=== PATIENT | male | born 1935 | race Caucasian/White ===

== ENCOUNTER 2018-04-22 19:34 | Inpatient (IN) | payer MEDICARE ==
[~2018-04-22] VITALS: Ht 188 cm; Wt 98.5 kg
[2018-04-22] MEDS ORDERED: FINA5TAB4 PO (20:23)
[2018-04-22] MEDS ORDERED: FLUT9.9S NS (20:23)
[2018-04-22] MEDS ORDERED: DONE10TA7 PO (20:23)
[2018-04-22] MEDS ORDERED: QUET25TA5 PO (20:23)
[2018-04-22] MEDS ORDERED: ATOR10TA60 PO (20:23)
[2018-04-22] MEDS ORDERED: MEMA28CA PO (20:23)
[2018-04-22] MEDS ORDERED: PIMA17TA PO (20:23)
[2018-04-22] MEDS ORDERED: LISI-334 PO (20:23)
[2018-04-22] MEDS ORDERED: CALC-98 PO (20:23)
[2018-04-22] MEDS ORDERED: MIRT7.5T8 PO (20:23)
[2018-04-22] MEDS ORDERED: ROPI1TAB PO (20:23)
[2018-04-22] MEDS ORDERED: BUSP15TA PO (20:23)
[2018-04-22] MEDS ORDERED: TAMS0.4C2 PO (20:23)
[2018-04-22] MEDS ORDERED: MULT-671 PO ×2 (20:23)
[2018-04-22] MEDS ORDERED: ACET325T21 PO (20:23)
[2018-04-22] MEDS ORDERED: ASPI-612 PO (20:23)
[2018-04-22] MEDS ORDERED: TRAZ-85 PO (20:23)
[2018-04-22] MEDS ORDERED: MAGNESIUM HYDROXIDE 2,400 MG/30 ML ORAL.SUSP. PO PRN (21:00)
[2018-04-22] MEDS ORDERED: METHYL SALICYLATE/MENTHOL TOPICAL OINTMENT 29GM TUBE. TP PRN (21:00)
[2018-04-22] MEDS ORDERED: MAG HYDROX/AL HYDROX/SIMETH 30 ML ORAL.SUSP PO PRN (21:00)
[2018-04-22] MEDS ORDERED: ACETAMINOPHEN 325 MG TABLET PO PRN (21:15)
[2018-04-22 21:20] VITALS: BP 161/82
[2018-04-22] MEDS: MEMANTINE 10 MG TABLET. PO SCH (21:37)
[2018-04-22] MEDS: DONEPEZIL HCL 10 MG TABLET PO SCH (21:37)
[2018-04-22] MEDS: rOPINIRole 1 MG TABLET. PO SCH (21:37)
[2018-04-22] MEDS: traZODone 50 MG TABLET. PO PRN (21:37)
[2018-04-22] MEDS: MIRTAZAPINE 7.5 MG TABLET. PO SCH (21:37)
[2018-04-22] MEDS: ATORVASTATIN CALCIUM 10 MG TABLET. PO SCH (21:37)
[2018-04-23 05:52] VITALS: BP 149/84
[2018-04-23 07:50] LABS: BASO % 1 % (0-3); EOS # 0.4 x10^3/uL (0.0-0.7); EOS % 7 % (0-3); HEMATOCRIT 44.1 % (39.0-53.0); HEMOGLOBIN 14.7 g/dL (13.0-17.5); LYMPH % 20 % (24-48); MEAN CORPUSCULAR HEMOGLOBIN 30 pg (25-35); MEAN CORPUSCULAR HGB CONC 33 g/dL (31-37); MEAN CORPUSCULAR VOLUME 91 fL (79-100); MONO # 0.6 x10^3/uL (0.0-1.1); MONO % 12 % (0-9); NEUT # 2.9 x10^3uL (1.8-7.7); NEUT % 60 % (31-73); PLATELET COUNT 143 x10^3/uL (140-400); RED BLOOD COUNT 4.83 x10^6/uL (4.30-5.70); RED CELL DISTRIBUTION WIDTH 14.4 % (11.5-14.5)
[2018-04-23 07:58] LABS: ALBUMIN 3.9 g/dL (3.4-5.0); GFR 71.2; MAGNESIUM 2.3 mg/dL (1.8-2.4); POTASSIUM 4.5 mmol/L (3.5-5.1); TOTAL BILIRUBIN 0.4 mg/dL (0.2-1.0); TOTAL PROTEIN 7.7 g/dL (6.4-8.2)
[2018-04-23] MEDS ORDERED: PIMAVANSERIN TARTRATE 34 MG PO SCH (09:00)
[2018-04-23] MEDS: MULTIVITAMIN I-VITE TABLET. PO SCH ×3 (09:00→19:26)
[2018-04-23] MEDS: busPIRone 15 MG TABLET. PO SCH (09:08)
[2018-04-23] MEDS: LISINOPRIL 20 MG TABLET PO SCH (09:08)
[2018-04-23] MEDS: ASPIRIN ENTERIC COATED 81 MG TABLET.DR. PO SCH (09:08)
[2018-04-23] MEDS: FLUTICASONE 50MCG/NASAL SPRAY 16GM BOTTLE. NS SCH (09:08)
[2018-04-23] MEDS: FINASTERIDE 5 MG TABLET PO SCH (09:08)
[2018-04-23] MEDS: CALCIUM CARB/VIT D3 500/200 TABLET PO SCH (09:08)
[2018-04-23] MEDS: MEMANTINE 10 MG TABLET. PO SCH ×2 (09:08→19:26)
[2018-04-23] MEDS: TAMSULOSIN 0.4 MG CAP.ER.24H. PO SCH (09:08)
[2018-04-23 14:03] LABS: THYROID STIM HORMONE (TSH) 1.593 uIU/mL (0.358-3.740)
--- NOTE | 2018-04-23 14:13 | EKG ---
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
[2018-04-23] MEDS: CHOLECALCIFEROL (VITAMIN D3) 50,000 UNIT CAPSULE PO SCH (16:24)
[2018-04-23 16:34] VITALS: BP 112/75
[2018-04-23] MEDS: rOPINIRole 1 MG TABLET. PO SCH (19:26)
[2018-04-23] MEDS: DONEPEZIL HCL 10 MG TABLET PO SCH (19:26)
[2018-04-23] MEDS: ATORVASTATIN CALCIUM 10 MG TABLET. PO SCH (19:26)
[2018-04-23] MEDS: MIRTAZAPINE 7.5 MG TABLET. PO SCH (19:26)
[2018-04-23] MEDS: traZODone 50 MG TABLET. PO PRN ×2 (19:27→21:57)
[2018-04-23 22:16] LABS: THYROXINE 7.5 ug/dL (4.5-12.0)
[2018-04-24] VITALS (9 sets, daily range): BP systolic 68–134; BP diastolic 38–77
[2018-04-24 00:12] LABS: HEMOGLOBIN A1C 5.2 % (4.8-5.6)
--- NOTE | 2018-04-24 00:22 | CONS ---
DATE OF CONSULTATION: 04/23/2018 REASON FOR CONSULTATION: Medical management. HISTORY OF PRESENT ILLNESS: The patient is an 82-year-old male patient who lives at home with his and who was seen in the Emergency Room of [facility] with increased agitation after taking Seroquel for 5 days. He has increased agitation with delusional thoughts, visual hallucination. He told his is leaving him, but his also will kill him. He has not slept since last Thursday thinking they would be evicted due to not paying the rent. The patient was very confused, did not recognize his . 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 He knew that he was in the hospital, but does not know why he is there. He said that his and daughter are his friends. He was diagnosed with dementia about 4-5 years ago, but daughter thinks that his dementia symptoms were mild and his symptom has worsened. The patient repeats the same questions on and on, over and over and his continues to redirect him many times per day. Apparently he became more hostile and originally his family wanted to place the patient at [facility] in [place] where he stayed about 1-1/2 years ago; however, his daughter is a psychologist in a private practice, and she and her mom agreed to admit him to [facility] before going to [facility] and therefore, he was admitted to this facility for inpatient psychiatric stabilization. PAST MEDICAL HISTORY: Significant for anxiety, B12 deficiency, benign prostatic hypertrophy, CVA, hypertension, osteoporosis, and spinal stenosis of the cervical and lumbar spine. PAST SURGICAL HISTORY: Significant for inguinal hernia repair and appendectomy. ALLERGIES: He has no known drug allergies. FAMILY HISTORY: Unremarkable. SOCIAL HISTORY: He is , lives with his . He drinks 1-2 beers per week. He is a former smoker, quit in 1968. REVIEW OF SYSTEMS: Unobtainable. The patient is extremely confused and demented. PHYSICAL EXAMINATION: GENERAL: On examining him, he was sitting comfortably in his chair, in no apparent respiratory distress. There was definitely no pallor, jaundice or cyanosis. No lymphadenopathy, no thyromegaly. No jugular venous distension. No lower limb edema. VITAL SIGNS: His heart rate was 66, blood pressure 149/84, temperature was 96.8, respiratory rate was 18 and oxygen saturation was 97%. HEAD, EYES, EARS, NOSE AND THROAT: Showed normocephalic, atraumatic. NECK: Supple. HEART: Showed normal first and second heart sounds with no gallop, rub or murmur. CHEST: Clear to auscultation. No crepitation or rhonchi. ABDOMEN: Distended, soft, nontender. NEUROLOGIC: He is demented without any obvious lateralizing sign. All his cranial nerves are intact. He moves extremities without difficulty, ambulates with a walker. LABORATORY DATA: Showed a white cell count of 5000, hemoglobin 15, hematocrit 44, MCV 91, and platelet count of 143,000 with normal manual differential. His chemistry showed a serum sodium 142, potassium 4.5, chloride 106, bicarbonate 30, anion gap of 6, BUN 22, creatinine 1, estimated GFR was 71 mL per minute, his glucose was 88, calcium was 9, magnesium 2.3. Estimated serum iron was 42, TIBC was 283. Iron saturation was 15%. Total bilirubin, AST, ALT, alkaline phosphatase were normal. Total protein was 7.7, albumin 3.9. Serum triglycerides were 52, total cholesterol 113, LDL was 39, VLDL was 10, and HDL cholesterol was 64, and ratio 1. Vitamin B12 was 1089 picogram. 25-hydroxy vitamin D was 26 and TSH was 1.593. His treponema pallidum antibody was nonreactive. IMPRESSION: In summary, this is an 82-year-old male patient, who lives with his and was admitted. Because of that, did not sleep at all. . He also has delusional thoughts and visual hallucination. He thought that his is leaving him today and also is planning to kill him. He was started on Seroquel 5 days prior for diagnosis of dementia. The patient became very confused, did not recognize his family. He seems hallucinating, the ceiling is moving, suspicious, and paranoid. will leave him or kill him. He failed outpatient treatment and was [facility] for [facility] psychiatric stabilization. PAST MEDICAL HISTORY: Significant for benign prostatic hypertrophy, hyperlipidemia, hypertension, restless leg syndrome, vitamin B12 deficiency, CVA, and vitamin B12 deficiency. PAST SURGICAL HISTORY: Significant for inguinal hernia repair and appendectomy. His vital signs and lab works are within acceptable range. The only abnormality is vitamin D low and I will write an order for his vitamin D. All in all, the patient seems to be medically very stable. I will certainly continue with all his current medication for the time being. I will follow all his lab works that are still pending at the time of this dictation. Thank you, Dr. Brooks, for allowing me to participate in the care of this patient. SUZAN HERNANDEZ MD DR: ALVIN/simba JOB#: [id number] / [id number]
[2018-04-24] MEDS: ASPIRIN ENTERIC COATED 81 MG TABLET.DR. PO SCH (08:44)
[2018-04-24] MEDS: MULTIVITAMIN I-VITE TABLET. PO SCH ×2 (08:45→20:11)
[2018-04-24] MEDS: busPIRone 15 MG TABLET. PO SCH (08:45)
[2018-04-24] MEDS: FLUTICASONE 50MCG/NASAL SPRAY 16GM BOTTLE. NS SCH (08:45)
[2018-04-24] MEDS: TAMSULOSIN 0.4 MG CAP.ER.24H. PO SCH (08:45)
[2018-04-24] MEDS: FINASTERIDE 5 MG TABLET PO SCH (08:46)
[2018-04-24] MEDS: CALCIUM CARB/VIT D3 500/200 TABLET PO SCH (08:46)
[2018-04-24] MEDS: MEMANTINE 10 MG TABLET. PO SCH ×2 (08:46→20:12)
--- NOTE | 2018-04-24 08:53 | HP ---
ADMIT DATE: 04/23/2018 PSYCHIATRIC ADMISSION HISTORY/EVALUATION This is a late entry, 04/23/2018, covers elements not covered in my initial note 04/23/2018. I met with the patient in the evening of 04/23/2018 and previously discussed with nursing staff on 04/22/2018 and 04/23/2018 to gather information from [facility] where he presented on account of increased confusion, agitation, aggression, while living at home and reportedly, he was recently started on Seroquel about 5 days ago and has been increasingly delusional since then. He thinks he and his are going to be evicted from their apartment and believes his was trying to kill him or leave him. He has had visual hallucinations, seeing the ceiling moving, suspicious and paranoid. Behaviors have been dangerous, out of control, unmanageable, failed outpatient psychiatric interventions, and he presented to the Emergency Room. He has not been sleeping at all, believes he is quite poor. He has failed outpatient psychiatric interventions with his neurologist resulting in this referral. CHIEF COMPLAINT: "I came today." The patient in fact was admitted on 04/22/2018. He is being admitted by his who is his DPOA, Mikayla Alarcon, referred by his primary care physician, Dr. Richelle Waters. HISTORY OF PRESENT ILLNESS: The patient has a history of dementia, Alzheimer's, vascular, possibly Lewy body. He has been residing at home as noted and getting increasingly psychotic, paranoid, hallucinating, agitated, aggressive. He has had significant insomnia as noted, behaviors have been dangerous resulting in this referral. No clear history of bipolar disorder, suicidal or homicidal ideation. PAST PSYCHIATRIC HISTORY: As above. PAST MEDICAL HISTORY: B12 deficiency, BPH status post cerebrovascular accident, status post C. diff infection, hypertension, hyperlipidemia, osteoporosis, spinal stenosis. ALLERGIES: Negative. CODE STATUS: FULL CODE. DIET: Regular. Takes medications whole. Ambulates ad chanel with walker. UA at [facility] Emergency Room 823 was negative. CURRENT PSYCHOTROPICS: BuSpar 15 mg daily, Seroquel was discontinued, Namenda 10 b.i.d., Remeron 7.5 mg at bedtime, Aricept 10 mg at bedtime, trazodone 50 at bedtime p.r.n. FAMILY HISTORY: Noncontributory. SOCIAL HISTORY: No alcohol, drug abuse, physical, sexual or elder abuse history is noted. Not known to be a perpetrator. REACTION TO HOSPITALIZATION: The patient accepting, but not sure where he is. ASSETS: Supportive family. REVIEW OF SYSTEMS: Ambulation impaired with walker. No CV, , pulmonary, eye, ENT system symptoms on review. MENTAL STATUS EXAMINATION: Oriented to himself, unaware of the date, year or where he was. Otherwise, pleasant, hyperverbal, unable to tell me what city he lives in, pointing towards the panoramic doors of the unit stating that is where he came from. Insight, judgment, recent and remote memory, attention, concentration, fund of knowledge poor, consistent with his diagnosis. No active suicidal or homicidal ideation. LABORATORY DATA: Reviewed. IMPRESSION: Major neurocognitive disorder, possibly Lewy body, probably Alzheimer, vascular with delusion; depression; behavioral disturbance; anxiety disorder, unspecified; impulse control disorder, unspecified. Rest as above. PLAN: Admit to Geropsychiatry Unit at [facility]. I will see the patient daily individually from a psychiatric standpoint. Medical followup with Dr. Petersen/Dr. Damon. Continue current psychotropics, observe baseline; then make adjustments as clinically indicated. May start him on an Exelon patch as well given the fact that he may have Lewy body dementia. He has failed Seroquel and apparently has failed treatment on Nuplazid as well. We will have to consider other different options post baseline assessment. Estimated length of stay 10-12 days. DISPOSITION: Plans to memory care in [place]. MAN Beverly CONTI MD DR: ROSALEE/simba JOB#: [id number] / [id number]
[2018-04-24] MEDS: LISINOPRIL 20 MG TABLET PO SCH (09:00)
[2018-04-24] MEDS: ATORVASTATIN CALCIUM 10 MG TABLET. PO SCH (20:11)
[2018-04-24] MEDS: DONEPEZIL HCL 10 MG TABLET PO SCH (20:11)
[2018-04-24] MEDS: rOPINIRole 1 MG TABLET. PO SCH (20:12)
[2018-04-24] MEDS: MIRTAZAPINE 7.5 MG TABLET. PO SCH (20:12)
[2018-04-24] MEDS: traZODone 50 MG TABLET. PO PRN (20:13)
[2018-04-24 21:37] LABS: BASO # 0.1 x10^3/uL (0.0-0.2); BASO % 1 % (0-3); EOS # 0.2 x10^3/uL (0.0-0.7); EOS % 3 % (0-3); HEMATOCRIT 39.8 % (39.0-53.0); HEMOGLOBIN 13.4 g/dL (13.0-17.5); LYMPH # 1.4 x10^3/uL (1.0-4.8); LYMPH % 22 % (24-48); MEAN CORPUSCULAR HEMOGLOBIN 30 pg (25-35); MEAN CORPUSCULAR HGB CONC 34 g/dL (31-37); MEAN CORPUSCULAR VOLUME 90 fL (79-100); MONO # 0.8 x10^3/uL (0.0-1.1); MONO % 12 % (0-9); NEUT # 4.1 x10^3uL (1.8-7.7); NEUT % 62 % (31-73); PLATELET COUNT 141 x10^3/uL (140-400); RED BLOOD COUNT 4.43 x10^6/uL (4.30-5.70); RED CELL DISTRIBUTION WIDTH 14.5 % (11.5-14.5); WHITE BLOOD COUNT 6.6 x10^3/uL (4.0-11.0)
[2018-04-24 21:46] LABS: BGAS PH 7.37 (7.35-7.46)
[2018-04-24 22:13] LABS: ALBUMIN 3.5 g/dL (3.4-5.0); ALBUMIN/GLOBULIN RATIO 1.1 (1.0-1.7); CALCIUM 8.6 mg/dL (8.5-10.1); CREATININE 1.3 mg/dL (0.7-1.3); GFR 52.6; TOTAL BILIRUBIN 0.5 mg/dL (0.2-1.0); TOTAL PROTEIN 6.8 g/dL (6.4-8.2)
[2018-04-24 22:18] LABS: POTASSIUM 5.1 mmol/L (3.5-5.1)
--- NOTE | 2018-04-24 22:22 | PDOC ---
Exam Note: Fredi Note: Please also refer to the separate dictated note~for this date of service dictated separately.~Patient seen individually. Discussed the patient with Nursing staff reviewed the chart.~Reviewed interim history and current functioning. Reviewed vital signs,~Labs/ Radiology~and current medications noted below. Continue current treatment with the changes noted in the dictated addendum note Assessment: Vital Signs: Vital Signs Date Time Temp Pulse Resp B/P (MAP) Pulse Ox O2 Delivery O2 Flow Rate FiO2 04/24/18 21:52 97.6 63 18 104/59 (74) 96 Room Air 04/24/18 21:36 1.0 I&O Intake and Output 04/24/18 07:00 Intake Total 1080 ml Balance 1080 ml Intake Oral 1080 ml # Bowel Movements 1 Labs: Laboratory Tests Test 04/24/18 21:05 04/24/18 21:18 04/24/18 21:30 Glucose (Fingerstick) 165 mg/dL (70-99) H White Blood Count 6.6 x10^3/uL (4.0-11.0) Red Blood Count 4.43 x10^6/uL (4.30-5.70) Hemoglobin 13.4 g/dL (13.0-17.5) Hematocrit 39.8 % (39.0-53.0) Mean Corpuscular Volume 90 fL (79-100) Mean Corpuscular Hemoglobin 30 pg (25-35) Mean Corpuscular Hemoglobin Concent 34 g/dL (31-37) Red Cell Distribution Width 14.5 % (11.5-14.5) Platelet Count 141 x10^3/uL (140-400) Neutrophils (%) (Auto) 62 % (31-73) Lymphocytes (%) (Auto) 22 % (24-48) L Monocytes (%) (Auto) 12 % (0-9) H Eosinophils (%) (Auto) 3 % (0-3) Basophils (%) (Auto) 1 % (0-3) Neutrophils # (Auto) 4.1 x10^3uL (1.8-7.7) Lymphocytes # (Auto) 1.4 x10^3/uL (1.0-4.8) Monocytes # (Auto) 0.8 x10^3/uL (0.0-1.1) Eosinophils # (Auto) 0.2 x10^3/uL (0.0-0.7) Basophils # (Auto) 0.1 x10^3/uL (0.0-0.2) Sodium Level 140 mmol/L (136-145) Potassium Level 5.1 mmol/L (3.5-5.1) Chloride Level 105 mmol/L (98-107) Carbon Dioxide Level 25 mmol/L (21-32) Anion Gap 10 (6-14) Blood Urea Nitrogen 36 mg/dL (8-26) H Creatinine 1.3 mg/dL (0.7-1.3) Estimated GFR (Cockcroft-Gault) 52.6 BUN/Creatinine Ratio 28 (6-20) H Glucose Level 153 mg/dL (70-99) H Lactic Acid Level 1.2 mmol/L (0.4-2.0) Calcium Level 8.6 mg/dL (8.5-10.1) Total Bilirubin 0.5 mg/dL (0.2-1.0) Aspartate Amino Transferase (AST) 29 U/L (15-37) Alanine Aminotransferase (ALT) 24 U/L (16-63) Alkaline Phosphatase 111 U/L (46-116) Creatine Kinase 167 U/L (39-308) Creatine Kinase MB (Mass) 2.2 ng/mL (0.0-3.6) Creatine Kinase MB Relative Index 1.3 % (0-4) Troponin I Quantitative < 0.017 ng/mL (0-0.055) Total Protein 6.8 g/dL (6.4-8.2) Albumin 3.5 g/dL (3.4-5.0) Albumin/Globulin Ratio 1.1 (1.0-1.7) Blood pH 7.37 (7.35-7.46) Blood Gas PCO2 42 mmHg (35-46) Blood Gas PO2 98 mmHg (71-100) Blood Gas HCO3 24 mmol/L (21-28) Arterial Bld O2 Saturation (Calc) 98 % (92-99) FiO2 33 % Current Medications: Meds: Current Medications Multi-Ingredient Ointment (Analgesic [place]) 1 lulu PRN QID PRN TP MUSCLE PAIN; Start 04/22/18 at 21:00 Al Hydroxide/Mg Hydroxide (Mylanta Plus Xs) 15 ml PRN AFTMEALHC PRN PO DYSPEPSIA; Start 04/22/18 at 21:00 Magnesium Hydroxide (Milk Of Magnesia) 2,400 mg PRN QHS PRN PO CONSTIPATION; Start 04/22/18 at 21:00 Mirtazapine (Remeron) 7.5 mg HS PO Last administered on 04/24/18 20:12; Start 04/22/18 at 21:00 Buspirone HCl (Buspar) 15 mg DAILY PO Last administered on 04/24/18 08:45; Start 04/23/18 at 09:00 Donepezil HCl (Aricept) 10 mg QHS PO Last administered on 04/24/18 20:11; Start 04/22/18 at 21:00 Memantine (Namenda) 10 mg BID PO Last administered on 04/24/18 20:12; Start at 21:00 Trazodone HCl (Desyrel) 50 mg PRN QHS PRN PO INSOMNIA Last administered on 04/24 20:13; Start 04/22/18 at 21:15 Non-Formulary Medication (Pimavanserin Tartrate (Nuplazid)) 34 mg DAILY PO ; Start 04/23/18 at 09:00; Stop 04/23/18 at 09:00; Status DC Acetaminophen (Tylenol) 650 mg PRN Q4HRS PRN PO PAIN / TEMP; Start 04/22/18 at 21:15 Lisinopril (Prinivil) 20 mg DAILY PO Last administered on 04/23/18at 09:08; Start 04/23/18 at 09:00 Tamsulosin HCl (Flomax) 0.4 mg DAILY PO Last administered on 04/24/18 08:45; Start 04/23/18 at 09:00 Aspirin (Aspirin Enteric Coated) 81 mg DAILYWBKFT PO Last administered on 08:44; Start 04/23/18 at 08:00 Atorvastatin Calcium (Lipitor) 10 mg QHS PO Last administered on 04/24/18 20: 11; Start 04/22/18 at 21:00 Calcium/Vitamin D (Oscal D 500mg/ 200uts) 1 tab DAILY PO Last administered on 08:46; Start 04/23/18 at 09:00 Finasteride (Proscar) 5 mg DAILY PO Last administered on 04/24/18 08:46; Start 04/23/18 at 09:00 Fluticasone Propionate (Flonase) 1 spray DAILY NS Last administered on 08:45; Start 04/23/18 at 09:00 Multivitamins/ Minerals (I-Liya) 1 tab QHS PO Last administered on 04/24/18 20 :11; Start 04/23/18 at 09:00 Multivitamins/ Minerals (I-Liya) 2 tab DAILY PO Last administered on 04/24/18 08:45; Start 04/23/18 at 09:00 Ropinirole HCl (Requip) 1 mg HS PO Last administered on 04/24/18 20:12; Start 04/22/18 at 21:00 Vitamin D (Vitamin D3) 50,000 unit WEEKLY PO Last administered on 04/23/18 16: 24; Start 04/23/18 at 16:00 Olanzapine (ZyPREXA ZYDIS) 2.5 mg PRN Q2HR PRN PO PSYCHOSIS Last administered on 04/24/18at 20:13; Start 04/23/18 at 21:45 Fluvoxamine Maleate (Luvox) 25 mg HS PO Last administered on 04/24/18 20:12; Start 04/24/18 at 21:00 Sodium Chloride 500 ml @ 0 mls/hr 1X ONCE IV ; Start 04/24/18 at 22:15; Stop at 22:16; Status UNV Active Scripts Active Reported Acetaminophen 325 Mg Tablet 650 Mg PO PRN Q4HRS PRN Aspirin Ec (Aspirin) 81 Mg Tablet.dr 81 Mg PO DAILY Atorvastatin Calcium 10 Mg Tablet 10 Mg PO QHS Buspirone Hcl 15 Mg Tablet 15 Mg PO DAILY Calcium + Vitamin D Tablet (Calcium Carbonate/Vitamin D3) 1 Each Tablet 1 Tab PO DAILY Donepezil Hcl 10 Mg Tablet 10 Mg PO HS Finasteride 5 Mg Tablet 5 Mg PO DAILY Flonase Allergy Relief (Fluticasone Propionate) 9.9 Ml [place].susp 1 Sprays NS DAILY Lisinopril 20 Mg Tablet 20 Mg PO DAILY Namenda Xr (Memantine Hcl) 28 Mg Cap.spr.24 28 Mg PO DAILY Mirtazapine 7.5 Mg Tablet 7.5 Mg PO HS Lkkkv-Kabcrik-Lxyicypf Tablet (Multivit-Min/Iron Fum/Folic AC) 1 Each Tablet 1 Tab PO HS Stybe-Gotulhc-Hkahqnue Tablet (Multivit-Min/Iron Fum/Folic AC) 1 Each Tablet 2 Tab PO DAILY Seroquel (Quetiapine Fumarate) 25 Mg Tablet 12.5 Mg PO PRN PRN Requip (Ropinirole Hcl) 1 Mg Tablet 1 Mg PO HS Tamsulosin Hcl 0.4 Mg Cap.er.24h 0.4 Mg PO DAILY Trazodone Hcl 50 Mg Tablet 50 Mg PO PRN QHS PRN I have reviewed the current psychotropics carefully including drug interactions. Risk benefit ratio favors no change other than as noted in my dictated progress note. Diagnosis: Problems: (1) Anxiety disorder (2) Dementia in Alzheimer's disease with delusions (3) Dementia in Alzheimer's disease with depression (4) Dementia, vascular, with delusions (5) Dementia, vascular, with depression (6) Impulse control disorder ROSAILE CONTI MD Apr 24, 2018 22:22
--- NOTE | 2018-04-24 22:22 | EKG ---
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
[2018-04-24] MEDS ORDERED: IV NORMAL SALINE 500ML 500 ML IV ONE (22:30)
[2018-04-24] MEDS ORDERED: IV NORMAL SALINE 1,000ML 1,000 ML IV SCH (23:00)
[2018-04-25 02:04] VITALS: BP 114/66
[2018-04-25] MEDS ORDERED: IV NORMAL SALINE 1,000ML 1,000 ML IV ONE (03:00)
[2018-04-25 06:59] LABS: HEMATOCRIT 40.6 % (39.0-53.0); HEMOGLOBIN 13.6 g/dL (13.0-17.5); RED BLOOD COUNT 4.47 x10^6/uL (4.30-5.70); RED CELL DISTRIBUTION WIDTH 14.3 % (11.5-14.5); WHITE BLOOD COUNT 6.4 x10^3/uL (4.0-11.0)
[2018-04-25 07:13] LABS: ALBUMIN 3.3 g/dL (3.4-5.0); ALBUMIN/GLOBULIN RATIO 0.9 (1.0-1.7); CALCIUM 8.4 mg/dL (8.5-10.1); GFR 71.2; POTASSIUM 4.6 mmol/L (3.5-5.1); TOTAL BILIRUBIN 0.5 mg/dL (0.2-1.0); TOTAL PROTEIN 6.8 g/dL (6.4-8.2)
[2018-04-25] MEDS: FINASTERIDE 5 MG TABLET PO SCH (08:40)
[2018-04-25] MEDS: CALCIUM CARB/VIT D3 500/200 TABLET PO SCH (08:40)
[2018-04-25] MEDS: MULTIVITAMIN I-VITE TABLET. PO SCH ×2 (08:40→21:12)
[2018-04-25] MEDS: ASPIRIN ENTERIC COATED 81 MG TABLET.DR. PO SCH (08:40)
[2018-04-25] MEDS: FLUTICASONE 50MCG/NASAL SPRAY 16GM BOTTLE. NS SCH (08:41)
[2018-04-25] MEDS: busPIRone 15 MG TABLET. PO SCH (08:41)
[2018-04-25] MEDS: TAMSULOSIN 0.4 MG CAP.ER.24H. PO SCH (08:49)
[2018-04-25] MEDS: LISINOPRIL 20 MG TABLET PO SCH (08:49)
[2018-04-25] MEDS: MEMANTINE 10 MG TABLET. PO SCH ×2 (08:49→21:13)
[2018-04-25 12:15] VITALS: BP 125/81
[2018-04-25 16:30] VITALS: BP 134/62
--- NOTE | 2018-04-25 20:03 | PDOC ---
Exam Note: Fredi Note: Please also refer to the separate dictated note~for this date of service dictated separately.~Patient seen individually. Discussed the patient with Nursing staff reviewed the chart.~Reviewed interim history and current functioning. Reviewed vital signs,~Labs/ Radiology~and current medications noted below. Continue current treatment with the changes noted in the dictated addendum note Assessment: Vital Signs: Vital Signs Date Time Temp Pulse Resp B/P (MAP) Pulse Ox O2 Delivery O2 Flow Rate FiO2 04/25/18 16:30 98.1 83 18 134/62 (86) 96 04/25/18 12:15 Room Air 04/24/18 21:36 1.0 I&O Intake and Output 04/25/18 07:00 Intake Total 960 ml Balance 960 ml Intake Oral 960 ml # Bowel Movements 1 Labs: Laboratory Tests Test 04/24/18 21:05 04/24/18 21:18 04/24/18 21:30 04/25/18 06:43 Glucose (Fingerstick) 165 mg/dL (70-99) H White Blood Count 6.6 x10^3/uL (4.0-11.0) 6.4 x10^3/uL (4.0-11.0) Red Blood Count 4.43 x10^6/uL (4.30-5.70) 4.47 x10^6/uL (4.30-5.70) Hemoglobin 13.4 g/dL (13.0-17.5) 13.6 g/dL (13.0-17.5) Hematocrit 39.8 % (39.0-53.0) 40.6 % (39.0-53.0) Mean Corpuscular Volume 90 fL (79-100) 91 fL (79-100) Mean Corpuscular Hemoglobin 30 pg (25-35) 30 pg (25-35) Mean Corpuscular Hemoglobin Concent 34 g/dL (31-37) 33 g/dL (31-37) Red Cell Distribution Width 14.5 % (11.5-14.5) 14.3 % (11.5-14.5) Platelet Count 141 x10^3/uL (140-400) 132 x10^3/uL (140-400) L Neutrophils (%) (Auto) 62 % (31-73) Lymphocytes (%) (Auto) 22 % (24-48) L Monocytes (%) (Auto) 12 % (0-9) H Eosinophils (%) (Auto) 3 % (0-3) Basophils (%) (Auto) 1 % (0-3) Neutrophils # (Auto) 4.1 x10^3uL (1.8-7.7) Lymphocytes # (Auto) 1.4 x10^3/uL (1.0-4.8) Monocytes # (Auto) 0.8 x10^3/uL (0.0-1.1) Eosinophils # (Auto) 0.2 x10^3/uL (0.0-0.7) Basophils # (Auto) 0.1 x10^3/uL (0.0-0.2) Sodium Level 140 mmol/L (136-145) 143 mmol/L (136-145) Potassium Level 5.1 mmol/L (3.5-5.1) 4.6 mmol/L (3.5-5.1) Chloride Level 105 mmol/L (98-107) 108 mmol/L (98-107) H Carbon Dioxide Level 25 mmol/L (21-32) 28 mmol/L (21-32) Anion Gap 10 (6-14) 7 (6-14) Blood Urea Nitrogen 36 mg/dL (8-26) H 28 mg/dL (8-26) H Creatinine 1.3 mg/dL (0.7-1.3) 1.0 mg/dL (0.7-1.3) Estimated GFR (Cockcroft-Gault) 52.6 71.2 BUN/Creatinine Ratio 28 (6-20) H 28 (6-20) H Glucose Level 153 mg/dL (70-99) H 93 mg/dL (70-99) Lactic Acid Level 1.2 mmol/L (0.4-2.0) Calcium Level 8.6 mg/dL (8.5-10.1) 8.4 mg/dL (8.5-10.1) L Total Bilirubin 0.5 mg/dL (0.2-1.0) 0.5 mg/dL (0.2-1.0) Aspartate Amino Transferase (AST) 29 U/L (15-37) 23 U/L (15-37) Alanine Aminotransferase (ALT) 24 U/L (16-63) 22 U/L (16-63) Alkaline Phosphatase 111 U/L (46-116) 99 U/L (46-116) Creatine Kinase 167 U/L (39-308) Creatine Kinase MB (Mass) 2.2 ng/mL (0.0-3.6) Creatine Kinase MB Relative Index 1.3 % (0-4) Troponin I Quantitative < 0.017 ng/mL (0-0.055) Total Protein 6.8 g/dL (6.4-8.2) 6.8 g/dL (6.4-8.2) Albumin 3.5 g/dL (3.4-5.0) 3.3 g/dL (3.4-5.0) L Albumin/Globulin Ratio 1.1 (1.0-1.7) 0.9 (1.0-1.7) L Blood pH 7.37 (7.35-7.46) Blood Gas PCO2 42 mmHg (35-46) Blood Gas PO2 98 mmHg (71-100) Blood Gas HCO3 24 mmol/L (21-28) Arterial Bld O2 Saturation (Calc) 98 % (92-99) FiO2 33 % Current Medications: Meds: Current Medications Multi-Ingredient Ointment (Analgesic [place]) 1 lulu PRN QID PRN TP MUSCLE PAIN; Start 04/22/18 at 21:00 Al Hydroxide/Mg Hydroxide (Mylanta Plus Xs) 15 ml PRN AFTMEALHC PRN PO DYSPEPSIA; Start 04/22/18 at 21:00 Magnesium Hydroxide (Milk Of Magnesia) 2,400 mg PRN QHS PRN PO CONSTIPATION; Start 04/22/18 at 21:00 Mirtazapine (Remeron) 7.5 mg HS PO Last administered on 04/24/18at 20:12; Start 04/22/18 at 21:00 Buspirone HCl (Buspar) 15 mg DAILY PO Last administered on 04/25/18at 08:41; Start 04/23/18 at 09:00 Donepezil HCl (Aricept) 10 mg QHS PO Last administered on 04/24/18at 20:11; Start 04/22/18 at 21:00 Memantine (Namenda) 10 mg BID PO Last administered on 04/25/18at 08:49; Start at 21:00 Trazodone HCl (Desyrel) 50 mg PRN QHS PRN PO INSOMNIA Last administered on 04/24 20:13; Start 04/22/18 at 21:15 Non-Formulary Medication (Pimavanserin Tartrate (Nuplazid)) 34 mg DAILY PO ; Start 04/23/18 at 09:00; Stop 04/23/18 at 09:00; Status DC Acetaminophen (Tylenol) 650 mg PRN Q4HRS PRN PO PAIN / TEMP; Start 04/22/18 at 21:15 Lisinopril (Prinivil) 20 mg DAILY PO Last administered on 04/25/18 08:49; Start 04/23/18 at 09:00 Tamsulosin HCl (Flomax) 0.4 mg DAILY PO Last administered on 04/25/18 08:49; Start 04/23/18 at 09:00 Aspirin (Aspirin Enteric Coated) 81 mg DAILYWBKFT PO Last administered on 08:40; Start 04/23/18 at 08:00 Atorvastatin Calcium (Lipitor) 10 mg QHS PO Last administered on 04/24/18 20: 11; Start 04/22/18 at 21:00 Calcium/Vitamin D (Oscal D 500mg/ 200uts) 1 tab DAILY PO Last administered on 08:40; Start 04/23/18 at 09:00 Finasteride (Proscar) 5 mg DAILY PO Last administered on 04/25/18 08:40; Start 04/23/18 at 09:00 Fluticasone Propionate (Flonase) 1 spray DAILY NS Last administered on 08:41; Start 04/23/18 at 09:00 Multivitamins/ Minerals (I-Liya) 1 tab QHS PO Last administered on 04/24/18 20 :11; Start 04/23/18 at 09:00 Multivitamins/ Minerals (I-Liya) 2 tab DAILY PO Last administered on 04/25/18 08:40; Start 04/23/18 at 09:00 Ropinirole HCl (Requip) 1 mg HS PO Last administered on 04/24/18 20:12; Start 04/22/18 at 21:00 Vitamin D (Vitamin D3) 50,000 unit WEEKLY PO Last administered on 04/23/18at 16: 24; Start 04/23/18 at 16:00 Olanzapine (ZyPREXA ZYDIS) 2.5 mg PRN Q2HR PRN PO PSYCHOSIS Last administered on 04/24/18at 20:13; Start 04/23/18 at 21:45 Fluvoxamine Maleate (Luvox) 25 mg HS PO Last administered on 04/24/18at 20:12; Start 04/24/18 at 21:00 Sodium Chloride 500 ml @ 0 mls/hr 1X ONCE IV ; Start 04/24/18 at 22:30; Stop at 02:57; Status DC Sodium Chloride 1,000 ml @ 75 mls/hr [id number] IV Last administered on at 23:04; Start 04/24/18 at 23:00; Stop 04/25/18 at 12:31; Status DC Sodium Chloride 1,000 ml @ 1,000 mls/hr 1X ONCE IV Last administered on at 03:04; Start 04/25/18 at 03:00; Stop 04/25/18 at 03:59; Status DC Active Scripts Active Reported Acetaminophen 325 Mg Tablet 650 Mg PO PRN Q4HRS PRN Aspirin Ec (Aspirin) 81 Mg Tablet.dr 81 Mg PO DAILY Atorvastatin Calcium 10 Mg Tablet 10 Mg PO QHS Buspirone Hcl 15 Mg Tablet 15 Mg PO DAILY Calcium + Vitamin D Tablet (Calcium Carbonate/Vitamin D3) 1 Each Tablet 1 Tab PO DAILY Donepezil Hcl 10 Mg Tablet 10 Mg PO HS Finasteride 5 Mg Tablet 5 Mg PO DAILY Flonase Allergy Relief (Fluticasone Propionate) 9.9 Ml [place].susp 1 Sprays NS DAILY Lisinopril 20 Mg Tablet 20 Mg PO DAILY Namenda Xr (Memantine Hcl) 28 Mg Cap.spr.24 28 Mg PO DAILY Mirtazapine 7.5 Mg Tablet 7.5 Mg PO HS Pknpk-Zqtibcb-Xxanktib Tablet (Multivit-Min/Iron Fum/Folic AC) 1 Each Tablet 1 Tab PO HS Fxkbr-Yyrfgrk-Mhuojywz Tablet (Multivit-Min/Iron Fum/Folic AC) 1 Each Tablet 2 Tab PO DAILY Seroquel (Quetiapine Fumarate) 25 Mg Tablet 12.5 Mg PO PRN PRN Requip (Ropinirole Hcl) 1 Mg Tablet 1 Mg PO HS Tamsulosin Hcl 0.4 Mg Cap.er.24h 0.4 Mg PO DAILY Trazodone Hcl 50 Mg Tablet 50 Mg PO PRN QHS PRN I have reviewed the current psychotropics carefully including drug interactions. Risk benefit ratio favors no change other than as noted in my dictated progress note. 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
[2018-04-25] MEDS: DONEPEZIL HCL 10 MG TABLET PO SCH (21:12)
[2018-04-25] MEDS: rOPINIRole 1 MG TABLET. PO SCH (21:13)
[2018-04-25] MEDS: MIRTAZAPINE 7.5 MG TABLET. PO SCH (21:13)
[2018-04-25] MEDS: ATORVASTATIN CALCIUM 10 MG TABLET. PO SCH (21:13)
[2018-04-26 05:32] VITALS: BP 139/73
[2018-04-26 06:43] LABS: BILIRUBIN,URINE NEG (NEG); CLARITY,URINE CLOUDY; COLOR,URINE YELLOW; GLUCOSE,URINE NEG (NEG); NITRITE,URINE NEG (NEG); UROBILINOGEN,URINE 0.2 mg/dL (0.2 mg/dL); WBC,URINE >40 /HPF (0-4)
[2018-04-26 06:44] LABS: BACTERIA,URINE MANY /HPF (0-FEW); SQUAMOUS EPITHELIAL CELL,UR OCC /LPF
[2018-04-26] MEDS: CALCIUM CARB/VIT D3 500/200 TABLET PO SCH (08:34)
[2018-04-26] MEDS: LISINOPRIL 20 MG TABLET PO SCH (08:34)
[2018-04-26] MEDS: ASPIRIN ENTERIC COATED 81 MG TABLET.DR. PO SCH (08:34)
[2018-04-26] MEDS: TAMSULOSIN 0.4 MG CAP.ER.24H. PO SCH (08:34)
[2018-04-26] MEDS: FINASTERIDE 5 MG TABLET PO SCH (08:34)
[2018-04-26] MEDS: MULTIVITAMIN I-VITE TABLET. PO SCH ×2 (08:34→19:57)
[2018-04-26] MEDS: MEMANTINE 10 MG TABLET. PO SCH ×2 (08:34→19:57)
[2018-04-26] MEDS: FLUTICASONE 50MCG/NASAL SPRAY 16GM BOTTLE. NS SCH (08:35)
[2018-04-26] MEDS: busPIRone 15 MG TABLET. PO SCH (08:35)
[2018-04-26 15:39] VITALS: BP 143/78
[2018-04-26] MEDS: rOPINIRole 1 MG TABLET. PO SCH (19:57)
[2018-04-26] MEDS: DONEPEZIL HCL 10 MG TABLET PO SCH (19:57)
[2018-04-26] MEDS: MIRTAZAPINE 7.5 MG TABLET. PO SCH (19:57)
[2018-04-26] MEDS: ATORVASTATIN CALCIUM 10 MG TABLET. PO SCH (19:57)
--- NOTE | 2018-04-26 20:50 | PDOC ---
Exam Note: Fredi Note: Please also refer to the separate dictated note~for this date of service dictated separately.~Patient seen individually. Discussed the patient with Nursing staff reviewed the chart.~Reviewed interim history and current functioning. Reviewed vital signs,~Labs/ Radiology~and current medications noted below. Continue current treatment with the changes noted in the dictated addendum note Assessment: Vital Signs: Vital Signs Date Time Temp Pulse Resp B/P (MAP) Pulse Ox O2 Delivery O2 Flow Rate FiO2 04/26/18 15:39 97.6 76 20 143/78 (99) 97 Room Air 04/24/18 21:36 1.0 I&O Intake and Output 04/26/18 07:00 Intake Total 840 ml Balance 840 ml Intake Oral 840 ml # Bowel Movements 2 Labs: Laboratory Tests Test 04/26/18 06:00 Urine Collection Type Unknown Urine Color Yellow Urine Clarity Cloudy Urine pH 5.5 Urine Specific [place] >=1.030 Urine Protein 30 mg/dl (NEG-TRACE) Urine Glucose (UA) Neg mg/dL (NEG) Urine Ketones (Stick) Neg mg/dL (NEG) Urine Blood Mod (NEG) Urine Nitrite Neg (NEG) Urine Bilirubin Neg (NEG) Urine Urobilinogen Dipstick 0.2 mg/dL (0.2 mg/dL) Urine Leukocyte Esterase Large (NEG) Urine RBC 6-10 /HPF (0-2) Urine WBC >40 /HPF (0-4) Urine Squamous Epithelial Cells Occ /LPF Urine Transitional Epithelial Cells Occ /LPF Urine Bacteria Many /HPF (0-FEW) Urine Mucus Slight /LPF Current Medications: Meds: Current Medications Multi-Ingredient Ointment (Analgesic [place]) 1 lulu PRN QID PRN TP MUSCLE PAIN; Start 04/22/18 at 21:00 Al Hydroxide/Mg Hydroxide (Mylanta Plus Xs) 15 ml PRN AFTMEALHC PRN PO DYSPEPSIA; Start 04/22/18 at 21:00 Magnesium Hydroxide (Milk Of Magnesia) 2,400 mg PRN QHS PRN PO CONSTIPATION; Start 04/22/18 at 21:00 Mirtazapine (Remeron) 7.5 mg HS PO Last administered on 04/26/18at 19:57; Start 04/22/18 at 21:00 Buspirone HCl (Buspar) 15 mg DAILY PO Last administered on 04/26/18 08:35; Start 04/23/18 at 09:00 Donepezil HCl (Aricept) 10 mg QHS PO Last administered on 04/26/18 19:57; Start 04/22/18 at 21:00 Memantine (Namenda) 10 mg BID PO Last administered on 04/26/18 19:57; Start at 21:00 Trazodone HCl (Desyrel) 50 mg PRN QHS PRN PO INSOMNIA Last administered on 04/24 20:13; Start 04/22/18 at 21:15 Non-Formulary Medication (Pimavanserin Tartrate (Nuplazid)) 34 mg DAILY PO ; Start 04/23/18 at 09:00; Stop 04/23/18 at 09:00; Status DC Acetaminophen (Tylenol) 650 mg PRN Q4HRS PRN PO PAIN / TEMP; Start 04/22/18 at 21:15 Lisinopril (Prinivil) 20 mg DAILY PO Last administered on 04/26/18 08:34; Start 04/23/18 at 09:00 Tamsulosin HCl (Flomax) 0.4 mg DAILY PO Last administered on 04/26/18 08:34; Start 04/23/18 at 09:00 Aspirin (Aspirin Enteric Coated) 81 mg DAILYWBKFT PO Last administered on 08:34; Start 04/23/18 at 08:00 Atorvastatin Calcium (Lipitor) 10 mg QHS PO Last administered on 04/26/18 19: 57; Start 04/22/18 at 21:00 Calcium/Vitamin D (Oscal D 500mg/ 200uts) 1 tab DAILY PO Last administered on 08:34; Start 04/23/18 at 09:00 Finasteride (Proscar) 5 mg DAILY PO Last administered on 04/26/18 08:34; Start 04/23/18 at 09:00 Fluticasone Propionate (Flonase) 1 spray DAILY NS Last administered on 08:35; Start 04/23/18 at 09:00 Multivitamins/ Minerals (I-Liya) 1 tab QHS PO Last administered on 04/26/18 19 :57; Start 04/23/18 at 09:00 Multivitamins/ Minerals (I-Liya) 2 tab DAILY PO Last administered on 04/26/18at 08:34; Start 04/23/18 at 09:00 Ropinirole HCl (Requip) 1 mg HS PO Last administered on 04/26/18at 19:57; Start 04/22/18 at 21:00 Vitamin D (Vitamin D3) 50,000 unit WEEKLY PO Last administered on 04/23/18at 16: 24; Start 04/23/18 at 16:00 Olanzapine (ZyPREXA ZYDIS) 2.5 mg PRN Q2HR PRN PO PSYCHOSIS Last administered on 04/26/18at 15:47; Start 04/23/18 at 21:45 Fluvoxamine Maleate (Luvox) 25 mg HS PO Last administered on 04/26/18at 19:57; Start 04/24/18 at 21:00; Stop 04/26/18 at 22:00 Sodium Chloride 500 ml @ 0 mls/hr 1X ONCE IV ; Start 04/24/18 at 22:30; Stop at 02:57; Status DC Sodium Chloride 1,000 ml @ 75 mls/hr [id number] IV Last administered on at 23:04; Start 04/24/18 at 23:00; Stop 04/25/18 at 12:31; Status DC Sodium Chloride 1,000 ml @ 1,000 mls/hr 1X ONCE IV Last administered on at 03:04; Start 04/25/18 at 03:00; Stop 04/25/18 at 03:59; Status DC Fluvoxamine Maleate (Luvox) 50 mg QHS PO ; Start 04/27/18 at 21:00 Active Scripts Active Reported Acetaminophen 325 Mg Tablet 650 Mg PO PRN Q4HRS PRN Aspirin Ec (Aspirin) 81 Mg Tablet.dr 81 Mg PO DAILY Atorvastatin Calcium 10 Mg Tablet 10 Mg PO QHS Buspirone Hcl 15 Mg Tablet 15 Mg PO DAILY Calcium + Vitamin D Tablet (Calcium Carbonate/Vitamin D3) 1 Each Tablet 1 Tab PO DAILY Donepezil Hcl 10 Mg Tablet 10 Mg PO HS Finasteride 5 Mg Tablet 5 Mg PO DAILY Flonase Allergy Relief (Fluticasone Propionate) 9.9 Ml [place].susp 1 Sprays NS DAILY Lisinopril 20 Mg Tablet 20 Mg PO DAILY Namenda Xr (Memantine Hcl) 28 Mg Cap.spr.24 28 Mg PO DAILY Mirtazapine 7.5 Mg Tablet 7.5 Mg PO HS Qmzeb-Uifntxn-Qxzrjzqk Tablet (Multivit-Min/Iron Fum/Folic AC) 1 Each Tablet 1 Tab PO HS Izefa-Elnhlif-Iewyjywl Tablet (Multivit-Min/Iron Fum/Folic AC) 1 Each Tablet 2 Tab PO DAILY Seroquel (Quetiapine Fumarate) 25 Mg Tablet 12.5 Mg PO PRN PRN Requip (Ropinirole Hcl) 1 Mg Tablet 1 Mg PO HS Tamsulosin Hcl 0.4 Mg Cap.er.24h 0.4 Mg PO DAILY Trazodone Hcl 50 Mg Tablet 50 Mg PO PRN QHS PRN I have reviewed the current psychotropics carefully including drug interactions. Risk benefit ratio favors no change other than as noted in my dictated progress note. Diagnosis: Problems: (1) Anxiety disorder (2) Dementia in Alzheimer's disease with delusions (3) Dementia in Alzheimer's disease with depression (4) Dementia, vascular, with delusions (5) Dementia, vascular, with depression (6) Impulse control disorder ROSALIE CONTI MD Apr 26, 2018 20:50
--- NOTE | 2018-04-27 04:40 | PN ---
DATE: 04/24/2018 This is a late entry for 04/24/2018 covers elements not covered in my initial note. SUBJECTIVE: I met with the patient in the evening of 04/24/2018. The patient slept 6-1/2 hours. He remains confused, quite disorganized, forgetful, asking repetitive questions, anxious. REVIEW OF SYSTEMS: Ambulation impaired with walker. No CV, , pulmonary, eye, ENT system symptoms on review. Reliability poor. MENTAL STATUS EXAM: Oriented to himself. Insight, judgment, recent and remote memory, attention, concentration, fund of knowledge poor, consistent with his diagnosis mentioned in my initial note. PLAN: Start Luvox 25 mg p.o. at bedtime for some of his obsessiveness, maintain Namenda, Remeron, Aricept, BuSpar along with trazodone p.r.n. and Zyprexa p.r.n. MAN Beverly CONTI MD DR: ROSALEE/simba JOB#: [id number] / [id number]
--- NOTE | 2018-04-27 04:42 | PN ---
DATE: 04/25/2018 PSYCHIATRIC PROGRESS NOTE This is a late entry of 04/25/2018, covers elements not covered in my initial note. SUBJECTIVE: I met with the patient in the evening. The patient slept 7 hours previous evening, I met with him in his room. He remains confused, extremely disorganized, forgetful, still somewhat obsessively asking the same questions over and over. REVIEW OF SYSTEMS: Ambulation impaired with walker. No CV, , pulmonary, eye, ENT system symptoms on review. He is unaware of where he was, quite disorganized as I met with him extensively in his room. MENTAL STATUS EXAM: Oriented to himself. Insight, judgment, recent and remote memory, attention, concentration, fund of knowledge poor, consistent with his diagnosis mentioned in my initial note. PLAN: No change from initial note. UA is being checked for UTI, which could account for some of his agitation. MAN Beverly CONTI MD DR: ROSALEE/simba JOB#: [id number] / [id number]
[2018-04-27 05:34] VITALS: BP 137/79
[2018-04-27] MEDS: CALCIUM CARB/VIT D3 500/200 TABLET PO SCH (08:34)
[2018-04-27] MEDS: MEMANTINE 10 MG TABLET. PO SCH ×2 (08:34→19:56)
[2018-04-27] MEDS: LISINOPRIL 20 MG TABLET PO SCH (08:34)
[2018-04-27] MEDS: TAMSULOSIN 0.4 MG CAP.ER.24H. PO SCH (08:34)
[2018-04-27] MEDS: busPIRone 15 MG TABLET. PO SCH (08:34)
[2018-04-27] MEDS: ASPIRIN ENTERIC COATED 81 MG TABLET.DR. PO SCH (08:34)
[2018-04-27] MEDS: MULTIVITAMIN I-VITE TABLET. PO SCH ×2 (08:34→19:55)
[2018-04-27] MEDS: FINASTERIDE 5 MG TABLET PO SCH (08:34)
[2018-04-27] MEDS: FLUTICASONE 50MCG/NASAL SPRAY 16GM BOTTLE. NS SCH (08:35)
[2018-04-27 16:06] VITALS: BP 168/93
[2018-04-27] MEDS: ATORVASTATIN CALCIUM 10 MG TABLET. PO SCH (19:55)
[2018-04-27] MEDS: DONEPEZIL HCL 10 MG TABLET PO SCH (19:55)
[2018-04-27] MEDS: MIRTAZAPINE 7.5 MG TABLET. PO SCH (19:56)
[2018-04-27] MEDS: rOPINIRole 1 MG TABLET. PO SCH (19:56)
--- NOTE | 2018-04-27 21:00 | PDOC ---
Exam Note: Fredi Note: Please also refer to the separate dictated note~for this date of service dictated separately.~Patient seen individually. Discussed the patient with Nursing staff reviewed the chart.~Reviewed interim history and current functioning. Reviewed vital signs,~Labs/ Radiology~and current medications noted below. Continue current treatment with the changes noted in the dictated addendum note Assessment: Vital Signs: Vital Signs Date Time Temp Pulse Resp B/P (MAP) Pulse Ox O2 Delivery O2 Flow Rate FiO2 04/27/18 16:06 96.9 87 18 168/93 (118) 97 04/26/18 15:39 Room Air 04/24/18 21:36 1.0 I&O Intake and Output 04/27/18 07:00 Intake Total 720 ml Balance 720 ml Intake Oral 720 ml # Voids 3 # Bowel Movements 1 Current Medications: Meds: Current Medications Multi-Ingredient Ointment (Analgesic [place]) 1 lulu PRN QID PRN TP MUSCLE PAIN; Start 04/22/18 at 21:00 Al Hydroxide/Mg Hydroxide (Mylanta Plus Xs) 15 ml PRN AFTMEALHC PRN PO DYSPEPSIA; Start 04/22/18 at 21:00 Magnesium Hydroxide (Milk Of Magnesia) 2,400 mg PRN QHS PRN PO CONSTIPATION; Start 04/22/18 at 21:00 Mirtazapine (Remeron) 7.5 mg HS PO Last administered on 04/27/18at 19:56; Start 04/22/18 at 21:00 Buspirone HCl (Buspar) 15 mg DAILY PO Last administered on 04/27/18at 08:34; Start 04/23/18 at 09:00; Stop 04/27/18 at 18:13; Status DC Donepezil HCl (Aricept) 10 mg QHS PO Last administered on 04/27/18at 19:55; Start 04/22/18 at 21:00 Memantine (Namenda) 10 mg BID PO Last administered on 04/27/18at 19:56; Start at 21:00 Trazodone HCl (Desyrel) 50 mg PRN QHS PRN PO INSOMNIA Last administered on 04/24at 20:13; Start 04/22/18 at 21:15 Non-Formulary Medication (Pimavanserin Tartrate (Nuplazid)) 34 mg DAILY PO ; Start 04/23/18 at 09:00; Stop 04/23/18 at 09:00; Status DC Acetaminophen (Tylenol) 650 mg PRN Q4HRS PRN PO PAIN / TEMP; Start 04/22/18 at 21:15 Lisinopril (Prinivil) 20 mg DAILY PO Last administered on 04/27/18 08:34; Start 04/23/18 at 09:00 Tamsulosin HCl (Flomax) 0.4 mg DAILY PO Last administered on 04/27/18 08:34; Start 04/23/18 at 09:00 Aspirin (Aspirin Enteric Coated) 81 mg DAILYWBKFT PO Last administered on 08:34; Start 04/23/18 at 08:00 Atorvastatin Calcium (Lipitor) 10 mg QHS PO Last administered on 04/27/18 19: 55; Start 04/22/18 at 21:00 Calcium/Vitamin D (Oscal D 500mg/ 200uts) 1 tab DAILY PO Last administered on 08:34; Start 04/23/18 at 09:00 Finasteride (Proscar) 5 mg DAILY PO Last administered on 04/27/18 08:34; Start 04/23/18 at 09:00 Fluticasone Propionate (Flonase) 1 spray DAILY NS Last administered on 08:35; Start 04/23/18 at 09:00 Multivitamins/ Minerals (I-Liya) 1 tab QHS PO Last administered on 04/27/18 19 :55; Start 04/23/18 at 09:00 Multivitamins/ Minerals (I-Liya) 2 tab DAILY PO Last administered on 04/27/18 08:34; Start 04/23/18 at 09:00 Ropinirole HCl (Requip) 1 mg HS PO Last administered on 04/27/18 19:56; Start 04/22/18 at 21:00 Vitamin D (Vitamin D3) 50,000 unit WEEKLY PO Last administered on 04/23/18 16: 24; Start 04/23/18 at 16:00 Olanzapine (ZyPREXA ZYDIS) 2.5 mg PRN Q2HR PRN PO PSYCHOSIS Last administered on 04/26/18 15:47; Start 04/23/18 at 21:45 Fluvoxamine Maleate (Luvox) 25 mg HS PO Last administered on 04/26/18at 19:57; Start 04/24/18 at 21:00; Stop 04/26/18 at 23:58; Status DC Sodium Chloride 500 ml @ 0 mls/hr 1X ONCE IV ; Start 04/24/18 at 22:30; Stop at 02:57; Status DC Sodium Chloride 1,000 ml @ 75 mls/hr [id number] IV Last administered on at 23:04; Start 04/24/18 at 23:00; Stop 04/25/18 at 12:31; Status DC Sodium Chloride 1,000 ml @ 1,000 mls/hr 1X ONCE IV Last administered on at 03:04; Start 04/25/18 at 03:00; Stop 04/25/18 at 03:59; Status DC Fluvoxamine Maleate (Luvox) 50 mg QHS PO Last administered on 04/27/18at 20:02; Start 04/27/18 at 21:00 Buspirone HCl (Buspar) 10 mg DAILY@0900,1700 PO ; Start 04/28/18 at 09:00 Active Scripts Active Reported Acetaminophen 325 Mg Tablet 650 Mg PO PRN Q4HRS PRN Aspirin Ec (Aspirin) 81 Mg Tablet.dr 81 Mg PO DAILY Atorvastatin Calcium 10 Mg Tablet 10 Mg PO QHS Buspirone Hcl 15 Mg Tablet 15 Mg PO DAILY Calcium + Vitamin D Tablet (Calcium Carbonate/Vitamin D3) 1 Each Tablet 1 Tab PO DAILY Donepezil Hcl 10 Mg Tablet 10 Mg PO HS Finasteride 5 Mg Tablet 5 Mg PO DAILY Flonase Allergy Relief (Fluticasone Propionate) 9.9 Ml [place].susp 1 Sprays NS DAILY Lisinopril 20 Mg Tablet 20 Mg PO DAILY Namenda Xr (Memantine Hcl) 28 Mg Cap.spr.24 28 Mg PO DAILY Mirtazapine 7.5 Mg Tablet 7.5 Mg PO HS Tmhxb-Lrffhyw-Wcvajego Tablet (Multivit-Min/Iron Fum/Folic AC) 1 Each Tablet 1 Tab PO HS Svrni-Cwnqybi-Urbyixeu Tablet (Multivit-Min/Iron Fum/Folic AC) 1 Each Tablet 2 Tab PO DAILY Seroquel (Quetiapine Fumarate) 25 Mg Tablet 12.5 Mg PO PRN PRN Requip (Ropinirole Hcl) 1 Mg Tablet 1 Mg PO HS Tamsulosin Hcl 0.4 Mg Cap.er.24h 0.4 Mg PO DAILY Trazodone Hcl 50 Mg Tablet 50 Mg PO PRN QHS PRN I have reviewed the current psychotropics carefully including drug interactions. Risk benefit ratio favors no change other than as noted in my dictated progress note. Diagnosis: Problems: (1) Anxiety disorder (2) Dementia in Alzheimer's disease with delusions (3) Dementia in Alzheimer's disease with depression (4) Dementia, vascular, with delusions (5) Dementia, vascular, with depression (6) Impulse control disorder ROSALIE CONTI MD Apr 27, 2018 21:00
--- NOTE | 2018-04-27 23:22 | PN ---
DATE: 04/26/2018 This is a late entry for 04/26/2018 covers elements not covered in my initial note. SUBJECTIVE: I met with the patient in the evening. The patient's UA has reflex to culture, probably has a UTI. He has been intermittently agitated, slept 7-1/2 hours previous evening, received Zyprexa p.r.n. He has been paranoid, writing notes, is unaware of where he is. Fluids are being pushed. He is on a low-salt diet. REVIEW OF SYSTEMS: Ambulation impaired with walker. No CV, , pulmonary, eye, ENT system symptoms on review. MENTAL STATUS EXAM: I sat with the patient at some length to assess him. He is oriented to himself, anxious, restless, hyperverbal, unable to follow conversations, consistent with his diagnosis. Oriented to himself. Insight, judgment, recent and remote memory, attention, concentration, fund of knowledge poor, consistent with his diagnosis mentioned in my initial note. PLAN: The patient does have some OCD symptoms. After he has been on Luvox 25 mg for 3 days, we will increase to 50. Treat UTI. Rest unchanged. MAN Beverly CONTI MD DR: ROSALEE/simba JOB#: [id number] / [id number]
[2018-04-28 05:58] VITALS: BP 148/79
[2018-04-28] MEDS: TAMSULOSIN 0.4 MG CAP.ER.24H. PO SCH (08:05)
[2018-04-28] MEDS: MULTIVITAMIN I-VITE TABLET. PO SCH ×2 (08:05→20:25)
[2018-04-28] MEDS: ASPIRIN ENTERIC COATED 81 MG TABLET.DR. PO SCH (08:05)
[2018-04-28] MEDS: CALCIUM CARB/VIT D3 500/200 TABLET PO SCH (08:05)
[2018-04-28] MEDS: MEMANTINE 10 MG TABLET. PO SCH ×2 (08:05→20:25)
[2018-04-28] MEDS: LISINOPRIL 20 MG TABLET PO SCH (08:05)
[2018-04-28] MEDS: FINASTERIDE 5 MG TABLET PO SCH (08:05)
[2018-04-28] MEDS: FLUTICASONE 50MCG/NASAL SPRAY 16GM BOTTLE. NS SCH (08:06)
[2018-04-28] MEDS: busPIRone 10 MG TABLET. PO SCH ×2 (08:09→17:06)
[2018-04-28 16:20] VITALS: BP 136/75
[2018-04-28] MEDS: DONEPEZIL HCL 10 MG TABLET PO SCH (20:25)
[2018-04-28] MEDS: MIRTAZAPINE 7.5 MG TABLET. PO SCH (20:25)
[2018-04-28] MEDS: rOPINIRole 1 MG TABLET. PO SCH (20:25)
[2018-04-28] MEDS: ATORVASTATIN CALCIUM 10 MG TABLET. PO SCH (20:25)
--- NOTE | 2018-04-28 21:05 | PDOC ---
Exam Note: Fredi Note: Please also refer to the separate dictated note~for this date of service dictated separately.~Patient seen individually. Discussed the patient with Nursing staff reviewed the chart.~Reviewed interim history and current functioning. Reviewed vital signs,~Labs/ Radiology~and current medications noted below. Continue current treatment with the changes noted in the dictated addendum note Assessment: Vital Signs: Vital Signs Date Time Temp Pulse Resp B/P (MAP) Pulse Ox O2 Delivery O2 Flow Rate FiO2 04/28/18 16:20 98.0 73 20 136/75 (95) 95 04/26/18 15:39 Room Air 04/24/18 21:36 1.0 I&O Intake and Output 04/28/18 07:00 Intake Total 1200 ml Balance 1200 ml Intake Oral 1200 ml # Bowel Movements 1 Current Medications: Meds: Current Medications Multi-Ingredient Ointment (Analgesic [place]) 1 lulu PRN QID PRN TP MUSCLE PAIN; Start 04/22/18 at 21:00 Al Hydroxide/Mg Hydroxide (Mylanta Plus Xs) 15 ml PRN AFTMEALHC PRN PO DYSPEPSIA; Start 04/22/18 at 21:00 Magnesium Hydroxide (Milk Of Magnesia) 2,400 mg PRN QHS PRN PO CONSTIPATION; Start 04/22/18 at 21:00 Mirtazapine (Remeron) 7.5 mg HS PO Last administered on 04/28/18at 20:25; Start 04/22/18 at 21:00 Buspirone HCl (Buspar) 15 mg DAILY PO Last administered on 04/27/18at 08:34; Start 04/23/18 at 09:00; Stop 04/27/18 at 18:13; Status DC Donepezil HCl (Aricept) 10 mg QHS PO Last administered on 04/28/18at 20:25; Start 04/22/18 at 21:00 Memantine (Namenda) 10 mg BID PO Last administered on 04/28/18 20:25; Start at 21:00 Trazodone HCl (Desyrel) 50 mg PRN QHS PRN PO INSOMNIA Last administered on 04/24at 20:13; Start 04/22/18 at 21:15 Non-Formulary Medication (Pimavanserin Tartrate (Nuplazid)) 34 mg DAILY PO ; Start 04/23/18 at 09:00; Stop 04/23/18 at 09:00; Status DC Acetaminophen (Tylenol) 650 mg PRN Q4HRS PRN PO PAIN / TEMP; Start 04/22/18 at 21:15 Lisinopril (Prinivil) 20 mg DAILY PO Last administered on 04/28/18 08:05; Start 04/23/18 at 09:00 Tamsulosin HCl (Flomax) 0.4 mg DAILY PO Last administered on 04/28/18 08:05; Start 04/23/18 at 09:00 Aspirin (Aspirin Enteric Coated) 81 mg DAILYWBKFT PO Last administered on 08:05; Start 04/23/18 at 08:00 Atorvastatin Calcium (Lipitor) 10 mg QHS PO Last administered on 04/28/18 20: 25; Start 04/22/18 at 21:00 Calcium/Vitamin D (Oscal D 500mg/ 200uts) 1 tab DAILY PO Last administered on 08:05; Start 04/23/18 at 09:00 Finasteride (Proscar) 5 mg DAILY PO Last administered on 04/28/18 08:05; Start 04/23/18 at 09:00 Fluticasone Propionate (Flonase) 1 spray DAILY NS Last administered on 08:06; Start 04/23/18 at 09:00 Multivitamins/ Minerals (I-Liya) 1 tab QHS PO Last administered on 04/28/18 20 :25; Start 04/23/18 at 09:00 Multivitamins/ Minerals (I-Liya) 2 tab DAILY PO Last administered on 04/28/18 08:05; Start 04/23/18 at 09:00 Ropinirole HCl (Requip) 1 mg HS PO Last administered on 04/28/18 20:25; Start 04/22/18 at 21:00 Vitamin D (Vitamin D3) 50,000 unit WEEKLY PO Last administered on 04/23/18 16: 24; Start 04/23/18 at 16:00 Olanzapine (ZyPREXA ZYDIS) 2.5 mg PRN Q2HR PRN PO PSYCHOSIS Last administered on 04/26/18 15:47; Start 04/23/18 at 21:45 Fluvoxamine Maleate (Luvox) 25 mg HS PO Last administered on 04/26/18at 19:57; Start 04/24/18 at 21:00; Stop 04/26/18 at 23:58; Status DC Sodium Chloride 500 ml @ 0 mls/hr 1X ONCE IV ; Start 04/24/18 at 22:30; Stop at 02:57; Status DC Sodium Chloride 1,000 ml @ 75 mls/hr [id number] IV Last administered on at 23:04; Start 04/24/18 at 23:00; Stop 04/25/18 at 12:31; Status DC Sodium Chloride 1,000 ml @ 1,000 mls/hr 1X ONCE IV Last administered on at 03:04; Start 04/25/18 at 03:00; Stop 04/25/18 at 03:59; Status DC Fluvoxamine Maleate (Luvox) 50 mg QHS PO Last administered on 04/28/18at 20:24; Start 04/27/18 at 21:00 Buspirone HCl (Buspar) 10 mg DAILY@0900,1700 PO Last administered on 04/28/18at 17:06; Start 04/28/18 at 09:00 Active Scripts Active Reported Acetaminophen 325 Mg Tablet 650 Mg PO PRN Q4HRS PRN Aspirin Ec (Aspirin) 81 Mg Tablet.dr 81 Mg PO DAILY Atorvastatin Calcium 10 Mg Tablet 10 Mg PO QHS Buspirone Hcl 15 Mg Tablet 15 Mg PO DAILY Calcium + Vitamin D Tablet (Calcium Carbonate/Vitamin D3) 1 Each Tablet 1 Tab PO DAILY Donepezil Hcl 10 Mg Tablet 10 Mg PO HS Finasteride 5 Mg Tablet 5 Mg PO DAILY Flonase Allergy Relief (Fluticasone Propionate) 9.9 Ml [place].susp 1 Sprays NS DAILY Lisinopril 20 Mg Tablet 20 Mg PO DAILY Namenda Xr (Memantine Hcl) 28 Mg Cap.spr.24 28 Mg PO DAILY Mirtazapine 7.5 Mg Tablet 7.5 Mg PO HS Xozay-Uasegzs-Ehducpvn Tablet (Multivit-Min/Iron Fum/Folic AC) 1 Each Tablet 1 Tab PO HS Ugxgb-Qbrfmvs-Fsokjyhu Tablet (Multivit-Min/Iron Fum/Folic AC) 1 Each Tablet 2 Tab PO DAILY Seroquel (Quetiapine Fumarate) 25 Mg Tablet 12.5 Mg PO PRN PRN Requip (Ropinirole Hcl) 1 Mg Tablet 1 Mg PO HS Tamsulosin Hcl 0.4 Mg Cap.er.24h 0.4 Mg PO DAILY Trazodone Hcl 50 Mg Tablet 50 Mg PO PRN QHS PRN I have reviewed the current psychotropics carefully including drug interactions. Risk benefit ratio favors no change other than as noted in my dictated progress note. 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
--- NOTE | 2018-04-29 04:30 | PN ---
DATE: 04/27/2018 PSYCHIATRIC PROGRESS NOTE This is a late entry for 04/27/2018, covers elements not covered in my initial note. SUBJECTIVE: I met with the patient in the evening. The patient slept 6-3/4 hours previous evening, remains extremely confused, asking the same questions over and over. I met with him several times on rounds. He had forgotten that I had met with him earlier. He is on BuSpar 15 mg daily. We will change it to 10 mg at 9:00 a.m., 5:00 p.m. REVIEW OF SYSTEMS: Ambulation impaired with walker. No CV, , pulmonary, eye, ENT system symptoms on review. MENTAL STATUS EXAM: Oriented to himself. Insight, judgment, recent and remote memory, attention, concentration, fund of knowledge poor, consistent with his diagnosis mentioned in my initial note. PLAN: Change the BuSpar as above. Rest unchanged from initial note. ROSALIE CONTI MD DR: ROSALEE/simba JOB#: [id number] / [id number]
[2018-04-29 05:59] VITALS: BP 157/88
[2018-04-29] MEDS: FINASTERIDE 5 MG TABLET PO SCH (08:09)
[2018-04-29] MEDS: TAMSULOSIN 0.4 MG CAP.ER.24H. PO SCH (08:09)
[2018-04-29] MEDS: CALCIUM CARB/VIT D3 500/200 TABLET PO SCH (08:10)
[2018-04-29] MEDS: MULTIVITAMIN I-VITE TABLET. PO SCH ×2 (08:10→19:28)
[2018-04-29] MEDS: LISINOPRIL 20 MG TABLET PO SCH (08:10)
[2018-04-29] MEDS: MEMANTINE 10 MG TABLET. PO SCH ×2 (08:10→19:28)
[2018-04-29] MEDS: ASPIRIN ENTERIC COATED 81 MG TABLET.DR. PO SCH (08:10)
[2018-04-29] MEDS: busPIRone 10 MG TABLET. PO SCH ×2 (08:10→16:20)
[2018-04-29] MEDS: FLUTICASONE 50MCG/NASAL SPRAY 16GM BOTTLE. NS SCH (08:11)
[2018-04-29 16:17] VITALS: BP 164/71
[2018-04-29] MEDS: DONEPEZIL HCL 10 MG TABLET PO SCH (19:27)
[2018-04-29] MEDS: MIRTAZAPINE 7.5 MG TABLET. PO SCH (19:28)
[2018-04-29] MEDS: rOPINIRole 1 MG TABLET. PO SCH (19:28)
[2018-04-29] MEDS: ATORVASTATIN CALCIUM 10 MG TABLET. PO SCH (19:28)
--- NOTE | 2018-04-29 20:54 | PDOC ---
Exam Note: Fredi Note: Please also refer to the separate dictated note~for this date of service dictated separately.~Patient seen individually. Discussed the patient with Nursing staff reviewed the chart.~Reviewed interim history and current functioning. Reviewed vital signs,~Labs/ Radiology~and current medications noted below. Continue current treatment with the changes noted in the dictated addendum note Assessment: Vital Signs: Vital Signs Date Time Temp Pulse Resp B/P (MAP) Pulse Ox O2 Delivery O2 Flow Rate FiO2 04/29/18 16:17 97.4 68 18 164/71 (102) 96 04/26/18 15:39 Room Air 04/24/18 21:36 1.0 I&O Intake and Output 04/29/18 07:00 Intake Total 1080 ml Balance 1080 ml Intake Oral 1080 ml Current Medications: Meds: Current Medications Multi-Ingredient Ointment (Analgesic [place]) 1 lulu PRN QID PRN TP MUSCLE PAIN; Start 04/22/18 at 21:00 Al Hydroxide/Mg Hydroxide (Mylanta Plus Xs) 15 ml PRN AFTMEALHC PRN PO DYSPEPSIA; Start 04/22/18 at 21:00 Magnesium Hydroxide (Milk Of Magnesia) 2,400 mg PRN QHS PRN PO CONSTIPATION; Start 04/22/18 at 21:00 Mirtazapine (Remeron) 7.5 mg HS PO Last administered on 04/29/18at 19:28; Start 04/22/18 at 21:00 Buspirone HCl (Buspar) 15 mg DAILY PO Last administered on 04/27/18at 08:34; Start 04/23/18 at 09:00; Stop 04/27/18 at 18:13; Status DC Donepezil HCl (Aricept) 10 mg QHS PO Last administered on 04/29/18at 19:27; Start 04/22/18 at 21:00 Memantine (Namenda) 10 mg BID PO Last administered on 04/29/18at 19:28; Start at 21:00 Trazodone HCl (Desyrel) 50 mg PRN QHS PRN PO INSOMNIA Last administered on 04/24at 20:13; Start 04/22/18 at 21:15 Non-Formulary Medication (Pimavanserin Tartrate (Nuplazid)) 34 mg DAILY PO ; Start 04/23/18 at 09:00; Stop 04/23/18 at 09:00; Status DC Acetaminophen (Tylenol) 650 mg PRN Q4HRS PRN PO PAIN / TEMP; Start 04/22/18 at 21:15 Lisinopril (Prinivil) 20 mg DAILY PO Last administered on 04/29/18 08:10; Start 04/23/18 at 09:00 Tamsulosin HCl (Flomax) 0.4 mg DAILY PO Last administered on 04/29/18 08:09; Start 04/23/18 at 09:00 Aspirin (Aspirin Enteric Coated) 81 mg DAILYWBKFT PO Last administered on 08:10; Start 04/23/18 at 08:00 Atorvastatin Calcium (Lipitor) 10 mg QHS PO Last administered on 04/29/18 19: 28; Start 04/22/18 at 21:00 Calcium/Vitamin D (Oscal D 500mg/ 200uts) 1 tab DAILY PO Last administered on 08:10; Start 04/23/18 at 09:00 Finasteride (Proscar) 5 mg DAILY PO Last administered on 04/29/18 08:09; Start 04/23/18 at 09:00 Fluticasone Propionate (Flonase) 1 spray DAILY NS Last administered on 08:11; Start 04/23/18 at 09:00 Multivitamins/ Minerals (I-Liya) 1 tab QHS PO Last administered on 04/29/18 19 :28; Start 04/23/18 at 09:00 Multivitamins/ Minerals (I-Liya) 2 tab DAILY PO Last administered on 04/29/18 08:10; Start 04/23/18 at 09:00 Ropinirole HCl (Requip) 1 mg HS PO Last administered on 04/29/18 19:28; Start 04/22/18 at 21:00 Vitamin D (Vitamin D3) 50,000 unit WEEKLY PO Last administered on 04/23/18 16: 24; Start 04/23/18 at 16:00 Olanzapine (ZyPREXA ZYDIS) 2.5 mg PRN Q2HR PRN PO PSYCHOSIS Last administered on 04/29/18 16:20; Start 04/23/18 at 21:45 Fluvoxamine Maleate (Luvox) 25 mg HS PO Last administered on 04/26/18at 19:57; Start 04/24/18 at 21:00; Stop 04/26/18 at 23:58; Status DC Sodium Chloride 500 ml @ 0 mls/hr 1X ONCE IV ; Start 04/24/18 at 22:30; Stop at 02:57; Status DC Sodium Chloride 1,000 ml @ 75 mls/hr [id number] IV Last administered on at 23:04; Start 04/24/18 at 23:00; Stop 04/25/18 at 12:31; Status DC Sodium Chloride 1,000 ml @ 1,000 mls/hr 1X ONCE IV Last administered on at 03:04; Start 04/25/18 at 03:00; Stop 04/25/18 at 03:59; Status DC Fluvoxamine Maleate (Luvox) 50 mg QHS PO Last administered on 04/29/18at 19:28; Start 04/27/18 at 21:00 Buspirone HCl (Buspar) 10 mg DAILY@0900,1700 PO Last administered on 04/29/18at 16:20; Start 04/28/18 at 09:00 Active Scripts Active Reported Acetaminophen 325 Mg Tablet 650 Mg PO PRN Q4HRS PRN Aspirin Ec (Aspirin) 81 Mg Tablet.dr 81 Mg PO DAILY Atorvastatin Calcium 10 Mg Tablet 10 Mg PO QHS Buspirone Hcl 15 Mg Tablet 15 Mg PO DAILY Calcium + Vitamin D Tablet (Calcium Carbonate/Vitamin D3) 1 Each Tablet 1 Tab PO DAILY Donepezil Hcl 10 Mg Tablet 10 Mg PO HS Finasteride 5 Mg Tablet 5 Mg PO DAILY Flonase Allergy Relief (Fluticasone Propionate) 9.9 Ml [place].susp 1 Sprays NS DAILY Lisinopril 20 Mg Tablet 20 Mg PO DAILY Namenda Xr (Memantine Hcl) 28 Mg Cap.spr.24 28 Mg PO DAILY Mirtazapine 7.5 Mg Tablet 7.5 Mg PO HS Bxpuk-Jamvokw-Yfymomue Tablet (Multivit-Min/Iron Fum/Folic AC) 1 Each Tablet 1 Tab PO HS Yyaeu-Ixrmrll-Nnhxoevk Tablet (Multivit-Min/Iron Fum/Folic AC) 1 Each Tablet 2 Tab PO DAILY Seroquel (Quetiapine Fumarate) 25 Mg Tablet 12.5 Mg PO PRN PRN Requip (Ropinirole Hcl) 1 Mg Tablet 1 Mg PO HS Tamsulosin Hcl 0.4 Mg Cap.er.24h 0.4 Mg PO DAILY Trazodone Hcl 50 Mg Tablet 50 Mg PO PRN QHS PRN I have reviewed the current psychotropics carefully including drug interactions. Risk benefit ratio favors no change other than as noted in my dictated progress note. Diagnosis: Problems: (1) Anxiety disorder (2) Dementia in Alzheimer's disease with delusions (3) Dementia in Alzheimer's disease with depression (4) Dementia, vascular, with delusions (5) Dementia, vascular, with depression (6) Impulse control disorder ROSALIE CONTI MD Apr 29, 2018 20:54
--- NOTE | 2018-04-30 02:47 | PN ---
DATE: 04/28/2018 This is a late entry for 04/28/2018 covers elements not covered in my initial note. SUBJECTIVE: I met with the patient in the evening. The patient slept 5-3/4 hours previous night. He remains confused, extremely obsessive, repetitive with his questions, forgets that he ____ several times earlier. He believes his is picking him up later in the day. He has been better being around one of the other new patients on the unit. He believes he is in [place] and everyone is in his house. UA is greater than 100,000 staph and we will defer to Dr. Petersen. REVIEW OF SYSTEMS: Positive for impaired ambulation with walker. No CV, , pulmonary, eye, ENT system symptoms on review. Reliability poor. MENTAL STATUS EXAM: Oriented to himself. Insight, judgment, recent and remote memory, attention, concentration, fund of knowledge poor, consistent with his diagnosis mentioned in my initial note. PLAN: No change from initial note. Deferred for management of UTI to Dr. Petersen. MAN Beverly CONTI MD DR: ROSALEE/simba JOB#: [id number] / [id number]
[2018-04-30] MEDS: CALCIUM CARB/VIT D3 500/200 TABLET PO SCH (09:56)
[2018-04-30] MEDS: CHOLECALCIFEROL (VITAMIN D3) 50,000 UNIT CAPSULE PO SCH (09:56)
[2018-04-30] MEDS: ASPIRIN ENTERIC COATED 81 MG TABLET.DR. PO SCH (09:56)
[2018-04-30] MEDS: TAMSULOSIN 0.4 MG CAP.ER.24H. PO SCH (09:56)
[2018-04-30] MEDS: busPIRone 10 MG TABLET. PO SCH ×2 (09:56→17:34)
[2018-04-30] MEDS: MEMANTINE 10 MG TABLET. PO SCH ×2 (09:56→19:45)
[2018-04-30] MEDS: MULTIVITAMIN I-VITE TABLET. PO SCH ×2 (09:56→19:45)
[2018-04-30] MEDS: FINASTERIDE 5 MG TABLET PO SCH (09:57)
[2018-04-30] MEDS: LISINOPRIL 20 MG TABLET PO SCH (09:57)
[2018-04-30] MEDS: FLUTICASONE 50MCG/NASAL SPRAY 16GM BOTTLE. NS SCH (09:58)
[2018-04-30 12:27] LABS: BILIRUBIN,URINE NEG (NEG); CLARITY,URINE CLOUDY; COLOR,URINE YELLOW; GLUCOSE,URINE NEG (NEG); NITRITE,URINE NEG (NEG); UROBILINOGEN,URINE 0.2 mg/dL (0.2 mg/dL); WBC,URINE TNTC /HPF (0-4)
[2018-04-30 12:28] LABS: BACTERIA,URINE MOD /HPF (0-FEW)
[2018-04-30 15:46] VITALS: BP 136/73
[2018-04-30] MEDS: ATORVASTATIN CALCIUM 10 MG TABLET. PO SCH (19:45)
[2018-04-30] MEDS: MIRTAZAPINE 7.5 MG TABLET. PO SCH (19:45)
[2018-04-30] MEDS: rOPINIRole 1 MG TABLET. PO SCH (19:45)
[2018-04-30] MEDS: DONEPEZIL HCL 10 MG TABLET PO SCH (19:45)
[2018-04-30] MEDS: SMZ/TMP 800/160MG TABLET. PO SCH (19:47)
[2018-04-30] MEDS: LACTOBACILLUS RHAMNOSUS GG 1 CAPSULE. PO SCH (19:47)
--- NOTE | 2018-04-30 20:54 | PDOC ---
Exam Note: Fredi Note: Please also refer to the separate dictated note~for this date of service dictated separately.~Patient seen individually. Discussed the patient with Nursing staff reviewed the chart.~Reviewed interim history and current functioning. Reviewed vital signs,~Labs/ Radiology~and current medications noted below. Continue current treatment with the changes noted in the dictated addendum note Assessment: Vital Signs: Vital Signs Date Time Temp Pulse Resp B/P (MAP) Pulse Ox O2 Delivery O2 Flow Rate FiO2 04/30/18 15:46 97.6 72 18 136/73 (94) 97 04/26/18 15:39 Room Air 04/24/18 21:36 1.0 I&O Intake and Output 04/30/18 07:00 Intake Total 1120 ml Balance 1120 ml Intake Oral 1120 ml Labs: Laboratory Tests Test 04/30/18 12:05 Urine Collection Type U cath Urine Color Yellow Urine Clarity Cloudy Urine pH 7.0 Urine Specific [place] 1.020 Urine Protein 30 mg/dl (NEG-TRACE) Urine Glucose (UA) Neg mg/dL (NEG) Urine Ketones (Stick) Neg mg/dL (NEG) Urine Blood Small (NEG) Urine Nitrite Neg (NEG) Urine Bilirubin Neg (NEG) Urine Urobilinogen Dipstick 0.2 mg/dL (0.2 mg/dL) Urine Leukocyte Esterase Large (NEG) Urine RBC 1-2 /HPF (0-2) Urine WBC Tntc /HPF (0-4) Urine Squamous Epithelial Cells None /LPF Urine Bacteria Mod /HPF (0-FEW) Current Medications: Meds: Current Medications Multi-Ingredient Ointment (Analgesic [place]) 1 lulu PRN QID PRN TP MUSCLE PAIN; Start 04/22/18 at 21:00 Al Hydroxide/Mg Hydroxide (Mylanta Plus Xs) 15 ml PRN AFTMEALHC PRN PO DYSPEPSIA; Start 04/22/18 at 21:00 Magnesium Hydroxide (Milk Of Magnesia) 2,400 mg PRN QHS PRN PO CONSTIPATION; Start 04/22/18 at 21:00 Mirtazapine (Remeron) 7.5 mg HS PO Last administered on 04/30/18at 19:45; Start 04/22/18 at 21:00 Buspirone HCl (Buspar) 15 mg DAILY PO Last administered on 04/27/18at 08:34; Start 04/23/18 at 09:00; Stop 04/27/18 at 18:13; Status DC Donepezil HCl (Aricept) 10 mg QHS PO Last administered on 04/30/18 19:45; Start 04/22/18 at 21:00 Memantine (Namenda) 10 mg BID PO Last administered on 04/30/18 19:45; Start at 21:00 Trazodone HCl (Desyrel) 50 mg PRN QHS PRN PO INSOMNIA Last administered on 04/24 20:13; Start 04/22/18 at 21:15 Non-Formulary Medication (Pimavanserin Tartrate (Nuplazid)) 34 mg DAILY PO ; Start 04/23/18 at 09:00; Stop 04/23/18 at 09:00; Status DC Acetaminophen (Tylenol) 650 mg PRN Q4HRS PRN PO PAIN / TEMP; Start 04/22/18 at 21:15 Lisinopril (Prinivil) 20 mg DAILY PO Last administered on 04/30/18 09:57; Start 04/23/18 at 09:00 Tamsulosin HCl (Flomax) 0.4 mg DAILY PO Last administered on 04/30/18 09:56; Start 04/23/18 at 09:00 Aspirin (Aspirin Enteric Coated) 81 mg DAILYWBKFT PO Last administered on 09:56; Start 04/23/18 at 08:00 Atorvastatin Calcium (Lipitor) 10 mg QHS PO Last administered on 04/30/18 19: 45; Start 04/22/18 at 21:00 Calcium/Vitamin D (Oscal D 500mg/ 200uts) 1 tab DAILY PO Last administered on 09:56; Start 04/23/18 at 09:00 Finasteride (Proscar) 5 mg DAILY PO Last administered on 04/30/18 09:57; Start 04/23/18 at 09:00 Fluticasone Propionate (Flonase) 1 spray DAILY NS Last administered on 09:58; Start 04/23/18 at 09:00 Multivitamins/ Minerals (I-Liya) 1 tab QHS PO Last administered on 8/31/18at 19 :45; Start 04/23/18 at 09:00 Multivitamins/ Minerals (I-Liya) 2 tab DAILY PO Last administered on 04/30/18 09:56; Start 04/23/18 at 09:00 Ropinirole HCl (Requip) 1 mg HS PO Last administered on 04/30/18 19:45; Start 04/22/18 at 21:00 Vitamin D (Vitamin D3) 50,000 unit WEEKLY PO Last administered on 04/30/18at 09: 56; Start 04/23/18 at 16:00 Olanzapine (ZyPREXA ZYDIS) 2.5 mg PRN Q2HR PRN PO PSYCHOSIS Last administered on 04/29/18at 16:20; Start 04/23/18 at 21:45 Fluvoxamine Maleate (Luvox) 25 mg HS PO Last administered on 04/26/18at 19:57; Start 04/24/18 at 21:00; Stop 04/26/18 at 23:58; Status DC Sodium Chloride 500 ml @ 0 mls/hr 1X ONCE IV ; Start 04/24/18 at 22:30; Stop at 02:57; Status DC Sodium Chloride 1,000 ml @ 75 mls/hr [id number] IV Last administered on at 23:04; Start 04/24/18 at 23:00; Stop 04/25/18 at 12:31; Status DC Sodium Chloride 1,000 ml @ 1,000 mls/hr 1X ONCE IV Last administered on at 03:04; Start 04/25/18 at 03:00; Stop 04/25/18 at 03:59; Status DC Fluvoxamine Maleate (Luvox) 50 mg QHS PO Last administered on 04/30/18 19:45; Start 04/27/18 at 21:00 Buspirone HCl (Buspar) 10 mg DAILY@0900,1700 PO Last administered on 04/30/18at 17:34; Start 04/28/18 at 09:00 Trimethoprim/ Sulfamethoxazole (Bactrim Ds) 1 tab BID PO Last administered on at 19:47; Start 04/30/18 at 21:00; Stop 05/08/18 at 16:00 Lactobacillus Rhamnosus (Culturelle) 1 cap BID PO Last administered on at 19:47; Start 04/30/18 at 21:00 Active Scripts Active Reported Acetaminophen 325 Mg Tablet 650 Mg PO PRN Q4HRS PRN Aspirin Ec (Aspirin) 81 Mg Tablet.dr 81 Mg PO DAILY Atorvastatin Calcium 10 Mg Tablet 10 Mg PO QHS Buspirone Hcl 15 Mg Tablet 15 Mg PO DAILY Calcium + Vitamin D Tablet (Calcium Carbonate/Vitamin D3) 1 Each Tablet 1 Tab PO DAILY Donepezil Hcl 10 Mg Tablet 10 Mg PO HS Finasteride 5 Mg Tablet 5 Mg PO DAILY Flonase Allergy Relief (Fluticasone Propionate) 9.9 Ml [place].susp 1 Sprays NS DAILY Lisinopril 20 Mg Tablet 20 Mg PO DAILY Namenda Xr (Memantine Hcl) 28 Mg Cap.spr.24 28 Mg PO DAILY Mirtazapine 7.5 Mg Tablet 7.5 Mg PO HS Epfnu-Ukkcfot-Vtvuvlid Tablet (Multivit-Min/Iron Fum/Folic AC) 1 Each Tablet 1 Tab PO HS Tsinj-Fqlzenw-Nagfyvqz Tablet (Multivit-Min/Iron Fum/Folic AC) 1 Each Tablet 2 Tab PO DAILY Seroquel (Quetiapine Fumarate) 25 Mg Tablet 12.5 Mg PO PRN PRN Requip (Ropinirole Hcl) 1 Mg Tablet 1 Mg PO HS Tamsulosin Hcl 0.4 Mg Cap.er.24h 0.4 Mg PO DAILY Trazodone Hcl 50 Mg Tablet 50 Mg PO PRN QHS PRN I have reviewed the current psychotropics carefully including drug interactions. Risk benefit ratio favors no change other than as noted in my dictated progress note. Diagnosis: Problems: (1) Anxiety disorder (2) Dementia in Alzheimer's disease with delusions (3) Dementia in Alzheimer's disease with depression (4) Dementia, vascular, with delusions (5) Dementia, vascular, with depression (6) Impulse control disorder ROSALIE CONTI MD Apr 30, 2018 20:54
--- NOTE | 2018-05-01 03:27 | PN ---
DATE: 04/29/2018 This is a late entry 04/29/2018, covers elements not covered in my initial note. SUBJECTIVE: I met with the patient on evening of 04/29/2018 and staffed at a treatment team meeting with the entire team on morning of 04/29/2018 with Aracelis and Mikayla, the patient's and daughter attending. Overall, the patient remains confused, quite obsessive, ruminative, asking the same question repetitively all day and even during my rounds in the evening, unaware of where he is wanting to be back home, quite confused. Appetite is fair, slept 7 hours. Does have a UTI being treated. REVIEW OF SYSTEMS: Ambulation impaired with walker. No CV, , pulmonary, eye, ENT system symptoms on review. Reliability poor. MENTAL STATUS EXAM: Oriented to himself. Insight, judgment, recent and remote memory, attention, concentration, fund of knowledge poor, consistent with his diagnosis. IMPRESSION: Major neurocognitive disorder, Alzheimer, vascular with delusion, depression, behavioral disturbance; anxiety disorder, unspecified; impulse control disorder, unspecified. PLAN: Continue psychotropics mentioned in my initial note, may need to increase Luvox further gradually. ROSALIE CONTI MD DR: ROSALEE/simba JOB#: [id number] / [id number]
[2018-05-01 06:23] VITALS: BP 152/78
[2018-05-01 08:00] LABS: BASO % 1 % (0-3); EOS # 0.4 x10^3/uL (0.0-0.7); EOS % 6 % (0-3); HEMATOCRIT 40.4 % (39.0-53.0); HEMOGLOBIN 13.4 g/dL (13.0-17.5); LYMPH # 1.1 x10^3/uL (1.0-4.8); LYMPH % 20 % (24-48); MEAN CORPUSCULAR HEMOGLOBIN 30 pg (25-35); MEAN CORPUSCULAR HGB CONC 33 g/dL (31-37); MEAN CORPUSCULAR VOLUME 91 fL (79-100); MONO # 0.7 x10^3/uL (0.0-1.1); MONO % 13 % (0-9); NEUT # 3.4 x10^3uL (1.8-7.7); NEUT % 60 % (31-73); PLATELET COUNT 139 x10^3/uL (140-400); RED BLOOD COUNT 4.46 x10^6/uL (4.30-5.70); RED CELL DISTRIBUTION WIDTH 14.2 % (11.5-14.5); WHITE BLOOD COUNT 5.7 x10^3/uL (4.0-11.0)
[2018-05-01 08:13] LABS: ALBUMIN 3.4 g/dL (3.4-5.0); CALCIUM 8.7 mg/dL (8.5-10.1); GFR 71.2; POTASSIUM 4.2 mmol/L (3.5-5.1); TOTAL BILIRUBIN 0.4 mg/dL (0.2-1.0); TOTAL PROTEIN 6.9 g/dL (6.4-8.2)
[2018-05-01] MEDS: busPIRone 10 MG TABLET. PO SCH ×2 (09:45→17:06)
[2018-05-01] MEDS: ASPIRIN ENTERIC COATED 81 MG TABLET.DR. PO SCH (09:45)
[2018-05-01] MEDS: SMZ/TMP 800/160MG TABLET. PO SCH ×2 (09:45→19:53)
[2018-05-01] MEDS: LACTOBACILLUS RHAMNOSUS GG 1 CAPSULE. PO SCH ×2 (09:45→19:54)
[2018-05-01] MEDS: MEMANTINE 10 MG TABLET. PO SCH ×2 (09:46→19:54)
[2018-05-01] MEDS: CALCIUM CARB/VIT D3 500/200 TABLET PO SCH (09:46)
[2018-05-01] MEDS: MULTIVITAMIN I-VITE TABLET. PO SCH ×2 (09:46→19:54)
[2018-05-01] MEDS: FINASTERIDE 5 MG TABLET PO SCH (09:47)
[2018-05-01] MEDS: LISINOPRIL 20 MG TABLET PO SCH (09:47)
[2018-05-01] MEDS: TAMSULOSIN 0.4 MG CAP.ER.24H. PO SCH (09:47)
[2018-05-01] MEDS: FLUTICASONE 50MCG/NASAL SPRAY 16GM BOTTLE. NS SCH (09:48)
[2018-05-01 16:39] VITALS: BP 146/82
[2018-05-01] MEDS: rOPINIRole 1 MG TABLET. PO SCH (19:53)
[2018-05-01] MEDS: DONEPEZIL HCL 10 MG TABLET PO SCH (19:54)
[2018-05-01] MEDS: ATORVASTATIN CALCIUM 10 MG TABLET. PO SCH (19:54)
[2018-05-01] MEDS: MIRTAZAPINE 7.5 MG TABLET. PO SCH (19:54)
--- NOTE | 2018-05-01 23:08 | PDOC ---
Exam Note: Fredi Note: Please also refer to the separate dictated note~for this date of service dictated separately.~Patient seen individually. Discussed the patient with Nursing staff reviewed the chart.~Reviewed interim history and current functioning. Reviewed vital signs,~Labs/ Radiology~and current medications noted below. Continue current treatment with the changes noted in the dictated addendum note Assessment: Vital Signs: Vital Signs Date Time Temp Pulse Resp B/P (MAP) Pulse Ox O2 Delivery O2 Flow Rate FiO2 05/01/18 16:39 97.6 90 18 146/82 (103) 95 04/26/18 15:39 Room Air I&O Intake and Output 05/01/18 07:00 Intake Total 905 ml Balance 905 ml Intake Oral 905 ml # Bowel Movements 1 Labs: Laboratory Tests Test 05/01/18 07:24 White Blood Count 5.7 x10^3/uL (4.0-11.0) Red Blood Count 4.46 x10^6/uL (4.30-5.70) Hemoglobin 13.4 g/dL (13.0-17.5) Hematocrit 40.4 % (39.0-53.0) Mean Corpuscular Volume 91 fL (79-100) Mean Corpuscular Hemoglobin 30 pg (25-35) Mean Corpuscular Hemoglobin Concent 33 g/dL (31-37) Red Cell Distribution Width 14.2 % (11.5-14.5) Platelet Count 139 x10^3/uL (140-400) L Neutrophils (%) (Auto) 60 % (31-73) Lymphocytes (%) (Auto) 20 % (24-48) L Monocytes (%) (Auto) 13 % (0-9) H Eosinophils (%) (Auto) 6 % (0-3) H Basophils (%) (Auto) 1 % (0-3) Neutrophils # (Auto) 3.4 x10^3uL (1.8-7.7) Lymphocytes # (Auto) 1.1 x10^3/uL (1.0-4.8) Monocytes # (Auto) 0.7 x10^3/uL (0.0-1.1) Eosinophils # (Auto) 0.4 x10^3/uL (0.0-0.7) Basophils # (Auto) 0.0 x10^3/uL (0.0-0.2) Sodium Level 141 mmol/L (136-145) Potassium Level 4.2 mmol/L (3.5-5.1) Chloride Level 106 mmol/L (98-107) Carbon Dioxide Level 31 mmol/L (21-32) Anion Gap 4 (6-14) L Blood Urea Nitrogen 18 mg/dL (8-26) Creatinine 1.0 mg/dL (0.7-1.3) Estimated GFR (Cockcroft-Gault) 71.2 BUN/Creatinine Ratio 18 (6-20) Glucose Level 92 mg/dL (70-99) Calcium Level 8.7 mg/dL (8.5-10.1) Total Bilirubin 0.4 mg/dL (0.2-1.0) Aspartate Amino Transferase (AST) 22 U/L (15-37) Alanine Aminotransferase (ALT) 31 U/L (16-63) Alkaline Phosphatase 112 U/L (46-116) Total Protein 6.9 g/dL (6.4-8.2) Albumin 3.4 g/dL (3.4-5.0) Albumin/Globulin Ratio 1.0 (1.0-1.7) Current Medications: Meds: Current Medications Multi-Ingredient Ointment (Analgesic [place]) 1 lulu PRN QID PRN TP MUSCLE PAIN; Start 04/22/18 at 21:00 Al Hydroxide/Mg Hydroxide (Mylanta Plus Xs) 15 ml PRN AFTMEALHC PRN PO DYSPEPSIA; Start 04/22/18 at 21:00 Magnesium Hydroxide (Milk Of Magnesia) 2,400 mg PRN QHS PRN PO CONSTIPATION; Start 04/22/18 at 21:00 Mirtazapine (Remeron) 7.5 mg HS PO Last administered on 05/01/18at 19:54; Start 04/22/18 at 21:00 Buspirone HCl (Buspar) 15 mg DAILY PO Last administered on 04/27/18at 08:34; Start 04/23/18 at 09:00; Stop 04/27/18 at 18:13; Status DC Donepezil HCl (Aricept) 10 mg QHS PO Last administered on 05/01/18at 19:54; Start 04/22/18 at 21:00 Memantine (Namenda) 10 mg BID PO Last administered on 05/01/18 19:54; Start at 21:00 Trazodone HCl (Desyrel) 50 mg PRN QHS PRN PO INSOMNIA Last administered on 04/24 20:13; Start 04/22/18 at 21:15 Non-Formulary Medication (Pimavanserin Tartrate (Nuplazid)) 34 mg DAILY PO ; Start 04/23/18 at 09:00; Stop 04/23/18 at 09:00; Status DC Acetaminophen (Tylenol) 650 mg PRN Q4HRS PRN PO PAIN / TEMP; Start 04/22/18 at 21:15 Lisinopril (Prinivil) 20 mg DAILY PO Last administered on 05/01/18 09:47; Start 04/23/18 at 09:00 Tamsulosin HCl (Flomax) 0.4 mg DAILY PO Last administered on 05/01/18 09:47; Start 04/23/18 at 09:00 Aspirin (Aspirin Enteric Coated) 81 mg DAILYWBKFT PO Last administered on 09:45; Start 04/23/18 at 08:00 Atorvastatin Calcium (Lipitor) 10 mg QHS PO Last administered on 05/01/18 19:54 ; Start 04/22/18 at 21:00 Calcium/Vitamin D (Oscal D 500mg/ 200uts) 1 tab DAILY PO Last administered on 09:46; Start 04/23/18 at 09:00 Finasteride (Proscar) 5 mg DAILY PO Last administered on 05/01/18 09:47; Start 04/23/18 at 09:00 Fluticasone Propionate (Flonase) 1 spray DAILY NS Last administered on 09:48; Start 04/23/18 at 09:00 Multivitamins/ Minerals (I-Liya) 1 tab QHS PO Last administered on 05/01/18 19: 54; Start 04/23/18 at 09:00 Multivitamins/ Minerals (I-Liya) 2 tab DAILY PO Last administered on 05/01/18 09:46; Start 04/23/18 at 09:00 Ropinirole HCl (Requip) 1 mg HS PO Last administered on 9/1/18at 19:53; Start 04/22/18 at 21:00 Vitamin D (Vitamin D3) 50,000 unit WEEKLY PO Last administered on 04/30/18at 09: 56; Start 04/23/18 at 16:00 Olanzapine (ZyPREXA ZYDIS) 2.5 mg PRN Q2HR PRN PO PSYCHOSIS Last administered on 05/01/18at 17:06; Start 04/23/18 at 21:45 Fluvoxamine Maleate (Luvox) 25 mg HS PO Last administered on 04/26/18at 19:57; Start 04/24/18 at 21:00; Stop 04/26/18 at 23:58; Status DC Sodium Chloride 500 ml @ 0 mls/hr 1X ONCE IV ; Start 04/24/18 at 22:30; Stop at 02:57; Status DC Sodium Chloride 1,000 ml @ 75 mls/hr [id number] IV Last administered on at 23:04; Start 04/24/18 at 23:00; Stop 04/25/18 at 12:31; Status DC Sodium Chloride 1,000 ml @ 1,000 mls/hr 1X ONCE IV Last administered on at 03:04; Start 04/25/18 at 03:00; Stop 04/25/18 at 03:59; Status DC Fluvoxamine Maleate (Luvox) 50 mg QHS PO Last administered on 05/01/18at 19:54; Start 04/27/18 at 21:00 Buspirone HCl (Buspar) 10 mg DAILY@0900,1700 PO Last administered on 05/01/18at 17:06; Start 04/28/18 at 09:00 Trimethoprim/ Sulfamethoxazole (Bactrim Ds) 1 tab BID PO Last administered on 19:53; Start 04/30/18 at 21:00; Stop 05/08/18 at 16:00 Lactobacillus Rhamnosus (Culturelle) 1 cap BID PO Last administered on at 19:54; Start 04/30/18 at 21:00 Active Scripts Active Reported Acetaminophen 325 Mg Tablet 650 Mg PO PRN Q4HRS PRN Aspirin Ec (Aspirin) 81 Mg Tablet.dr 81 Mg PO DAILY Atorvastatin Calcium 10 Mg Tablet 10 Mg PO QHS Buspirone Hcl 15 Mg Tablet 15 Mg PO DAILY Calcium + Vitamin D Tablet (Calcium Carbonate/Vitamin D3) 1 Each Tablet 1 Tab PO DAILY Donepezil Hcl 10 Mg Tablet 10 Mg PO HS Finasteride 5 Mg Tablet 5 Mg PO DAILY Flonase Allergy Relief (Fluticasone Propionate) 9.9 Ml [place].susp 1 Sprays NS DAILY Lisinopril 20 Mg Tablet 20 Mg PO DAILY Namenda Xr (Memantine Hcl) 28 Mg Cap.spr.24 28 Mg PO DAILY Mirtazapine 7.5 Mg Tablet 7.5 Mg PO HS Oqtjv-Xncxwns-Mxqgcszi Tablet (Multivit-Min/Iron Fum/Folic AC) 1 Each Tablet 1 Tab PO HS Msubn-Xxrlvht-Qufayzpd Tablet (Multivit-Min/Iron Fum/Folic AC) 1 Each Tablet 2 Tab PO DAILY Seroquel (Quetiapine Fumarate) 25 Mg Tablet 12.5 Mg PO PRN PRN Requip (Ropinirole Hcl) 1 Mg Tablet 1 Mg PO HS Tamsulosin Hcl 0.4 Mg Cap.er.24h 0.4 Mg PO DAILY Trazodone Hcl 50 Mg Tablet 50 Mg PO PRN QHS PRN I have reviewed the current psychotropics carefully including drug interactions. Risk benefit ratio favors no change other than as noted in my dictated progress note. Diagnosis: Problems: (1) Anxiety disorder (2) Dementia in Alzheimer's disease with delusions (3) Dementia in Alzheimer's disease with depression (4) Dementia, vascular, with delusions (5) Dementia, vascular, with depression (6) Impulse control disorder ROSALIE CONTI MD May 01, 2018 23:08
[2018-05-02 06:28] VITALS: BP 148/81
[2018-05-02] MEDS: TAMSULOSIN 0.4 MG CAP.ER.24H. PO SCH (09:40)
[2018-05-02] MEDS: LACTOBACILLUS RHAMNOSUS GG 1 CAPSULE. PO SCH ×2 (09:40→20:20)
[2018-05-02] MEDS: SMZ/TMP 800/160MG TABLET. PO SCH ×2 (09:40→20:20)
[2018-05-02] MEDS: busPIRone 10 MG TABLET. PO SCH ×2 (09:40→17:01)
[2018-05-02] MEDS: ASPIRIN ENTERIC COATED 81 MG TABLET.DR. PO SCH (09:40)
[2018-05-02] MEDS: MEMANTINE 10 MG TABLET. PO SCH ×2 (09:40→20:20)
[2018-05-02] MEDS: MULTIVITAMIN I-VITE TABLET. PO SCH ×2 (09:40→20:20)
[2018-05-02] MEDS: CALCIUM CARB/VIT D3 500/200 TABLET PO SCH (09:41)
[2018-05-02] MEDS: FINASTERIDE 5 MG TABLET PO SCH (09:41)
[2018-05-02] MEDS: LISINOPRIL 20 MG TABLET PO SCH (09:41)
[2018-05-02] MEDS: FLUTICASONE 50MCG/NASAL SPRAY 16GM BOTTLE. NS SCH (10:10)
--- NOTE | 2018-05-02 11:26 | PN ---
DATE: 04/30/2018 PSYCHIATRIC PROGRESS NOTE This is a late entry 04/30/2018, covers elements not covered in my initial note. SUBJECTIVE: I met with the patient in the evening. The patient remains quite disorganized, repetitive asking the same questions over and over. Slept 5-1/2 hours previous night. He does have UTI, started on Bactrim. REVIEW OF SYSTEMS: Ambulation impaired with walker. No CV, , pulmonary, eye, ENT system symptoms on review. Reliability poor. MENTAL STATUS EXAM: Oriented to himself. Insight, judgment, recent and remote memory, attention, concentration, fund of knowledge poor, consistent with his diagnoses mentioned in my initial note. PLAN: No change from initial note. Treat the UTI. MAN Beverly CONTI MD DR: ROSALEE/simba JOB#: [id number] / [id number]
--- NOTE | 2018-05-02 11:29 | PN ---
DATE: 05/01/2018 This is a late entry, 05/01/2018, covers the elements not covered in my initial note. SUBJECTIVE: I met with the patient in the evening. The patient remains anxious, quite confused. Slept 7-3/4 hours. Family visited at 4 p.m. and after they left, he was more restless, anxious, received Zyprexa. REVIEW OF SYSTEMS: Ambulation impaired. No CV, , pulmonary, eye, ENT system symptoms on review. Reliability poor. MENTAL STATUS EXAM: Oriented to himself. Insight, judgment, recent and remote memory, attention, concentration, fund of knowledge poor, consistent with his diagnosis as mentioned in my initial note including urinary tract infection. PLAN: No change from initial note. MAN Beverly CONTI MD DR: ROSALEE/simba JOB#: [id number] / [id number]
[2018-05-02 16:09] VITALS: BP 107/62
[2018-05-02] MEDS: DONEPEZIL HCL 10 MG TABLET PO SCH (20:19)
[2018-05-02] MEDS: rOPINIRole 1 MG TABLET. PO SCH (20:19)
[2018-05-02] MEDS: ATORVASTATIN CALCIUM 10 MG TABLET. PO SCH (20:19)
[2018-05-02] MEDS: MIRTAZAPINE 7.5 MG TABLET. PO SCH (20:20)
--- NOTE | 2018-05-02 20:52 | PDOC ---
Exam Note: Fredi Note: Please also refer to the separate dictated note~for this date of service dictated separately.~Patient seen individually. Discussed the patient with Nursing staff reviewed the chart.~Reviewed interim history and current functioning. Reviewed vital signs,~Labs/ Radiology~and current medications noted below. Continue current treatment with the changes noted in the dictated addendum note Assessment: Vital Signs: Vital Signs Date Time Temp Pulse Resp B/P (MAP) Pulse Ox O2 Delivery O2 Flow Rate FiO2 05/02/18 16:09 98.0 76 18 107/62 (77) 94 04/26/18 15:39 Room Air I&O Intake and Output 05/02/18 07:00 Intake Total 1160 ml Balance 1160 ml Intake Oral 1160 ml # Voids 1 Current Medications: Meds: Current Medications Multi-Ingredient Ointment (Analgesic [place]) 1 lulu PRN QID PRN TP MUSCLE PAIN; Start 04/22/18 at 21:00 Al Hydroxide/Mg Hydroxide (Mylanta Plus Xs) 15 ml PRN AFTMEALHC PRN PO DYSPEPSIA; Start 04/22/18 at 21:00 Magnesium Hydroxide (Milk Of Magnesia) 2,400 mg PRN QHS PRN PO CONSTIPATION; Start 04/22/18 at 21:00 Mirtazapine (Remeron) 7.5 mg HS PO Last administered on 05/02/18at 20:20; Start 04/22/18 at 21:00 Buspirone HCl (Buspar) 15 mg DAILY PO Last administered on 04/27/18at 08:34; Start 04/23/18 at 09:00; Stop 04/27/18 at 18:13; Status DC Donepezil HCl (Aricept) 10 mg QHS PO Last administered on 05/02/18at 20:19; Start 04/22/18 at 21:00 Memantine (Namenda) 10 mg BID PO Last administered on 05/02/18at 20:20; Start at 21:00 Trazodone HCl (Desyrel) 50 mg PRN QHS PRN PO INSOMNIA Last administered on 04/24at 20:13; Start 04/22/18 at 21:15 Non-Formulary Medication (Pimavanserin Tartrate (Nuplazid)) 34 mg DAILY PO ; Start 04/23/18 at 09:00; Stop 04/23/18 at 09:00; Status DC Acetaminophen (Tylenol) 650 mg PRN Q4HRS PRN PO PAIN / TEMP; Start 04/22/18 at 21:15 Lisinopril (Prinivil) 20 mg DAILY PO Last administered on 05/02/18 09:41; Start 04/23/18 at 09:00 Tamsulosin HCl (Flomax) 0.4 mg DAILY PO Last administered on 05/02/18 09:40; Start 04/23/18 at 09:00 Aspirin (Aspirin Enteric Coated) 81 mg DAILYWBKFT PO Last administered on 09:40; Start 04/23/18 at 08:00 Atorvastatin Calcium (Lipitor) 10 mg QHS PO Last administered on 05/02/18 20:19 ; Start 04/22/18 at 21:00 Calcium/Vitamin D (Oscal D 500mg/ 200uts) 1 tab DAILY PO Last administered on 09:41; Start 04/23/18 at 09:00 Finasteride (Proscar) 5 mg DAILY PO Last administered on 05/02/18 09:41; Start 04/23/18 at 09:00 Fluticasone Propionate (Flonase) 1 spray DAILY NS Last administered on 09:48; Start 04/23/18 at 09:00 Multivitamins/ Minerals (I-Liya) 1 tab QHS PO Last administered on 05/02/18 20: 20; Start 04/23/18 at 09:00 Multivitamins/ Minerals (I-Liya) 2 tab DAILY PO Last administered on 05/02/18 09:40; Start 04/23/18 at 09:00 Ropinirole HCl (Requip) 1 mg HS PO Last administered on 05/02/18 20:19; Start 04/22/18 at 21:00 Vitamin D (Vitamin D3) 50,000 unit WEEKLY PO Last administered on 04/30/18 09: 56; Start 04/23/18 at 16:00 Olanzapine (ZyPREXA ZYDIS) 2.5 mg PRN Q2HR PRN PO PSYCHOSIS Last administered on 05/01/18 17:06; Start 04/23/18 at 21:45 Fluvoxamine Maleate (Luvox) 25 mg HS PO Last administered on 04/26/18at 19:57; Start 04/24/18 at 21:00; Stop 04/26/18 at 23:58; Status DC Sodium Chloride 500 ml @ 0 mls/hr 1X ONCE IV ; Start 04/24/18 at 22:30; Stop at 02:57; Status DC Sodium Chloride 1,000 ml @ 75 mls/hr [id number] IV Last administered on at 23:04; Start 04/24/18 at 23:00; Stop 04/25/18 at 12:31; Status DC Sodium Chloride 1,000 ml @ 1,000 mls/hr 1X ONCE IV Last administered on at 03:04; Start 04/25/18 at 03:00; Stop 04/25/18 at 03:59; Status DC Fluvoxamine Maleate (Luvox) 50 mg QHS PO Last administered on 05/01/18at 19:54; Start 04/27/18 at 21:00; Stop 05/02/18 at 18:10; Status DC Buspirone HCl (Buspar) 10 mg DAILY@0900,1700 PO Last administered on 05/02/18at 17:01; Start 04/28/18 at 09:00 Trimethoprim/ Sulfamethoxazole (Bactrim Ds) 1 tab BID PO Last administered on at 20:20; Start 04/30/18 at 21:00; Stop 05/08/18 at 16:00 Lactobacillus Rhamnosus (Culturelle) 1 cap BID PO Last administered on at 20:20; Start 04/30/18 at 21:00 Fluvoxamine Maleate (Luvox) 75 mg DAILY PO ; Start 05/03/18 at 09:00; Stop at 09:00; Status DC Fluvoxamine Maleate (Luvox) 75 mg DAILY PO ; Start 05/02/18 at 20:30; Stop at 20:30; Status DC Fluvoxamine Maleate (Luvox) 75 mg QHS PO Last administered on 05/02/18at 20:42; Start 05/02/18 at 21:00 Active Scripts Active Reported Acetaminophen 325 Mg Tablet 650 Mg PO PRN Q4HRS PRN Aspirin Ec (Aspirin) 81 Mg Tablet.dr 81 Mg PO DAILY Atorvastatin Calcium 10 Mg Tablet 10 Mg PO QHS Buspirone Hcl 15 Mg Tablet 15 Mg PO DAILY Calcium + Vitamin D Tablet (Calcium Carbonate/Vitamin D3) 1 Each Tablet 1 Tab PO DAILY Donepezil Hcl 10 Mg Tablet 10 Mg PO HS Finasteride 5 Mg Tablet 5 Mg PO DAILY Flonase Allergy Relief (Fluticasone Propionate) 9.9 Ml [place].susp 1 Sprays NS DAILY Lisinopril 20 Mg Tablet 20 Mg PO DAILY Namenda Xr (Memantine Hcl) 28 Mg Cap.spr.24 28 Mg PO DAILY Mirtazapine 7.5 Mg Tablet 7.5 Mg PO HS Wwdos-Vvlzvuk-Makmiyut Tablet (Multivit-Min/Iron Fum/Folic AC) 1 Each Tablet 1 Tab PO HS Uzqqk-Zaqnzjm-Qdyiaocq Tablet (Multivit-Min/Iron Fum/Folic AC) 1 Each Tablet 2 Tab PO DAILY Seroquel (Quetiapine Fumarate) 25 Mg Tablet 12.5 Mg PO PRN PRN Requip (Ropinirole Hcl) 1 Mg Tablet 1 Mg PO HS Tamsulosin Hcl 0.4 Mg Cap.er.24h 0.4 Mg PO DAILY Trazodone Hcl 50 Mg Tablet 50 Mg PO PRN QHS PRN I have reviewed the current psychotropics carefully including drug interactions. Risk benefit ratio favors no change other than as noted in my dictated progress note. Diagnosis: Problems: (1) Anxiety disorder (2) Dementia in Alzheimer's disease with delusions (3) Dementia in Alzheimer's disease with depression (4) Dementia, vascular, with delusions (5) Dementia, vascular, with depression (6) Impulse control disorder ROSALIE CONTI MD May 02, 2018 20:52
[2018-05-03 06:10] VITALS: BP 153/79
[2018-05-03] MEDS: busPIRone 10 MG TABLET. PO SCH ×2 (09:15→17:09)
[2018-05-03] MEDS: SMZ/TMP 800/160MG TABLET. PO SCH ×2 (09:15→20:29)
[2018-05-03] MEDS: FLUTICASONE 50MCG/NASAL SPRAY 16GM BOTTLE. NS SCH (09:15)
[2018-05-03] MEDS: ASPIRIN ENTERIC COATED 81 MG TABLET.DR. PO SCH (09:15)
[2018-05-03] MEDS: MULTIVITAMIN I-VITE TABLET. PO SCH ×2 (09:16→20:29)
[2018-05-03] MEDS: LACTOBACILLUS RHAMNOSUS GG 1 CAPSULE. PO SCH ×2 (09:16→20:29)
[2018-05-03] MEDS: CALCIUM CARB/VIT D3 500/200 TABLET PO SCH (09:16)
[2018-05-03] MEDS: MEMANTINE 10 MG TABLET. PO SCH ×2 (09:16→20:29)
[2018-05-03] MEDS: TAMSULOSIN 0.4 MG CAP.ER.24H. PO SCH (09:16)
[2018-05-03] MEDS: FINASTERIDE 5 MG TABLET PO SCH (09:17)
[2018-05-03] MEDS: LISINOPRIL 20 MG TABLET PO SCH (09:17)
[2018-05-03 16:31] VITALS: BP 181/88
[2018-05-03] MEDS: DONEPEZIL HCL 10 MG TABLET PO SCH (20:29)
[2018-05-03] MEDS: rOPINIRole 1 MG TABLET. PO SCH (20:29)
[2018-05-03] MEDS: ATORVASTATIN CALCIUM 10 MG TABLET. PO SCH (20:29)
[2018-05-03] MEDS: MIRTAZAPINE 7.5 MG TABLET. PO SCH (20:29)
--- NOTE | 2018-05-03 20:52 | PDOC ---
Exam Note: Fredi Note: Please also refer to the separate dictated note~for this date of service dictated separately.~Patient seen individually. Discussed the patient with Nursing staff reviewed the chart.~Reviewed interim history and current functioning. Reviewed vital signs,~Labs/ Radiology~and current medications noted below. Continue current treatment with the changes noted in the dictated addendum note Assessment: Vital Signs: Vital Signs Date Time Temp Pulse Resp B/P (MAP) Pulse Ox O2 Delivery O2 Flow Rate FiO2 05/03/18 16:31 97.4 68 22 181/88 (119) 96 I&O Intake and Output 05/03/18 07:00 Intake Total 1040 ml Balance 1040 ml Intake Oral 1040 ml # Voids 1 Current Medications: Meds: Current Medications Multi-Ingredient Ointment (Analgesic [place]) 1 lulu PRN QID PRN TP MUSCLE PAIN; Start 04/22/18 at 21:00 Al Hydroxide/Mg Hydroxide (Mylanta Plus Xs) 15 ml PRN AFTMEALHC PRN PO DYSPEPSIA; Start 04/22/18 at 21:00 Magnesium Hydroxide (Milk Of Magnesia) 2,400 mg PRN QHS PRN PO CONSTIPATION; Start 04/22/18 at 21:00 Mirtazapine (Remeron) 7.5 mg HS PO Last administered on 05/03/18at 20:29; Start 04/22/18 at 21:00 Buspirone HCl (Buspar) 15 mg DAILY PO Last administered on 04/27/18at 08:34; Start 04/23/18 at 09:00; Stop 04/27/18 at 18:13; Status DC Donepezil HCl (Aricept) 10 mg QHS PO Last administered on 05/03/18at 20:29; Start 04/22/18 at 21:00 Memantine (Namenda) 10 mg BID PO Last administered on 05/03/18 20:29; Start at 21:00 Trazodone HCl (Desyrel) 50 mg PRN QHS PRN PO INSOMNIA Last administered on 04/24at 20:13; Start 04/22/18 at 21:15 Non-Formulary Medication (Pimavanserin Tartrate (Nuplazid)) 34 mg DAILY PO ; Start 04/23/18 at 09:00; Stop 04/23/18 at 09:00; Status DC Acetaminophen (Tylenol) 650 mg PRN Q4HRS PRN PO PAIN / TEMP; Start 04/22/18 at 21:15 Lisinopril (Prinivil) 20 mg DAILY PO Last administered on 05/03/18 09:17; Start 04/23/18 at 09:00 Tamsulosin HCl (Flomax) 0.4 mg DAILY PO Last administered on 05/03/18 09:16; Start 04/23/18 at 09:00 Aspirin (Aspirin Enteric Coated) 81 mg DAILYWBKFT PO Last administered on 09:15; Start 04/23/18 at 08:00 Atorvastatin Calcium (Lipitor) 10 mg QHS PO Last administered on 05/03/18 20:29 ; Start 04/22/18 at 21:00 Calcium/Vitamin D (Oscal D 500mg/ 200uts) 1 tab DAILY PO Last administered on 09:16; Start 04/23/18 at 09:00 Finasteride (Proscar) 5 mg DAILY PO Last administered on 05/03/18 09:17; Start 04/23/18 at 09:00 Fluticasone Propionate (Flonase) 1 spray DAILY NS Last administered on 09:48; Start 04/23/18 at 09:00 Multivitamins/ Minerals (I-Liya) 1 tab QHS PO Last administered on 05/03/18 20: 29; Start 04/23/18 at 09:00 Multivitamins/ Minerals (I-Liya) 2 tab DAILY PO Last administered on 05/03/18 09:16; Start 04/23/18 at 09:00 Ropinirole HCl (Requip) 1 mg HS PO Last administered on 05/03/18 20:29; Start 04/22/18 at 21:00 Vitamin D (Vitamin D3) 50,000 unit WEEKLY PO Last administered on 04/30/18 09: 56; Start 04/23/18 at 16:00 Olanzapine (ZyPREXA ZYDIS) 2.5 mg PRN Q2HR PRN PO PSYCHOSIS Last administered on 05/03/18 15:38; Start 04/23/18 at 21:45 Fluvoxamine Maleate (Luvox) 25 mg HS PO Last administered on 04/26/18at 19:57; Start 04/24/18 at 21:00; Stop 04/26/18 at 23:58; Status DC Sodium Chloride 500 ml @ 0 mls/hr 1X ONCE IV ; Start 04/24/18 at 22:30; Stop at 02:57; Status DC Sodium Chloride 1,000 ml @ 75 mls/hr [id number] IV Last administered on at 23:04; Start 04/24/18 at 23:00; Stop 04/25/18 at 12:31; Status DC Sodium Chloride 1,000 ml @ 1,000 mls/hr 1X ONCE IV Last administered on at 03:04; Start 04/25/18 at 03:00; Stop 04/25/18 at 03:59; Status DC Fluvoxamine Maleate (Luvox) 50 mg QHS PO Last administered on 05/01/18at 19:54; Start 04/27/18 at 21:00; Stop 05/02/18 at 18:10; Status DC Buspirone HCl (Buspar) 10 mg DAILY@0900,1700 PO Last administered on 05/03/18at 17:09; Start 04/28/18 at 09:00 Trimethoprim/ Sulfamethoxazole (Bactrim Ds) 1 tab BID PO Last administered on at 20:29; Start 04/30/18 at 21:00; Stop 05/08/18 at 16:00 Lactobacillus Rhamnosus (Culturelle) 1 cap BID PO Last administered on at 20:29; Start 04/30/18 at 21:00 Fluvoxamine Maleate (Luvox) 75 mg DAILY PO ; Start 05/03/18 at 09:00; Stop at 09:00; Status DC Fluvoxamine Maleate (Luvox) 75 mg DAILY PO ; Start 05/02/18 at 20:30; Stop at 20:30; Status DC Fluvoxamine Maleate (Luvox) 75 mg QHS PO Last administered on 05/03/18at 20:29; Start 05/02/18 at 21:00 Active Scripts Active Reported Acetaminophen 325 Mg Tablet 650 Mg PO PRN Q4HRS PRN Aspirin Ec (Aspirin) 81 Mg Tablet.dr 81 Mg PO DAILY Atorvastatin Calcium 10 Mg Tablet 10 Mg PO QHS Buspirone Hcl 15 Mg Tablet 15 Mg PO DAILY Calcium + Vitamin D Tablet (Calcium Carbonate/Vitamin D3) 1 Each Tablet 1 Tab PO DAILY Donepezil Hcl 10 Mg Tablet 10 Mg PO HS Finasteride 5 Mg Tablet 5 Mg PO DAILY Flonase Allergy Relief (Fluticasone Propionate) 9.9 Ml [place].susp 1 Sprays NS DAILY Lisinopril 20 Mg Tablet 20 Mg PO DAILY Namenda Xr (Memantine Hcl) 28 Mg Cap.spr.24 28 Mg PO DAILY Mirtazapine 7.5 Mg Tablet 7.5 Mg PO HS Oscjz-Qcyfshe-Bzjfvwau Tablet (Multivit-Min/Iron Fum/Folic AC) 1 Each Tablet 1 Tab PO HS Yxzvn-Wcneglr-Myjpiryk Tablet (Multivit-Min/Iron Fum/Folic AC) 1 Each Tablet 2 Tab PO DAILY Seroquel (Quetiapine Fumarate) 25 Mg Tablet 12.5 Mg PO PRN PRN Requip (Ropinirole Hcl) 1 Mg Tablet 1 Mg PO HS Tamsulosin Hcl 0.4 Mg Cap.er.24h 0.4 Mg PO DAILY Trazodone Hcl 50 Mg Tablet 50 Mg PO PRN QHS PRN I have reviewed the current psychotropics carefully including drug interactions. Risk benefit ratio favors no change other than as noted in my dictated progress note. Diagnosis: Problems: (1) Anxiety disorder (2) Dementia in Alzheimer's disease with delusions (3) Dementia in Alzheimer's disease with depression (4) Dementia, vascular, with delusions (5) Dementia, vascular, with depression (6) Impulse control disorder ROSALIE CONTI MD May 03, 2018 20:52
[2018-05-04 05:48] VITALS: BP 143/75
[2018-05-04] MEDS: FLUTICASONE 50MCG/NASAL SPRAY 16GM BOTTLE. NS SCH (09:00)
[2018-05-04] MEDS: busPIRone 10 MG TABLET. PO SCH ×2 (09:15→17:05)
[2018-05-04] MEDS: SMZ/TMP 800/160MG TABLET. PO SCH ×2 (09:15→19:45)
[2018-05-04] MEDS: ASPIRIN ENTERIC COATED 81 MG TABLET.DR. PO SCH (09:15)
[2018-05-04] MEDS: TAMSULOSIN 0.4 MG CAP.ER.24H. PO SCH (09:16)
[2018-05-04] MEDS: LACTOBACILLUS RHAMNOSUS GG 1 CAPSULE. PO SCH ×2 (09:16→19:44)
[2018-05-04] MEDS: MULTIVITAMIN I-VITE TABLET. PO SCH ×2 (09:16→19:44)
[2018-05-04] MEDS: MEMANTINE 10 MG TABLET. PO SCH ×2 (09:17→19:44)
[2018-05-04] MEDS: CALCIUM CARB/VIT D3 500/200 TABLET PO SCH (09:17)
[2018-05-04] MEDS: FINASTERIDE 5 MG TABLET PO SCH (09:18)
[2018-05-04] MEDS: LISINOPRIL 20 MG TABLET PO SCH (09:18)
[2018-05-04 16:43] VITALS: BP 145/61
[2018-05-04] MEDS: DONEPEZIL HCL 10 MG TABLET PO SCH (19:44)
[2018-05-04] MEDS: MIRTAZAPINE 7.5 MG TABLET. PO SCH (19:44)
[2018-05-04] MEDS: rOPINIRole 1 MG TABLET. PO SCH (19:45)
[2018-05-04] MEDS: ATORVASTATIN CALCIUM 10 MG TABLET. PO SCH (19:45)
--- NOTE | 2018-05-04 20:55 | PDOC ---
Exam Note: Fredi Note: Please also refer to the separate dictated note~for this date of service dictated separately.~Patient seen individually. Discussed the patient with Nursing staff reviewed the chart.~Reviewed interim history and current functioning. Reviewed vital signs,~Labs/ Radiology~and current medications noted below. Continue current treatment with the changes noted in the dictated addendum note Assessment: Vital Signs: Vital Signs Date Time Temp Pulse Resp B/P (MAP) Pulse Ox O2 Delivery O2 Flow Rate FiO2 05/04/18 16:43 98.1 60 16 145/61 (89) 96 I&O Intake and Output 05/04/18 07:00 Intake Total 1320 ml Balance 1320 ml Intake Oral 1320 ml # Voids 1 Current Medications: Meds: Current Medications Multi-Ingredient Ointment (Analgesic [place]) 1 lulu PRN QID PRN TP MUSCLE PAIN; Start 04/22/18 at 21:00 Al Hydroxide/Mg Hydroxide (Mylanta Plus Xs) 15 ml PRN AFTMEALHC PRN PO DYSPEPSIA; Start 04/22/18 at 21:00 Magnesium Hydroxide (Milk Of Magnesia) 2,400 mg PRN QHS PRN PO CONSTIPATION; Start 04/22/18 at 21:00 Mirtazapine (Remeron) 7.5 mg HS PO Last administered on 05/04/18 19:44; Start 04/22/18 at 21:00 Buspirone HCl (Buspar) 15 mg DAILY PO Last administered on 04/27/18at 08:34; Start 04/23/18 at 09:00; Stop 04/27/18 at 18:13; Status DC Donepezil HCl (Aricept) 10 mg QHS PO Last administered on 05/04/18 19:44; Start 04/22/18 at 21:00 Memantine (Namenda) 10 mg BID PO Last administered on 05/04/18 19:44; Start at 21:00 Trazodone HCl (Desyrel) 50 mg PRN QHS PRN PO INSOMNIA Last administered on 04/24at 20:13; Start 04/22/18 at 21:15 Non-Formulary Medication (Pimavanserin Tartrate (Nuplazid)) 34 mg DAILY PO ; Start 04/23/18 at 09:00; Stop 04/23/18 at 09:00; Status DC Acetaminophen (Tylenol) 650 mg PRN Q4HRS PRN PO PAIN / TEMP; Start 04/22/18 at 21:15 Lisinopril (Prinivil) 20 mg DAILY PO Last administered on 05/04/18 09:18; Start 04/23/18 at 09:00 Tamsulosin HCl (Flomax) 0.4 mg DAILY PO Last administered on 05/04/18 09:16; Start 04/23/18 at 09:00 Aspirin (Aspirin Enteric Coated) 81 mg DAILYWBKFT PO Last administered on 09:15; Start 04/23/18 at 08:00 Atorvastatin Calcium (Lipitor) 10 mg QHS PO Last administered on 05/04/18 19:45 ; Start 04/22/18 at 21:00 Calcium/Vitamin D (Oscal D 500mg/ 200uts) 1 tab DAILY PO Last administered on 09:17; Start 04/23/18 at 09:00 Finasteride (Proscar) 5 mg DAILY PO Last administered on 05/04/18 09:18; Start 04/23/18 at 09:00 Fluticasone Propionate (Flonase) 1 spray DAILY NS Last administered on 09:00; Start 04/23/18 at 09:00 Multivitamins/ Minerals (I-Liya) 1 tab QHS PO Last administered on 05/04/18 19: 44; Start 04/23/18 at 09:00 Multivitamins/ Minerals (I-Liya) 2 tab DAILY PO Last administered on 05/04/18 09:16; Start 04/23/18 at 09:00 Ropinirole HCl (Requip) 1 mg HS PO Last administered on 05/04/18 19:45; Start 04/22/18 at 21:00 Vitamin D (Vitamin D3) 50,000 unit WEEKLY PO Last administered on 04/30/18 09: 56; Start 04/23/18 at 16:00 Olanzapine (ZyPREXA ZYDIS) 2.5 mg PRN Q2HR PRN PO PSYCHOSIS Last administered on 05/03/18 15:38; Start 04/23/18 at 21:45 Fluvoxamine Maleate (Luvox) 25 mg HS PO Last administered on 04/26/18at 19:57; Start 04/24/18 at 21:00; Stop 04/26/18 at 23:58; Status DC Sodium Chloride 500 ml @ 0 mls/hr 1X ONCE IV ; Start 04/24/18 at 22:30; Stop at 02:57; Status DC Sodium Chloride 1,000 ml @ 75 mls/hr [id number] IV Last administered on at 23:04; Start 04/24/18 at 23:00; Stop 04/25/18 at 12:31; Status DC Sodium Chloride 1,000 ml @ 1,000 mls/hr 1X ONCE IV Last administered on at 03:04; Start 04/25/18 at 03:00; Stop 04/25/18 at 03:59; Status DC Fluvoxamine Maleate (Luvox) 50 mg QHS PO Last administered on 05/01/18at 19:54; Start 04/27/18 at 21:00; Stop 05/02/18 at 18:10; Status DC Buspirone HCl (Buspar) 10 mg DAILY@0900,1700 PO Last administered on 05/04/18at 17:05; Start 04/28/18 at 09:00 Trimethoprim/ Sulfamethoxazole (Bactrim Ds) 1 tab BID PO Last administered on at 19:45; Start 04/30/18 at 21:00; Stop 05/08/18 at 16:00 Lactobacillus Rhamnosus (Culturelle) 1 cap BID PO Last administered on at 19:44; Start 04/30/18 at 21:00 Fluvoxamine Maleate (Luvox) 75 mg DAILY PO ; Start 05/03/18 at 09:00; Stop at 09:00; Status DC Fluvoxamine Maleate (Luvox) 75 mg DAILY PO ; Start 05/02/18 at 20:30; Stop at 20:30; Status DC Fluvoxamine Maleate (Luvox) 75 mg QHS PO Last administered on 05/04/18at 19:44; Start 05/02/18 at 21:00 Active Scripts Active Reported Acetaminophen 325 Mg Tablet 650 Mg PO PRN Q4HRS PRN Aspirin Ec (Aspirin) 81 Mg Tablet.dr 81 Mg PO DAILY Atorvastatin Calcium 10 Mg Tablet 10 Mg PO QHS Buspirone Hcl 15 Mg Tablet 15 Mg PO DAILY Calcium + Vitamin D Tablet (Calcium Carbonate/Vitamin D3) 1 Each Tablet 1 Tab PO DAILY Donepezil Hcl 10 Mg Tablet 10 Mg PO HS Finasteride 5 Mg Tablet 5 Mg PO DAILY Flonase Allergy Relief (Fluticasone Propionate) 9.9 Ml [place].susp 1 Sprays NS DAILY Lisinopril 20 Mg Tablet 20 Mg PO DAILY Namenda Xr (Memantine Hcl) 28 Mg Cap.spr.24 28 Mg PO DAILY Mirtazapine 7.5 Mg Tablet 7.5 Mg PO HS Cbycb-Zkvddqc-Qcevvkwy Tablet (Multivit-Min/Iron Fum/Folic AC) 1 Each Tablet 1 Tab PO HS Laght-Nmacyet-Ywbjfvjh Tablet (Multivit-Min/Iron Fum/Folic AC) 1 Each Tablet 2 Tab PO DAILY Seroquel (Quetiapine Fumarate) 25 Mg Tablet 12.5 Mg PO PRN PRN Requip (Ropinirole Hcl) 1 Mg Tablet 1 Mg PO HS Tamsulosin Hcl 0.4 Mg Cap.er.24h 0.4 Mg PO DAILY Trazodone Hcl 50 Mg Tablet 50 Mg PO PRN QHS PRN I have reviewed the current psychotropics carefully including drug interactions. Risk benefit ratio favors no change other than as noted in my dictated progress note. 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
--- NOTE | 2018-05-05 01:32 | PN ---
DATE: 05/02/2018 This is a late entry 05/02/2018, covers elements not covered in my initial note. SUBJECTIVE: I met with the patient in the evening. The patient slept 7-1/4 hours previous evening. Previous night he was quite anxious, repetitive, obsessive, very forgetful, asking the same question over and over. REVIEW OF SYSTEMS: Ambulation impaired with walker. No CV, , pulmonary, eye, ENT system symptoms on review. He has vague somatic symptoms. MENTAL STATUS EXAM: Oriented to himself. Insight, judgment, recent and remote memory, attention, concentration, fund of knowledge poor, consistent with his diagnosis mentioned in my initial note. LABORATORY DATA: UA greater than 100,000 Staph, defer to Dr. Petersen. IMPRESSION: Unchanged from initial note. PLAN: Increase Luvox to 75 mg at bedtime once he has been on 50 for 3 days. Rest unchanged from initial note. MAN Beverly CONTI MD DR: ROSALEE/simba JOB#: [id number] / [id number]
--- NOTE | 2018-05-05 01:38 | PN ---
DATE: 05/03/2018 PSYCHIATRIC PROGRESS NOTE This is a late entry for 05/03/2018, covers elements not covered in my initial note. SUBJECTIVE: I met with the patient in the evening. The patient slept 6-3/4 hours previous night. Remains quite obsessive, ruminative, repetitive again due to his memory deficits. REVIEW OF SYSTEMS: Ambulation impaired with walker. No CV, , pulmonary, eye system symptoms on review. He has received Zyprexa p.r.n. at 1540 due to anxiety and paranoia. MENTAL STATUS EXAM: Oriented to himself. Insight, judgment, recent and remote memory, attention, concentration, fund of knowledge poor, consistent with his diagnosis mentioned in my initial note including UTI. PLAN: No change from initial note. MAN Beverly CONTI MD DR: ROSALEE/simba JOB#: [id number] / [id number]
[2018-05-05 06:21] VITALS: BP 134/69
[2018-05-05] MEDS: MEMANTINE 10 MG TABLET. PO SCH ×2 (07:50→20:13)
[2018-05-05] MEDS: busPIRone 10 MG TABLET. PO SCH ×2 (07:50→16:41)
[2018-05-05] MEDS: ASPIRIN ENTERIC COATED 81 MG TABLET.DR. PO SCH (07:50)
[2018-05-05] MEDS: FINASTERIDE 5 MG TABLET PO SCH (07:50)
[2018-05-05] MEDS: LACTOBACILLUS RHAMNOSUS GG 1 CAPSULE. PO SCH ×2 (07:50→20:13)
[2018-05-05] MEDS: MULTIVITAMIN I-VITE TABLET. PO SCH ×2 (07:50→20:13)
[2018-05-05] MEDS: SMZ/TMP 800/160MG TABLET. PO SCH ×2 (07:51→20:13)
[2018-05-05] MEDS: FLUTICASONE 50MCG/NASAL SPRAY 16GM BOTTLE. NS SCH (07:51)
[2018-05-05] MEDS: TAMSULOSIN 0.4 MG CAP.ER.24H. PO SCH (07:51)
[2018-05-05] MEDS: CALCIUM CARB/VIT D3 500/200 TABLET PO SCH (07:51)
[2018-05-05] MEDS: LISINOPRIL 20 MG TABLET PO SCH (07:53)
[2018-05-05 16:48] VITALS: BP 131/61
[2018-05-05] MEDS: DONEPEZIL HCL 10 MG TABLET PO SCH (20:13)
[2018-05-05] MEDS: rOPINIRole 1 MG TABLET. PO SCH (20:13)
[2018-05-05] MEDS: MIRTAZAPINE 7.5 MG TABLET. PO SCH (20:13)
[2018-05-05] MEDS: ATORVASTATIN CALCIUM 10 MG TABLET. PO SCH (20:14)
--- NOTE | 2018-05-05 20:54 | PDOC ---
Exam Note: Fredi Note: Please also refer to the separate dictated note~for this date of service dictated separately.~Patient seen individually. Discussed the patient with Nursing staff reviewed the chart.~Reviewed interim history and current functioning. Reviewed vital signs,~Labs/ Radiology~and current medications noted below. Continue current treatment with the changes noted in the dictated addendum note Assessment: Vital Signs: Vital Signs Date Time Temp Pulse Resp B/P (MAP) Pulse Ox O2 Delivery O2 Flow Rate FiO2 05/05/18 16:48 98.2 89 20 131/61 (84) 92 I&O Intake and Output 05/05/18 07:00 Intake Total 960 ml Balance 960 ml Intake Oral 960 ml Current Medications: Meds: Current Medications Multi-Ingredient Ointment (Analgesic [place]) 1 lulu PRN QID PRN TP MUSCLE PAIN; Start 04/22/18 at 21:00 Al Hydroxide/Mg Hydroxide (Mylanta Plus Xs) 15 ml PRN AFTMEALHC PRN PO DYSPEPSIA; Start 04/22/18 at 21:00 Magnesium Hydroxide (Milk Of Magnesia) 2,400 mg PRN QHS PRN PO CONSTIPATION; Start 04/22/18 at 21:00 Mirtazapine (Remeron) 7.5 mg HS PO Last administered on 05/05/18at 20:13; Start 04/22/18 at 21:00 Buspirone HCl (Buspar) 15 mg DAILY PO Last administered on 04/27/18at 08:34; Start 04/23/18 at 09:00; Stop 04/27/18 at 18:13; Status DC Donepezil HCl (Aricept) 10 mg QHS PO Last administered on 05/05/18at 20:13; Start 04/22/18 at 21:00 Memantine (Namenda) 10 mg BID PO Last administered on 05/05/18at 20:13; Start at 21:00 Trazodone HCl (Desyrel) 50 mg PRN QHS PRN PO INSOMNIA Last administered on 04/24at 20:13; Start 04/22/18 at 21:15 Non-Formulary Medication (Pimavanserin Tartrate (Nuplazid)) 34 mg DAILY PO ; Start 04/23/18 at 09:00; Stop 04/23/18 at 09:00; Status DC Acetaminophen (Tylenol) 650 mg PRN Q4HRS PRN PO PAIN / TEMP; Start 04/22/18 at 21:15 Lisinopril (Prinivil) 20 mg DAILY PO Last administered on 05/05/18 07:53; Start 04/23/18 at 09:00 Tamsulosin HCl (Flomax) 0.4 mg DAILY PO Last administered on 05/05/18 07:51; Start 04/23/18 at 09:00 Aspirin (Aspirin Enteric Coated) 81 mg DAILYWBKFT PO Last administered on 07:50; Start 04/23/18 at 08:00 Atorvastatin Calcium (Lipitor) 10 mg QHS PO Last administered on 05/05/18 20:14 ; Start 04/22/18 at 21:00 Calcium/Vitamin D (Oscal D 500mg/ 200uts) 1 tab DAILY PO Last administered on 07:51; Start 04/23/18 at 09:00 Finasteride (Proscar) 5 mg DAILY PO Last administered on 05/05/18 07:50; Start 04/23/18 at 09:00 Fluticasone Propionate (Flonase) 1 spray DAILY NS Last administered on 07:51; Start 04/23/18 at 09:00 Multivitamins/ Minerals (I-Liya) 1 tab QHS PO Last administered on 05/05/18 20: 13; Start 04/23/18 at 09:00 Multivitamins/ Minerals (I-Liya) 2 tab DAILY PO Last administered on 05/05/18 07:50; Start 04/23/18 at 09:00 Ropinirole HCl (Requip) 1 mg HS PO Last administered on 05/05/18 20:13; Start 04/22/18 at 21:00 Vitamin D (Vitamin D3) 50,000 unit WEEKLY PO Last administered on 04/30/18 09: 56; Start 04/23/18 at 16:00 Olanzapine (ZyPREXA ZYDIS) 2.5 mg PRN Q2HR PRN PO PSYCHOSIS Last administered on 05/03/18 15:38; Start 04/23/18 at 21:45 Fluvoxamine Maleate (Luvox) 25 mg HS PO Last administered on 04/26/18at 19:57; Start 04/24/18 at 21:00; Stop 04/26/18 at 23:58; Status DC Sodium Chloride 500 ml @ 0 mls/hr 1X ONCE IV ; Start 04/24/18 at 22:30; Stop at 02:57; Status DC Sodium Chloride 1,000 ml @ 75 mls/hr [id number] IV Last administered on at 23:04; Start 04/24/18 at 23:00; Stop 04/25/18 at 12:31; Status DC Sodium Chloride 1,000 ml @ 1,000 mls/hr 1X ONCE IV Last administered on at 03:04; Start 04/25/18 at 03:00; Stop 04/25/18 at 03:59; Status DC Fluvoxamine Maleate (Luvox) 50 mg QHS PO Last administered on 05/01/18at 19:54; Start 04/27/18 at 21:00; Stop 05/02/18 at 18:10; Status DC Buspirone HCl (Buspar) 10 mg DAILY@0900,1700 PO Last administered on 05/05/18at 16:41; Start 04/28/18 at 09:00 Trimethoprim/ Sulfamethoxazole (Bactrim Ds) 1 tab BID PO Last administered on at 20:13; Start 04/30/18 at 21:00; Stop 05/08/18 at 16:00 Lactobacillus Rhamnosus (Culturelle) 1 cap BID PO Last administered on at 20:13; Start 04/30/18 at 21:00 Fluvoxamine Maleate (Luvox) 75 mg DAILY PO ; Start 05/03/18 at 09:00; Stop at 09:00; Status DC Fluvoxamine Maleate (Luvox) 75 mg DAILY PO ; Start 05/02/18 at 20:30; Stop at 20:30; Status DC Fluvoxamine Maleate (Luvox) 75 mg QHS PO Last administered on 05/05/18at 20:14; Start 05/02/18 at 21:00 Active Scripts Active Reported Acetaminophen 325 Mg Tablet 650 Mg PO PRN Q4HRS PRN Aspirin Ec (Aspirin) 81 Mg Tablet.dr 81 Mg PO DAILY Atorvastatin Calcium 10 Mg Tablet 10 Mg PO QHS Buspirone Hcl 15 Mg Tablet 15 Mg PO DAILY Calcium + Vitamin D Tablet (Calcium Carbonate/Vitamin D3) 1 Each Tablet 1 Tab PO DAILY Donepezil Hcl 10 Mg Tablet 10 Mg PO HS Finasteride 5 Mg Tablet 5 Mg PO DAILY Flonase Allergy Relief (Fluticasone Propionate) 9.9 Ml [place].susp 1 Sprays NS DAILY Lisinopril 20 Mg Tablet 20 Mg PO DAILY Namenda Xr (Memantine Hcl) 28 Mg Cap.spr.24 28 Mg PO DAILY Mirtazapine 7.5 Mg Tablet 7.5 Mg PO HS Owrqu-Iwvjlfy-Fuihdjjs Tablet (Multivit-Min/Iron Fum/Folic AC) 1 Each Tablet 1 Tab PO HS Pnonh-Pxonoxv-Qupxfgfd Tablet (Multivit-Min/Iron Fum/Folic AC) 1 Each Tablet 2 Tab PO DAILY Seroquel (Quetiapine Fumarate) 25 Mg Tablet 12.5 Mg PO PRN PRN Requip (Ropinirole Hcl) 1 Mg Tablet 1 Mg PO HS Tamsulosin Hcl 0.4 Mg Cap.er.24h 0.4 Mg PO DAILY Trazodone Hcl 50 Mg Tablet 50 Mg PO PRN QHS PRN I have reviewed the current psychotropics carefully including drug interactions. Risk benefit ratio favors no change other than as noted in my dictated progress note. Diagnosis: Problems: (1) Anxiety disorder (2) Dementia in Alzheimer's disease with delusions (3) Dementia in Alzheimer's disease with depression (4) Dementia, vascular, with delusions (5) Dementia, vascular, with depression (6) Impulse control disorder ROSALIE CONTI MD May 05, 2018 20:54
--- NOTE | 2018-05-05 23:09 | PN ---
DATE: 05/04/2018 This is a late entry, 05/04/2018, covers the elements not covered in my initial note, 05/04/2018. SUBJECTIVE: I met with the patient in the evening. The patient slept 7-3/4 hours the previous evening. He remains somewhat repetitive forgetful and was following me around the unit having forgotten that had met with him extensively and individually about 15 minutes earlier. REVIEW OF SYSTEMS: Ambulation impaired with a walker. No CV, , pulmonary, eye system symptoms on review. Reliability poor. MENTAL STATUS EXAM: Oriented to himself. Insight, judgment, recent and remote memory, attention, concentration, fund of knowledge poor, consistent with his diagnosis as mentioned in my initial note. PLAN: No change from initial note, may need to increase Luvox depending on how he does with his obsessive rumination within the context of his dementia. MAN Beverly CONTI MD DR: ROSALEE/simba JOB#: [id number] / [id number]
[2018-05-06 06:13] VITALS: BP 128/71
[2018-05-06] MEDS: ASPIRIN ENTERIC COATED 81 MG TABLET.DR. PO SCH (08:55)
[2018-05-06] MEDS: FLUTICASONE 50MCG/NASAL SPRAY 16GM BOTTLE. NS SCH (08:56)
[2018-05-06] MEDS: busPIRone 10 MG TABLET. PO SCH ×2 (08:56→17:22)
[2018-05-06] MEDS: SMZ/TMP 800/160MG TABLET. PO SCH ×2 (08:56→21:08)
[2018-05-06] MEDS: TAMSULOSIN 0.4 MG CAP.ER.24H. PO SCH (08:56)
[2018-05-06] MEDS: LACTOBACILLUS RHAMNOSUS GG 1 CAPSULE. PO SCH ×2 (08:56→21:08)
[2018-05-06] MEDS: CALCIUM CARB/VIT D3 500/200 TABLET PO SCH (08:58)
[2018-05-06] MEDS: MEMANTINE 10 MG TABLET. PO SCH ×2 (08:58→21:10)
[2018-05-06] MEDS: MULTIVITAMIN I-VITE TABLET. PO SCH ×2 (08:58→21:08)
[2018-05-06] MEDS: FINASTERIDE 5 MG TABLET PO SCH (08:59)
[2018-05-06] MEDS: LISINOPRIL 20 MG TABLET PO SCH (08:59)
[2018-05-06 16:29] VITALS: BP 158/77
--- NOTE | 2018-05-06 20:56 | PDOC ---
Exam Note: Fredi Note: Please also refer to the separate dictated note~for this date of service dictated separately.~Patient seen individually. Discussed the patient with Nursing staff reviewed the chart.~Reviewed interim history and current functioning. Reviewed vital signs,~Labs/ Radiology~and current medications noted below. Continue current treatment with the changes noted in the dictated addendum note Assessment: Vital Signs: Vital Signs Date Time Temp Pulse Resp B/P (MAP) Pulse Ox O2 Delivery O2 Flow Rate FiO2 05/06/18 16:29 97.6 66 17 158/77 (104) 97 Room Air I&O Intake and Output 05/06/18 07:00 Intake Total 1200 ml Balance 1200 ml Intake Oral 1200 ml # Bowel Movements 1 Current Medications: Meds: Current Medications Multi-Ingredient Ointment (Analgesic [place]) 1 lulu PRN QID PRN TP MUSCLE PAIN; Start 04/22/18 at 21:00 Al Hydroxide/Mg Hydroxide (Mylanta Plus Xs) 15 ml PRN AFTMEALHC PRN PO DYSPEPSIA; Start 04/22/18 at 21:00 Magnesium Hydroxide (Milk Of Magnesia) 2,400 mg PRN QHS PRN PO CONSTIPATION; Start 04/22/18 at 21:00 Mirtazapine (Remeron) 7.5 mg HS PO Last administered on 05/05/18at 20:13; Start 04/22/18 at 21:00 Buspirone HCl (Buspar) 15 mg DAILY PO Last administered on 04/27/18at 08:34; Start 04/23/18 at 09:00; Stop 04/27/18 at 18:13; Status DC Donepezil HCl (Aricept) 10 mg QHS PO Last administered on 05/05/18at 20:13; Start 04/22/18 at 21:00 Memantine (Namenda) 10 mg BID PO Last administered on 05/06/18at 08:58; Start at 21:00 Trazodone HCl (Desyrel) 50 mg PRN QHS PRN PO INSOMNIA Last administered on 04/24at 20:13; Start 04/22/18 at 21:15 Non-Formulary Medication (Pimavanserin Tartrate (Nuplazid)) 34 mg DAILY PO ; Start 04/23/18 at 09:00; Stop 04/23/18 at 09:00; Status DC Acetaminophen (Tylenol) 650 mg PRN Q4HRS PRN PO PAIN / TEMP; Start 04/22/18 at 21:15 Lisinopril (Prinivil) 20 mg DAILY PO Last administered on 05/06/18 08:59; Start 04/23/18 at 09:00 Tamsulosin HCl (Flomax) 0.4 mg DAILY PO Last administered on 05/06/18 08:56; Start 04/23/18 at 09:00 Aspirin (Aspirin Enteric Coated) 81 mg DAILYWBKFT PO Last administered on 08:55; Start 04/23/18 at 08:00 Atorvastatin Calcium (Lipitor) 10 mg QHS PO Last administered on 05/05/18 20:14 ; Start 04/22/18 at 21:00 Calcium/Vitamin D (Oscal D 500mg/ 200uts) 1 tab DAILY PO Last administered on 08:58; Start 04/23/18 at 09:00 Finasteride (Proscar) 5 mg DAILY PO Last administered on 05/06/18 08:59; Start 04/23/18 at 09:00 Fluticasone Propionate (Flonase) 1 spray DAILY NS Last administered on 08:56; Start 04/23/18 at 09:00 Multivitamins/ Minerals (I-Liya) 1 tab QHS PO Last administered on 05/05/18 20: 13; Start 04/23/18 at 09:00 Multivitamins/ Minerals (I-Liya) 2 tab DAILY PO Last administered on 05/06/18 08:58; Start 04/23/18 at 09:00 Ropinirole HCl (Requip) 1 mg HS PO Last administered on 05/05/18 20:13; Start 04/22/18 at 21:00 Vitamin D (Vitamin D3) 50,000 unit WEEKLY PO Last administered on 04/30/18 09: 56; Start 04/23/18 at 16:00 Olanzapine (ZyPREXA ZYDIS) 2.5 mg PRN Q2HR PRN PO PSYCHOSIS Last administered on 05/03/18 15:38; Start 04/23/18 at 21:45 Fluvoxamine Maleate (Luvox) 25 mg HS PO Last administered on 04/26/18at 19:57; Start 04/24/18 at 21:00; Stop 04/26/18 at 23:58; Status DC Sodium Chloride 500 ml @ 0 mls/hr 1X ONCE IV ; Start 04/24/18 at 22:30; Stop at 02:57; Status DC Sodium Chloride 1,000 ml @ 75 mls/hr [id number] IV Last administered on at 23:04; Start 04/24/18 at 23:00; Stop 04/25/18 at 12:31; Status DC Sodium Chloride 1,000 ml @ 1,000 mls/hr 1X ONCE IV Last administered on at 03:04; Start 04/25/18 at 03:00; Stop 04/25/18 at 03:59; Status DC Fluvoxamine Maleate (Luvox) 50 mg QHS PO Last administered on 05/01/18at 19:54; Start 04/27/18 at 21:00; Stop 05/02/18 at 18:10; Status DC Buspirone HCl (Buspar) 10 mg DAILY@0900,1700 PO Last administered on 05/06/18at 17:22; Start 04/28/18 at 09:00 Trimethoprim/ Sulfamethoxazole (Bactrim Ds) 1 tab BID PO Last administered on at 08:56; Start 04/30/18 at 21:00; Stop 05/08/18 at 16:00 Lactobacillus Rhamnosus (Culturelle) 1 cap BID PO Last administered on at 08:56; Start 04/30/18 at 21:00 Fluvoxamine Maleate (Luvox) 75 mg DAILY PO ; Start 05/03/18 at 09:00; Stop at 09:00; Status DC Fluvoxamine Maleate (Luvox) 75 mg DAILY PO ; Start 05/02/18 at 20:30; Stop at 20:30; Status DC Fluvoxamine Maleate (Luvox) 75 mg QHS PO Last administered on 05/05/18at 20:14; Start 05/02/18 at 21:00 Active Scripts Active Reported Acetaminophen 325 Mg Tablet 650 Mg PO PRN Q4HRS PRN Aspirin Ec (Aspirin) 81 Mg Tablet.dr 81 Mg PO DAILY Atorvastatin Calcium 10 Mg Tablet 10 Mg PO QHS Buspirone Hcl 15 Mg Tablet 15 Mg PO DAILY Calcium + Vitamin D Tablet (Calcium Carbonate/Vitamin D3) 1 Each Tablet 1 Tab PO DAILY Donepezil Hcl 10 Mg Tablet 10 Mg PO HS Finasteride 5 Mg Tablet 5 Mg PO DAILY Flonase Allergy Relief (Fluticasone Propionate) 9.9 Ml [place].susp 1 Sprays NS DAILY Lisinopril 20 Mg Tablet 20 Mg PO DAILY Namenda Xr (Memantine Hcl) 28 Mg Cap.spr.24 28 Mg PO DAILY Mirtazapine 7.5 Mg Tablet 7.5 Mg PO HS Txysn-Gjjqzcu-Gwyecdmp Tablet (Multivit-Min/Iron Fum/Folic AC) 1 Each Tablet 1 Tab PO HS Xodef-Nnojwte-Jflqkasl Tablet (Multivit-Min/Iron Fum/Folic AC) 1 Each Tablet 2 Tab PO DAILY Seroquel (Quetiapine Fumarate) 25 Mg Tablet 12.5 Mg PO PRN PRN Requip (Ropinirole Hcl) 1 Mg Tablet 1 Mg PO HS Tamsulosin Hcl 0.4 Mg Cap.er.24h 0.4 Mg PO DAILY Trazodone Hcl 50 Mg Tablet 50 Mg PO PRN QHS PRN I have reviewed the current psychotropics carefully including drug interactions. Risk benefit ratio favors no change other than as noted in my dictated progress note. Diagnosis: Problems: (1) Anxiety disorder (2) Dementia in Alzheimer's disease with delusions (3) Dementia in Alzheimer's disease with depression (4) Dementia, vascular, with delusions (5) Dementia, vascular, with depression (6) Impulse control disorder ROSALIE CONTI MD May 06, 2018 20:56
[2018-05-06] MEDS: DONEPEZIL HCL 10 MG TABLET PO SCH (21:08)
[2018-05-06] MEDS: ATORVASTATIN CALCIUM 10 MG TABLET. PO SCH (21:08)
[2018-05-06] MEDS: MIRTAZAPINE 7.5 MG TABLET. PO SCH (21:10)
[2018-05-06] MEDS: rOPINIRole 1 MG TABLET. PO SCH (21:10)
[2018-05-07 06:53] VITALS: BP 138/71
[2018-05-07] MEDS: FLUTICASONE 50MCG/NASAL SPRAY 16GM BOTTLE. NS SCH (08:09)
[2018-05-07] MEDS: MULTIVITAMIN I-VITE TABLET. PO SCH ×2 (08:09→20:34)
[2018-05-07] MEDS: CALCIUM CARB/VIT D3 500/200 TABLET PO SCH (08:10)
[2018-05-07] MEDS: LACTOBACILLUS RHAMNOSUS GG 1 CAPSULE. PO SCH ×2 (08:10→20:34)
[2018-05-07] MEDS: LISINOPRIL 20 MG TABLET PO SCH (08:10)
[2018-05-07] MEDS: TAMSULOSIN 0.4 MG CAP.ER.24H. PO SCH (08:10)
[2018-05-07] MEDS: FINASTERIDE 5 MG TABLET PO SCH (08:10)
[2018-05-07] MEDS: busPIRone 10 MG TABLET. PO SCH ×2 (08:10→17:53)
[2018-05-07] MEDS: CHOLECALCIFEROL (VITAMIN D3) 50,000 UNIT CAPSULE PO SCH (08:10)
[2018-05-07] MEDS: SMZ/TMP 800/160MG TABLET. PO SCH ×2 (08:11→20:34)
[2018-05-07] MEDS: MEMANTINE 10 MG TABLET. PO SCH ×2 (08:11→20:35)
[2018-05-07] MEDS: ASPIRIN ENTERIC COATED 81 MG TABLET.DR. PO SCH (08:11)
[2018-05-07 16:00] VITALS: BP 178/88
[2018-05-07] MEDS: DONEPEZIL HCL 10 MG TABLET PO SCH (20:33)
[2018-05-07] MEDS: ATORVASTATIN CALCIUM 10 MG TABLET. PO SCH (20:34)
[2018-05-07] MEDS: MIRTAZAPINE 7.5 MG TABLET. PO SCH (20:35)
[2018-05-07] MEDS: rOPINIRole 1 MG TABLET. PO SCH (20:35)
--- NOTE | 2018-05-07 20:46 | PDOC ---
Exam Note: Fredi Note: Please also refer to the separate dictated note~for this date of service dictated separately.~Patient seen individually. Discussed the patient with Nursing staff reviewed the chart.~Reviewed interim history and current functioning. Reviewed vital signs,~Labs/ Radiology~and current medications noted below. Continue current treatment with the changes noted in the dictated addendum note Assessment: Vital Signs: Vital Signs Date Time Temp Pulse Resp B/P (MAP) Pulse Ox O2 Delivery O2 Flow Rate FiO2 05/07/18 16:00 97.5 60 20 178/88 (118) 95 05/06/18 16:29 Room Air I&O Intake and Output 05/07/18 07:00 Intake Total 1200 ml Balance 1200 ml Intake Oral 1200 ml # Voids 1 Current Medications: Meds: Current Medications Multi-Ingredient Ointment (Analgesic [place]) 1 lulu PRN QID PRN TP MUSCLE PAIN; Start 04/22/18 at 21:00 Al Hydroxide/Mg Hydroxide (Mylanta Plus Xs) 15 ml PRN AFTMEALHC PRN PO DYSPEPSIA; Start 04/22/18 at 21:00 Magnesium Hydroxide (Milk Of Magnesia) 2,400 mg PRN QHS PRN PO CONSTIPATION; Start 04/22/18 at 21:00 Mirtazapine (Remeron) 7.5 mg HS PO Last administered on 05/07/18at 20:35; Start 04/22/18 at 21:00 Buspirone HCl (Buspar) 15 mg DAILY PO Last administered on 04/27/18at 08:34; Start 04/23/18 at 09:00; Stop 04/27/18 at 18:13; Status DC Donepezil HCl (Aricept) 10 mg QHS PO Last administered on 05/07/18at 20:33; Start 04/22/18 at 21:00 Memantine (Namenda) 10 mg BID PO Last administered on 05/07/18at 20:35; Start at 21:00 Trazodone HCl (Desyrel) 50 mg PRN QHS PRN PO INSOMNIA Last administered on 04/24at 20:13; Start 04/22/18 at 21:15 Non-Formulary Medication (Pimavanserin Tartrate (Nuplazid)) 34 mg DAILY PO ; Start 04/23/18 at 09:00; Stop 04/23/18 at 09:00; Status DC Acetaminophen (Tylenol) 650 mg PRN Q4HRS PRN PO PAIN / TEMP; Start 04/22/18 at 21:15 Lisinopril (Prinivil) 20 mg DAILY PO Last administered on 05/07/18 08:10; Start 04/23/18 at 09:00 Tamsulosin HCl (Flomax) 0.4 mg DAILY PO Last administered on 05/07/18 08:10; Start 04/23/18 at 09:00 Aspirin (Aspirin Enteric Coated) 81 mg DAILYWBKFT PO Last administered on 08:11; Start 04/23/18 at 08:00 Atorvastatin Calcium (Lipitor) 10 mg QHS PO Last administered on 05/07/18 20:34 ; Start 04/22/18 at 21:00 Calcium/Vitamin D (Oscal D 500mg/ 200uts) 1 tab DAILY PO Last administered on 08:10; Start 04/23/18 at 09:00 Finasteride (Proscar) 5 mg DAILY PO Last administered on 05/07/18 08:10; Start 04/23/18 at 09:00 Fluticasone Propionate (Flonase) 1 spray DAILY NS Last administered on 08:09; Start 04/23/18 at 09:00 Multivitamins/ Minerals (I-Liya) 1 tab QHS PO Last administered on 05/07/18 20: 34; Start 04/23/18 at 09:00 Multivitamins/ Minerals (I-Liya) 2 tab DAILY PO Last administered on 05/07/18 08:09; Start 04/23/18 at 09:00 Ropinirole HCl (Requip) 1 mg HS PO Last administered on 05/07/18 20:35; Start 04/22/18 at 21:00 Vitamin D (Vitamin D3) 50,000 unit WEEKLY PO Last administered on 05/07/18 08: 10; Start 04/23/18 at 16:00 Olanzapine (ZyPREXA ZYDIS) 2.5 mg PRN Q2HR PRN PO PSYCHOSIS Last administered on 05/03/18 15:38; Start 04/23/18 at 21:45 Fluvoxamine Maleate (Luvox) 25 mg HS PO Last administered on 04/26/18at 19:57; Start 04/24/18 at 21:00; Stop 04/26/18 at 23:58; Status DC Sodium Chloride 500 ml @ 0 mls/hr 1X ONCE IV ; Start 04/24/18 at 22:30; Stop at 02:57; Status DC Sodium Chloride 1,000 ml @ 75 mls/hr [id number] IV Last administered on at 23:04; Start 04/24/18 at 23:00; Stop 04/25/18 at 12:31; Status DC Sodium Chloride 1,000 ml @ 1,000 mls/hr 1X ONCE IV Last administered on at 03:04; Start 04/25/18 at 03:00; Stop 04/25/18 at 03:59; Status DC Fluvoxamine Maleate (Luvox) 50 mg QHS PO Last administered on 05/01/18at 19:54; Start 04/27/18 at 21:00; Stop 05/02/18 at 18:10; Status DC Buspirone HCl (Buspar) 10 mg DAILY@0900,1700 PO Last administered on 05/07/18at 17:53; Start 04/28/18 at 09:00 Trimethoprim/ Sulfamethoxazole (Bactrim Ds) 1 tab BID PO Last administered on at 20:34; Start 04/30/18 at 21:00; Stop 05/08/18 at 16:00 Lactobacillus Rhamnosus (Culturelle) 1 cap BID PO Last administered on at 20:34; Start 04/30/18 at 21:00 Fluvoxamine Maleate (Luvox) 75 mg DAILY PO ; Start 05/03/18 at 09:00; Stop at 09:00; Status DC Fluvoxamine Maleate (Luvox) 75 mg DAILY PO ; Start 05/02/18 at 20:30; Stop at 20:30; Status DC Fluvoxamine Maleate (Luvox) 75 mg QHS PO Last administered on 05/06/18at 21:10; Start 05/02/18 at 21:00; Stop 05/07/18 at 16:38; Status DC Fluvoxamine Maleate (Luvox) 100 mg QHS PO Last administered on 05/07/18at 20:36; Start 05/07/18 at 21:00 Active Scripts Active Reported Acetaminophen 325 Mg Tablet 650 Mg PO PRN Q4HRS PRN Aspirin Ec (Aspirin) 81 Mg Tablet.dr 81 Mg PO DAILY Atorvastatin Calcium 10 Mg Tablet 10 Mg PO QHS Buspirone Hcl 15 Mg Tablet 15 Mg PO DAILY Calcium + Vitamin D Tablet (Calcium Carbonate/Vitamin D3) 1 Each Tablet 1 Tab PO DAILY Donepezil Hcl 10 Mg Tablet 10 Mg PO HS Finasteride 5 Mg Tablet 5 Mg PO DAILY Flonase Allergy Relief (Fluticasone Propionate) 9.9 Ml [place].susp 1 Sprays NS DAILY Lisinopril 20 Mg Tablet 20 Mg PO DAILY Namenda Xr (Memantine Hcl) 28 Mg Cap.spr.24 28 Mg PO DAILY Mirtazapine 7.5 Mg Tablet 7.5 Mg PO HS Igkes-Jcmysne-Ikbjeawh Tablet (Multivit-Min/Iron Fum/Folic AC) 1 Each Tablet 1 Tab PO HS Lqpin-Gbgsxyi-Urhhfirg Tablet (Multivit-Min/Iron Fum/Folic AC) 1 Each Tablet 2 Tab PO DAILY Seroquel (Quetiapine Fumarate) 25 Mg Tablet 12.5 Mg PO PRN PRN Requip (Ropinirole Hcl) 1 Mg Tablet 1 Mg PO HS Tamsulosin Hcl 0.4 Mg Cap.er.24h 0.4 Mg PO DAILY Trazodone Hcl 50 Mg Tablet 50 Mg PO PRN QHS PRN I have reviewed the current psychotropics carefully including drug interactions. Risk benefit ratio favors no change other than as noted in my dictated progress note. Diagnosis: Problems: (1) Anxiety disorder (2) Dementia in Alzheimer's disease with delusions (3) Dementia in Alzheimer's disease with depression (4) Dementia, vascular, with delusions (5) Dementia, vascular, with depression (6) Impulse control disorder ROSALIE CONTI MD May 07, 2018 20:46
--- NOTE | 2018-05-07 22:46 | PN ---
DATE: 05/05/2018 This is a late entry for 05/05/2018 covers elements not covered in my initial note. SUBJECTIVE: I met with the patient in the evening. The patient slept 8 hours previous evening, has been doing a little better, less anxious, obsessive, though the family believes he is not very different from admission. He was talking about wanting to go home, oblivious of his surroundings, does attend groups. REVIEW OF SYSTEMS: Ambulation impaired with walker. No CV, , pulmonary, eye system symptoms on review. MENTAL STATUS EXAM: Oriented to himself. Insight, judgment, recent and remote memory, attention, concentration, fund of knowledge poor, consistent with his diagnosis mentioned in my initial note. The patient followed me around the unit, extremely forgetful that he met with me several times, asking the same questions about discharge plans and about his memory problems. LABORATORY DATA: Reviewed. IMPRESSION: Unchanged from initial note. PLAN: No change from initial note. ROSALIE CONTI MD DR: ROSALEE/simba JOB#: [id number] / [id number]
--- NOTE | 2018-05-07 22:47 | PN ---
DATE: 05/06/2018 This late entry 05/06/2018 covers elements not covered in my initial note. SUBJECTIVE: I met with the patient in the evening. The patient was also staffed at a treatment team meeting with the entire team morning of 05/06/2018. Reviewed his progress at length, diagnosis, discharge, aftercare plans, current medications. The patient slept 6 hours previous evening. REVIEW OF SYSTEMS: Ambulation impaired with walker. No CV, , pulmonary, eye, ENT system symptoms on review. Reliability poor. MENTAL STATUS EXAM: Oriented to himself. Insight, judgment, recent and remote memory, attention, concentration, fund of knowledge poor, consistent with his diagnosis mentioned in my initial note. PLAN: No change from initial note. MAN Beverly CONTI MD DR: ROSALEE/simba JOB#: [id number] / [id number]
[2018-05-08 06:03] VITALS: BP 154/73
[2018-05-08] MEDS: ASPIRIN ENTERIC COATED 81 MG TABLET.DR. PO SCH (08:27)
[2018-05-08] MEDS: SMZ/TMP 800/160MG TABLET. PO SCH (08:28)
[2018-05-08] MEDS: FLUTICASONE 50MCG/NASAL SPRAY 16GM BOTTLE. NS SCH (08:28)
[2018-05-08] MEDS: TAMSULOSIN 0.4 MG CAP.ER.24H. PO SCH (08:28)
[2018-05-08] MEDS: LACTOBACILLUS RHAMNOSUS GG 1 CAPSULE. PO SCH ×2 (08:28→20:34)
[2018-05-08] MEDS: busPIRone 10 MG TABLET. PO SCH ×2 (08:28→17:03)
[2018-05-08] MEDS: MEMANTINE 10 MG TABLET. PO SCH ×2 (08:29→20:34)
[2018-05-08] MEDS: CALCIUM CARB/VIT D3 500/200 TABLET PO SCH (08:29)
[2018-05-08] MEDS: MULTIVITAMIN I-VITE TABLET. PO SCH ×2 (08:29→20:33)
[2018-05-08] MEDS: LISINOPRIL 20 MG TABLET PO SCH (08:37)
[2018-05-08] MEDS: FINASTERIDE 5 MG TABLET PO SCH (08:37)
[2018-05-08 09:00] LABS: BASO % 1 % (0-3); EOS # 0.3 x10^3/uL (0.0-0.7); EOS % 5 % (0-3); HEMATOCRIT 40.1 % (39.0-53.0); HEMOGLOBIN 13.4 g/dL (13.0-17.5); LYMPH # 1.2 x10^3/uL (1.0-4.8); LYMPH % 23 % (24-48); MEAN CORPUSCULAR HEMOGLOBIN 31 pg (25-35); MEAN CORPUSCULAR HGB CONC 33 g/dL (31-37); MEAN CORPUSCULAR VOLUME 91 fL (79-100); MONO # 0.5 x10^3/uL (0.0-1.1); MONO % 10 % (0-9); NEUT # 3.2 x10^3uL (1.8-7.7); NEUT % 62 % (31-73); PLATELET COUNT 149 x10^3/uL (140-400); RED BLOOD COUNT 4.39 x10^6/uL (4.30-5.70); RED CELL DISTRIBUTION WIDTH 14.5 % (11.5-14.5); WHITE BLOOD COUNT 5.3 x10^3/uL (4.0-11.0)
[2018-05-08 09:13] LABS: ALBUMIN 3.4 g/dL (3.4-5.0); CALCIUM 8.3 mg/dL (8.5-10.1); CREATININE 1.2 mg/dL (0.7-1.3); GFR 57.7; POTASSIUM 4.7 mmol/L (3.5-5.1); TOTAL BILIRUBIN 0.4 mg/dL (0.2-1.0); TOTAL PROTEIN 6.9 g/dL (6.4-8.2)
[2018-05-08 16:17] VITALS: BP 153/61
[2018-05-08] MEDS: DONEPEZIL HCL 10 MG TABLET PO SCH (20:34)
[2018-05-08] MEDS: MIRTAZAPINE 7.5 MG TABLET. PO SCH (20:34)
[2018-05-08] MEDS: ATORVASTATIN CALCIUM 10 MG TABLET. PO SCH (20:34)
[2018-05-08] MEDS: rOPINIRole 1 MG TABLET. PO SCH (20:34)
--- NOTE | 2018-05-08 23:21 | PDOC ---
Exam Note: Fredi Note: Please also refer to the separate dictated note~for this date of service dictated separately.~Patient seen individually. Discussed the patient with Nursing staff reviewed the chart.~Reviewed interim history and current functioning. Reviewed vital signs,~Labs/ Radiology~and current medications noted below. Continue current treatment with the changes noted in the dictated addendum note Assessment: Vital Signs: Vital Signs Date Time Temp Pulse Resp B/P (MAP) Pulse Ox O2 Delivery O2 Flow Rate FiO2 05/08/18 16:17 97.2 74 20 153/61 (91) 97 05/08/18 06:03 Room Air I&O Intake and Output 05/08/18 07:00 Intake Total 1200 ml Balance 1200 ml Intake Oral 1200 ml Labs: Laboratory Tests Test 05/08/18 08:45 White Blood Count 5.3 x10^3/uL (4.0-11.0) Red Blood Count 4.39 x10^6/uL (4.30-5.70) Hemoglobin 13.4 g/dL (13.0-17.5) Hematocrit 40.1 % (39.0-53.0) Mean Corpuscular Volume 91 fL (79-100) Mean Corpuscular Hemoglobin 31 pg (25-35) Mean Corpuscular Hemoglobin Concent 33 g/dL (31-37) Red Cell Distribution Width 14.5 % (11.5-14.5) Platelet Count 149 x10^3/uL (140-400) Neutrophils (%) (Auto) 62 % (31-73) Lymphocytes (%) (Auto) 23 % (24-48) L Monocytes (%) (Auto) 10 % (0-9) H Eosinophils (%) (Auto) 5 % (0-3) H Basophils (%) (Auto) 1 % (0-3) Neutrophils # (Auto) 3.2 x10^3uL (1.8-7.7) Lymphocytes # (Auto) 1.2 x10^3/uL (1.0-4.8) Monocytes # (Auto) 0.5 x10^3/uL (0.0-1.1) Eosinophils # (Auto) 0.3 x10^3/uL (0.0-0.7) Basophils # (Auto) 0.0 x10^3/uL (0.0-0.2) Sodium Level 136 mmol/L (136-145) Potassium Level 4.7 mmol/L (3.5-5.1) Chloride Level 102 mmol/L (98-107) Carbon Dioxide Level 30 mmol/L (21-32) Anion Gap 4 (6-14) L Blood Urea Nitrogen 17 mg/dL (8-26) Creatinine 1.2 mg/dL (0.7-1.3) Estimated GFR (Cockcroft-Gault) 57.7 BUN/Creatinine Ratio 14 (6-20) Glucose Level 119 mg/dL (70-99) H Calcium Level 8.3 mg/dL (8.5-10.1) L Total Bilirubin 0.4 mg/dL (0.2-1.0) Aspartate Amino Transferase (AST) 34 U/L (15-37) Alanine Aminotransferase (ALT) 61 U/L (16-63) Alkaline Phosphatase 128 U/L (46-116) H Total Protein 6.9 g/dL (6.4-8.2) Albumin 3.4 g/dL (3.4-5.0) Albumin/Globulin Ratio 1.0 (1.0-1.7) Current Medications: Meds: Current Medications Multi-Ingredient Ointment (Analgesic [place]) 1 lulu PRN QID PRN TP MUSCLE PAIN; Start 04/22/18 at 21:00 Al Hydroxide/Mg Hydroxide (Mylanta Plus Xs) 15 ml PRN AFTMEALHC PRN PO DYSPEPSIA; Start 04/22/18 at 21:00 Magnesium Hydroxide (Milk Of Magnesia) 2,400 mg PRN QHS PRN PO CONSTIPATION; Start 04/22/18 at 21:00 Mirtazapine (Remeron) 7.5 mg HS PO Last administered on 05/08/18at 20:34; Start 04/22/18 at 21:00 Buspirone HCl (Buspar) 15 mg DAILY PO Last administered on 04/27/18at 08:34; Start 04/23/18 at 09:00; Stop 04/27/18 at 18:13; Status DC Donepezil HCl (Aricept) 10 mg QHS PO Last administered on 05/08/18 20:34; Start 04/22/18 at 21:00 Memantine (Namenda) 10 mg BID PO Last administered on 05/08/18 20:34; Start at 21:00 Trazodone HCl (Desyrel) 50 mg PRN QHS PRN PO INSOMNIA Last administered on 04/24 20:13; Start 04/22/18 at 21:15 Non-Formulary Medication (Pimavanserin Tartrate (Nuplazid)) 34 mg DAILY PO ; Start 04/23/18 at 09:00; Stop 04/23/18 at 09:00; Status DC Acetaminophen (Tylenol) 650 mg PRN Q4HRS PRN PO PAIN / TEMP; Start 04/22/18 at 21:15 Lisinopril (Prinivil) 20 mg DAILY PO Last administered on 05/08/18 08:37; Start 04/23/18 at 09:00 Tamsulosin HCl (Flomax) 0.4 mg DAILY PO Last administered on 05/08/18 08:28; Start 04/23/18 at 09:00 Aspirin (Aspirin Enteric Coated) 81 mg DAILYWBKFT PO Last administered on 08:27; Start 04/23/18 at 08:00 Atorvastatin Calcium (Lipitor) 10 mg QHS PO Last administered on 05/08/18 20:34 ; Start 04/22/18 at 21:00 Calcium/Vitamin D (Oscal D 500mg/ 200uts) 1 tab DAILY PO Last administered on 08:29; Start 04/23/18 at 09:00 Finasteride (Proscar) 5 mg DAILY PO Last administered on 05/08/18 08:37; Start 04/23/18 at 09:00 Fluticasone Propionate (Flonase) 1 spray DAILY NS Last administered on 08:09; Start 04/23/18 at 09:00 Multivitamins/ Minerals (I-Liya) 1 tab QHS PO Last administered on 05/08/18 20: 33; Start 04/23/18 at 09:00 Multivitamins/ Minerals (I-Liya) 2 tab DAILY PO Last administered on 05/08/18 08:29; Start 04/23/18 at 09:00 Ropinirole HCl (Requip) 1 mg HS PO Last administered on 05/08/18 20:34; Start 04/22/18 at 21:00 Vitamin D (Vitamin D3) 50,000 unit WEEKLY PO Last administered on 05/07/18at 08: 10; Start 04/23/18 at 16:00 Olanzapine (ZyPREXA ZYDIS) 2.5 mg PRN Q2HR PRN PO PSYCHOSIS Last administered on 05/03/18at 15:38; Start 04/23/18 at 21:45 Fluvoxamine Maleate (Luvox) 25 mg HS PO Last administered on 04/26/18at 19:57; Start 04/24/18 at 21:00; Stop 04/26/18 at 23:58; Status DC Sodium Chloride 500 ml @ 0 mls/hr 1X ONCE IV ; Start 04/24/18 at 22:30; Stop at 02:57; Status DC Sodium Chloride 1,000 ml @ 75 mls/hr [id number] IV Last administered on at 23:04; Start 04/24/18 at 23:00; Stop 04/25/18 at 12:31; Status DC Sodium Chloride 1,000 ml @ 1,000 mls/hr 1X ONCE IV Last administered on at 03:04; Start 04/25/18 at 03:00; Stop 04/25/18 at 03:59; Status DC Fluvoxamine Maleate (Luvox) 50 mg QHS PO Last administered on 05/01/18at 19:54; Start 04/27/18 at 21:00; Stop 05/02/18 at 18:10; Status DC Buspirone HCl (Buspar) 10 mg DAILY@0900,1700 PO Last administered on 05/08/18at 17:03; Start 04/28/18 at 09:00 Trimethoprim/ Sulfamethoxazole (Bactrim Ds) 1 tab BID PO Last administered on at 08:28; Start 04/30/18 at 21:00; Stop 05/08/18 at 16:00; Status DC Lactobacillus Rhamnosus (Culturelle) 1 cap BID PO Last administered on at 20:34; Start 04/30/18 at 21:00 Fluvoxamine Maleate (Luvox) 75 mg DAILY PO ; Start 05/03/18 at 09:00; Stop at 09:00; Status DC Fluvoxamine Maleate (Luvox) 75 mg DAILY PO ; Start 05/02/18 at 20:30; Stop at 20:30; Status DC Fluvoxamine Maleate (Luvox) 75 mg QHS PO Last administered on 05/06/18at 21:10; Start 05/02/18 at 21:00; Stop 05/07/18 at 16:38; Status DC Fluvoxamine Maleate (Luvox) 100 mg QHS PO Last administered on 05/08/18at 20:34; Start 05/07/18 at 21:00 Active Scripts Active Reported Acetaminophen 325 Mg Tablet 650 Mg PO PRN Q4HRS PRN Aspirin Ec (Aspirin) 81 Mg Tablet.dr 81 Mg PO DAILY Atorvastatin Calcium 10 Mg Tablet 10 Mg PO QHS Buspirone Hcl 15 Mg Tablet 15 Mg PO DAILY Calcium + Vitamin D Tablet (Calcium Carbonate/Vitamin D3) 1 Each Tablet 1 Tab PO DAILY Donepezil Hcl 10 Mg Tablet 10 Mg PO HS Finasteride 5 Mg Tablet 5 Mg PO DAILY Flonase Allergy Relief (Fluticasone Propionate) 9.9 Ml [place].susp 1 Sprays NS DAILY Lisinopril 20 Mg Tablet 20 Mg PO DAILY Namenda Xr (Memantine Hcl) 28 Mg Cap.spr.24 28 Mg PO DAILY Mirtazapine 7.5 Mg Tablet 7.5 Mg PO HS Tgonw-Kkmmufn-Nqnclhax Tablet (Multivit-Min/Iron Fum/Folic AC) 1 Each Tablet 1 Tab PO HS Dghxv-Bdjzpjp-Quemyszh Tablet (Multivit-Min/Iron Fum/Folic AC) 1 Each Tablet 2 Tab PO DAILY Seroquel (Quetiapine Fumarate) 25 Mg Tablet 12.5 Mg PO PRN PRN Requip (Ropinirole Hcl) 1 Mg Tablet 1 Mg PO HS Tamsulosin Hcl 0.4 Mg Cap.er.24h 0.4 Mg PO DAILY Trazodone Hcl 50 Mg Tablet 50 Mg PO PRN QHS PRN I have reviewed the current psychotropics carefully including drug interactions. Risk benefit ratio favors no change other than as noted in my dictated progress note. Diagnosis: Problems: (1) Anxiety disorder (2) Dementia in Alzheimer's disease with delusions (3) Dementia in Alzheimer's disease with depression (4) Dementia, vascular, with delusions (5) Dementia, vascular, with depression (6) Impulse control disorder ROSALIE CONTI MD May 08, 2018 23:21
[2018-05-09 06:10] VITALS: BP 147/75
[2018-05-09] MEDS: TAMSULOSIN 0.4 MG CAP.ER.24H. PO SCH (08:09)
[2018-05-09] MEDS: FINASTERIDE 5 MG TABLET PO SCH (08:10)
[2018-05-09] MEDS: MEMANTINE 10 MG TABLET. PO SCH ×2 (08:10→20:21)
[2018-05-09] MEDS: ASPIRIN ENTERIC COATED 81 MG TABLET.DR. PO SCH (08:10)
[2018-05-09] MEDS: LACTOBACILLUS RHAMNOSUS GG 1 CAPSULE. PO SCH ×2 (08:10→20:21)
[2018-05-09] MEDS: LISINOPRIL 20 MG TABLET PO SCH (08:10)
[2018-05-09] MEDS: busPIRone 10 MG TABLET. PO SCH ×2 (08:11→17:15)
[2018-05-09] MEDS: CALCIUM CARB/VIT D3 500/200 TABLET PO SCH (08:11)
[2018-05-09] MEDS: MULTIVITAMIN I-VITE TABLET. PO SCH ×2 (08:11→20:20)
[2018-05-09] MEDS: FLUTICASONE 50MCG/NASAL SPRAY 16GM BOTTLE. NS SCH (08:13)
[2018-05-09 16:00] VITALS: BP 116/55
--- NOTE | 2018-05-09 18:04 | PN ---
DATE: 05/07/2018 PSYCHIATRIC PROGRESS NOTE This is a late entry 05/07/2018, covers elements not covered in my initial note. SUBJECTIVE: I met with the patient in the evening. The patient slept 7 hours previous night. He remains confused, forgetful, short-term memory is very poor and he keeps coming back and asking the same questions, following me around the unit as I went on rounds. Remains somewhat obsessed in this respect. REVIEW OF SYSTEMS: Ambulation impaired with walker. No CV, , pulmonary, eye system symptoms on review. MENTAL STATUS EXAM: Oriented to himself. Insight, judgment, recent and remote memory, attention, concentration, fund of knowledge poor, consistent with his diagnoses mentioned in my initial note. PLAN: Increase Luvox from 75 mg a day to 100 mg a day. Continue rest unchanged per initial note. MAN Beverly CONTI MD DR: ROSALEE/simba JOB#: [id number] / [id number]
[2018-05-09] MEDS: MIRTAZAPINE 7.5 MG TABLET. PO SCH (20:20)
[2018-05-09] MEDS: ATORVASTATIN CALCIUM 10 MG TABLET. PO SCH (20:21)
[2018-05-09] MEDS: DONEPEZIL HCL 10 MG TABLET PO SCH (20:21)
[2018-05-09] MEDS: rOPINIRole 1 MG TABLET. PO SCH (20:21)
--- NOTE | 2018-05-09 20:56 | PDOC ---
Exam Note: Fredi Note: Please also refer to the separate dictated note~for this date of service dictated separately.~Patient seen individually. Discussed the patient with Nursing staff reviewed the chart.~Reviewed interim history and current functioning. Reviewed vital signs,~Labs/ Radiology~and current medications noted below. Continue current treatment with the changes noted in the dictated addendum note Assessment: Vital Signs: Vital Signs Date Time Temp Pulse Resp B/P (MAP) Pulse Ox O2 Delivery O2 Flow Rate FiO2 05/09/18 16:00 98.1 63 20 116/55 (75) 94 05/09/18 06:10 Room Air I&O Intake and Output 05/09/18 07:00 Intake Total 960 ml Balance 960 ml Intake Oral 960 ml # Bowel Movements 1 Current Medications: Meds: Current Medications Multi-Ingredient Ointment (Analgesic [place]) 1 lulu PRN QID PRN TP MUSCLE PAIN; Start 04/22/18 at 21:00 Al Hydroxide/Mg Hydroxide (Mylanta Plus Xs) 15 ml PRN AFTMEALHC PRN PO DYSPEPSIA; Start 04/22/18 at 21:00 Magnesium Hydroxide (Milk Of Magnesia) 2,400 mg PRN QHS PRN PO CONSTIPATION; Start 04/22/18 at 21:00 Mirtazapine (Remeron) 7.5 mg HS PO Last administered on 05/09/18at 20:20; Start 04/22/18 at 21:00 Buspirone HCl (Buspar) 15 mg DAILY PO Last administered on 04/27/18at 08:34; Start 04/23/18 at 09:00; Stop 04/27/18 at 18:13; Status DC Donepezil HCl (Aricept) 10 mg QHS PO Last administered on 05/09/18at 20:21; Start 04/22/18 at 21:00 Memantine (Namenda) 10 mg BID PO Last administered on 05/09/18 20:21; Start at 21:00 Trazodone HCl (Desyrel) 50 mg PRN QHS PRN PO INSOMNIA Last administered on 04/24at 20:13; Start 04/22/18 at 21:15 Non-Formulary Medication (Pimavanserin Tartrate (Nuplazid)) 34 mg DAILY PO ; Start 04/23/18 at 09:00; Stop 04/23/18 at 09:00; Status DC Acetaminophen (Tylenol) 650 mg PRN Q4HRS PRN PO PAIN / TEMP; Start 04/22/18 at 21:15 Lisinopril (Prinivil) 20 mg DAILY PO Last administered on 05/09/18 08:10; Start 04/23/18 at 09:00 Tamsulosin HCl (Flomax) 0.4 mg DAILY PO Last administered on 05/09/18 08:09; Start 04/23/18 at 09:00 Aspirin (Aspirin Enteric Coated) 81 mg DAILYWBKFT PO Last administered on 08:10; Start 04/23/18 at 08:00 Atorvastatin Calcium (Lipitor) 10 mg QHS PO Last administered on 05/09/18 20:21 ; Start 04/22/18 at 21:00 Calcium/Vitamin D (Oscal D 500mg/ 200uts) 1 tab DAILY PO Last administered on 08:11; Start 04/23/18 at 09:00 Finasteride (Proscar) 5 mg DAILY PO Last administered on 05/09/18 08:10; Start 04/23/18 at 09:00 Fluticasone Propionate (Flonase) 1 spray DAILY NS Last administered on 08:13; Start 04/23/18 at 09:00 Multivitamins/ Minerals (I-Liya) 1 tab QHS PO Last administered on 05/09/18 20: 20; Start 04/23/18 at 09:00 Multivitamins/ Minerals (I-Liya) 2 tab DAILY PO Last administered on 05/09/18 08:11; Start 04/23/18 at 09:00 Ropinirole HCl (Requip) 1 mg HS PO Last administered on 05/09/18 20:21; Start 04/22/18 at 21:00 Vitamin D (Vitamin D3) 50,000 unit WEEKLY PO Last administered on 05/07/18 08: 10; Start 04/23/18 at 16:00 Olanzapine (ZyPREXA ZYDIS) 2.5 mg PRN Q2HR PRN PO PSYCHOSIS Last administered on 05/03/18at 15:38; Start 04/23/18 at 21:45 Fluvoxamine Maleate (Luvox) 25 mg HS PO Last administered on 04/26/18at 19:57; Start 04/24/18 at 21:00; Stop 04/26/18 at 23:58; Status DC Sodium Chloride 500 ml @ 0 mls/hr 1X ONCE IV ; Start 04/24/18 at 22:30; Stop at 02:57; Status DC Sodium Chloride 1,000 ml @ 75 mls/hr [id number] Last administered on at 23:04; Start 04/24/18 at 23:00; Stop 04/25/18 at 12:31; Status DC Sodium Chloride 1,000 ml @ 1,000 mls/hr 1X ONCE IV Last administered on at 03:04; Start 04/25/18 at 03:00; Stop 04/25/18 at 03:59; Status DC Fluvoxamine Maleate (Luvox) 50 mg QHS PO Last administered on 05/01/18at 19:54; Start 04/27/18 at 21:00; Stop 05/02/18 at 18:10; Status DC Buspirone HCl (Buspar) 10 mg DAILY@0900,1700 PO Last administered on 05/09/18at 17:15; Start 04/28/18 at 09:00 Trimethoprim/ Sulfamethoxazole (Bactrim Ds) 1 tab BID PO Last administered on at 08:28; Start 04/30/18 at 21:00; Stop 05/08/18 at 16:00; Status DC Lactobacillus Rhamnosus (Culturelle) 1 cap BID PO Last administered on at 20:21; Start 04/30/18 at 21:00 Fluvoxamine Maleate (Luvox) 75 mg DAILY PO ; Start 05/03/18 at 09:00; Stop at 09:00; Status DC Fluvoxamine Maleate (Luvox) 75 mg DAILY PO ; Start 05/02/18 at 20:30; Stop at 20:30; Status DC Fluvoxamine Maleate (Luvox) 75 mg QHS PO Last administered on 05/06/18at 21:10; Start 05/02/18 at 21:00; Stop 05/07/18 at 16:38; Status DC Fluvoxamine Maleate (Luvox) 100 mg QHS PO Last administered on 05/09/18at 20:21; Start 05/07/18 at 21:00 Active Scripts Active Reported Acetaminophen 325 Mg Tablet 650 Mg PO PRN Q4HRS PRN Aspirin Ec (Aspirin) 81 Mg Tablet.dr 81 Mg PO DAILY Atorvastatin Calcium 10 Mg Tablet 10 Mg PO QHS Buspirone Hcl 15 Mg Tablet 15 Mg PO DAILY Calcium + Vitamin D Tablet (Calcium Carbonate/Vitamin D3) 1 Each Tablet 1 Tab PO DAILY Donepezil Hcl 10 Mg Tablet 10 Mg PO HS Finasteride 5 Mg Tablet 5 Mg PO DAILY Flonase Allergy Relief (Fluticasone Propionate) 9.9 Ml [place].susp 1 Sprays NS DAILY Lisinopril 20 Mg Tablet 20 Mg PO DAILY Namenda Xr (Memantine Hcl) 28 Mg Cap.spr.24 28 Mg PO DAILY Mirtazapine 7.5 Mg Tablet 7.5 Mg PO HS Cntqi-Jdioaqi-Cxbfbxeu Tablet (Multivit-Min/Iron Fum/Folic AC) 1 Each Tablet 1 Tab PO HS Afwzj-Ummqqsx-Jnfdtasf Tablet (Multivit-Min/Iron Fum/Folic AC) 1 Each Tablet 2 Tab PO DAILY Seroquel (Quetiapine Fumarate) 25 Mg Tablet 12.5 Mg PO PRN PRN Requip (Ropinirole Hcl) 1 Mg Tablet 1 Mg PO HS Tamsulosin Hcl 0.4 Mg Cap.er.24h 0.4 Mg PO DAILY Trazodone Hcl 50 Mg Tablet 50 Mg PO PRN QHS PRN I have reviewed the current psychotropics carefully including drug interactions. Risk benefit ratio favors no change other than as noted in my dictated progress note. Diagnosis: Problems: (1) Anxiety disorder (2) Dementia in Alzheimer's disease with delusions (3) Dementia in Alzheimer's disease with depression (4) Dementia, vascular, with delusions (5) Dementia, vascular, with depression (6) Impulse control disorder ROSALIE CONTI MD May 09, 2018 20:56
[2018-05-10 06:28] VITALS: BP 171/90
[2018-05-10] MEDS: FLUTICASONE 50MCG/NASAL SPRAY 16GM BOTTLE. NS SCH (07:45)
[2018-05-10] MEDS: LACTOBACILLUS RHAMNOSUS GG 1 CAPSULE. PO SCH ×2 (07:46→19:44)
[2018-05-10] MEDS: CALCIUM CARB/VIT D3 500/200 TABLET PO SCH (07:46)
[2018-05-10] MEDS: TAMSULOSIN 0.4 MG CAP.ER.24H. PO SCH (07:46)
[2018-05-10] MEDS: MULTIVITAMIN I-VITE TABLET. PO SCH ×2 (07:46→19:44)
[2018-05-10] MEDS: LISINOPRIL 20 MG TABLET PO SCH (07:46)
[2018-05-10] MEDS: FINASTERIDE 5 MG TABLET PO SCH (07:46)
[2018-05-10] MEDS: ASPIRIN ENTERIC COATED 81 MG TABLET.DR. PO SCH (07:46)
[2018-05-10] MEDS: busPIRone 10 MG TABLET. PO SCH ×2 (07:46→16:21)
[2018-05-10] MEDS: MEMANTINE 10 MG TABLET. PO SCH ×2 (07:46→19:45)
[2018-05-10 15:54] VITALS: BP 166/68
[2018-05-10] MEDS: DONEPEZIL HCL 10 MG TABLET PO SCH (19:44)
[2018-05-10] MEDS: ATORVASTATIN CALCIUM 10 MG TABLET. PO SCH (19:44)
[2018-05-10] MEDS: MIRTAZAPINE 7.5 MG TABLET. PO SCH (19:45)
[2018-05-10] MEDS: rOPINIRole 1 MG TABLET. PO SCH (19:45)
--- NOTE | 2018-05-10 20:54 | PDOC ---
Exam Note: Fredi Note: Please also refer to the separate dictated note~for this date of service dictated separately.~Patient seen individually. Discussed the patient with Nursing staff reviewed the chart.~Reviewed interim history and current functioning. Reviewed vital signs,~Labs/ Radiology~and current medications noted below. Continue current treatment with the changes noted in the dictated addendum note Assessment: Vital Signs: Vital Signs Date Time Temp Pulse Resp B/P (MAP) Pulse Ox O2 Delivery O2 Flow Rate FiO2 05/10/18 15:54 97.7 63 18 166/68 (100) 97 Room Air I&O Intake and Output 05/10/18 07:00 Intake Total 960 ml Balance 960 ml Intake Oral 960 ml Current Medications: Meds: Current Medications Multi-Ingredient Ointment (Analgesic [place]) 1 lulu PRN QID PRN TP MUSCLE PAIN; Start 04/22/18 at 21:00 Al Hydroxide/Mg Hydroxide (Mylanta Plus Xs) 15 ml PRN AFTMEALHC PRN PO DYSPEPSIA; Start 04/22/18 at 21:00 Magnesium Hydroxide (Milk Of Magnesia) 2,400 mg PRN QHS PRN PO CONSTIPATION; Start 04/22/18 at 21:00 Mirtazapine (Remeron) 7.5 mg HS PO Last administered on 05/10/18at 19:45; Start 04/22/18 at 21:00 Buspirone HCl (Buspar) 15 mg DAILY PO Last administered on 04/27/18at 08:34; Start 04/23/18 at 09:00; Stop 04/27/18 at 18:13; Status DC Donepezil HCl (Aricept) 10 mg QHS PO Last administered on 05/10/18at 19:44; Start 04/22/18 at 21:00 Memantine (Namenda) 10 mg BID PO Last administered on 05/10/18at 19:45; Start at 21:00 Trazodone HCl (Desyrel) 50 mg PRN QHS PRN PO INSOMNIA Last administered on 04/24at 20:13; Start 04/22/18 at 21:15 Non-Formulary Medication (Pimavanserin Tartrate (Nuplazid)) 34 mg DAILY PO ; Start 04/23/18 at 09:00; Stop 04/23/18 at 09:00; Status DC Acetaminophen (Tylenol) 650 mg PRN Q4HRS PRN PO PAIN / TEMP; Start 04/22/18 at 21:15 Lisinopril (Prinivil) 20 mg DAILY PO Last administered on 05/10/18 07:46; Start 04/23/18 at 09:00 Tamsulosin HCl (Flomax) 0.4 mg DAILY PO Last administered on 05/10/18 07:46; Start 04/23/18 at 09:00 Aspirin (Aspirin Enteric Coated) 81 mg DAILYWBKFT PO Last administered on 07:46; Start 04/23/18 at 08:00 Atorvastatin Calcium (Lipitor) 10 mg QHS PO Last administered on 05/10/18 19: 44; Start 04/22/18 at 21:00 Calcium/Vitamin D (Oscal D 500mg/ 200uts) 1 tab DAILY PO Last administered on 07:46; Start 04/23/18 at 09:00 Finasteride (Proscar) 5 mg DAILY PO Last administered on 05/10/18 07:46; Start 04/23/18 at 09:00 Fluticasone Propionate (Flonase) 1 spray DAILY NS Last administered on 07:45; Start 04/23/18 at 09:00 Multivitamins/ Minerals (I-Liya) 1 tab QHS PO Last administered on 05/10/18 19 :44; Start 04/23/18 at 09:00 Multivitamins/ Minerals (I-Liya) 2 tab DAILY PO Last administered on 05/10/18 07:46; Start 04/23/18 at 09:00 Ropinirole HCl (Requip) 1 mg HS PO Last administered on 05/10/18 19:45; Start 04/22/18 at 21:00 Vitamin D (Vitamin D3) 50,000 unit WEEKLY PO Last administered on 05/07/18 08: 10; Start 04/23/18 at 16:00 Olanzapine (ZyPREXA ZYDIS) 2.5 mg PRN Q2HR PRN PO PSYCHOSIS Last administered on 05/03/18at 15:38; Start 04/23/18 at 21:45 Fluvoxamine Maleate (Luvox) 25 mg HS PO Last administered on 04/26/18at 19:57; Start 04/24/18 at 21:00; Stop 04/26/18 at 23:58; Status DC Sodium Chloride 500 ml @ 0 mls/hr 1X ONCE IV ; Start 04/24/18 at 22:30; Stop at 02:57; Status DC Sodium Chloride 1,000 ml @ 75 mls/hr [id number] IV Last administered on at 23:04; Start 04/24/18 at 23:00; Stop 04/25/18 at 12:31; Status DC Sodium Chloride 1,000 ml @ 1,000 mls/hr 1X ONCE IV Last administered on at 03:04; Start 04/25/18 at 03:00; Stop 04/25/18 at 03:59; Status DC Fluvoxamine Maleate (Luvox) 50 mg QHS PO Last administered on 05/01/18at 19:54; Start 04/27/18 at 21:00; Stop 05/02/18 at 18:10; Status DC Buspirone HCl (Buspar) 10 mg DAILY@0900,1700 PO Last administered on 05/10/18at 16:21; Start 04/28/18 at 09:00 Trimethoprim/ Sulfamethoxazole (Bactrim Ds) 1 tab BID PO Last administered on at 08:28; Start 04/30/18 at 21:00; Stop 05/08/18 at 16:00; Status DC Lactobacillus Rhamnosus (Culturelle) 1 cap BID PO Last administered on at 19:44; Start 04/30/18 at 21:00 Fluvoxamine Maleate (Luvox) 75 mg DAILY PO ; Start 05/03/18 at 09:00; Stop at 09:00; Status DC Fluvoxamine Maleate (Luvox) 75 mg DAILY PO ; Start 05/02/18 at 20:30; Stop at 20:30; Status DC Fluvoxamine Maleate (Luvox) 75 mg QHS PO Last administered on 05/06/18at 21:10; Start 05/02/18 at 21:00; Stop 05/07/18 at 16:38; Status DC Fluvoxamine Maleate (Luvox) 100 mg QHS PO Last administered on 05/10/18at 19:44 ; Start 05/07/18 at 21:00 Active Scripts Active Reported Acetaminophen 325 Mg Tablet 650 Mg PO PRN Q4HRS PRN Aspirin Ec (Aspirin) 81 Mg Tablet.dr 81 Mg PO DAILY Atorvastatin Calcium 10 Mg Tablet 10 Mg PO QHS Buspirone Hcl 15 Mg Tablet 15 Mg PO DAILY Calcium + Vitamin D Tablet (Calcium Carbonate/Vitamin D3) 1 Each Tablet 1 Tab PO DAILY Donepezil Hcl 10 Mg Tablet 10 Mg PO HS Finasteride 5 Mg Tablet 5 Mg PO DAILY Flonase Allergy Relief (Fluticasone Propionate) 9.9 Ml [place].susp 1 Sprays NS DAILY Lisinopril 20 Mg Tablet 20 Mg PO DAILY Namenda Xr (Memantine Hcl) 28 Mg Cap.spr.24 28 Mg PO DAILY Mirtazapine 7.5 Mg Tablet 7.5 Mg PO HS Cbgzo-Hwuscca-Uxbpvrkl Tablet (Multivit-Min/Iron Fum/Folic AC) 1 Each Tablet 1 Tab PO HS Ogrpr-Qnwzsta-Oztnpmvq Tablet (Multivit-Min/Iron Fum/Folic AC) 1 Each Tablet 2 Tab PO DAILY Seroquel (Quetiapine Fumarate) 25 Mg Tablet 12.5 Mg PO PRN PRN Requip (Ropinirole Hcl) 1 Mg Tablet 1 Mg PO HS Tamsulosin Hcl 0.4 Mg Cap.er.24h 0.4 Mg PO DAILY Trazodone Hcl 50 Mg Tablet 50 Mg PO PRN QHS PRN I have reviewed the current psychotropics carefully including drug interactions. Risk benefit ratio favors no change other than as noted in my dictated progress note. 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
--- NOTE | 2018-05-10 21:45 | PN ---
DATE: 05/08/2018 PSYCHIATRIC PROGRESS NOTE This is a late entry for 05/08/2018, covers elements not covered in my initial note. SUBJECTIVE: I met with the patient evening of 05/08/2018. Overall, the patient remains forgetful, confused, anxious, repetitive and asking about the same thing over and over because he forgets what has been discussed with him. He met with me several times on rounds as he followed me around the unit after I had spent some time with him. Otherwise, he has been calm, compliant with medications. REVIEW OF SYSTEMS: Ambulation impaired with walker. No CV, , pulmonary, eye system symptoms on review. MENTAL STATUS EXAM: Oriented to himself. Insight, judgment, recent and remote memory, attention, concentration, fund of knowledge poor, consistent with his diagnosis mentioned in my initial note. PLAN: No change from initial note. Luvox is being increased to 100 mg a day for his obsessive ruminations. ROSALIE CONTI MD DR: ROSALEE/simba JOB#: [id number] / [id number]
--- NOTE | 2018-05-10 22:43 | PN ---
DATE: 05/09/2018 This is a late entry for 05/09/2018 covers elements not covered in my initial note. SUBJECTIVE: I met with the patient in the evening. The patient slept 6-3/4 hours previous evening. Remains forgetful, repetitive in his thinking. REVIEW OF SYSTEMS: No CV, , pulmonary, eye, ENT system symptoms on review. Gait unsteady with walker. MENTAL STATUS EXAM: Oriented to himself. Insight, judgment, recent and remote memory, attention, concentration, fund of knowledge poor, consistent with his diagnosis mentioned in my initial note. PLAN: No change from initial note. MAN Beverly CONTI MD DR: ROSALEE/simba JOB#: [id number] / [id number]
[2018-05-11 06:38] VITALS: BP 105/51
[2018-05-11] MEDS: ASPIRIN ENTERIC COATED 81 MG TABLET.DR. PO SCH (08:22)
[2018-05-11] MEDS: MULTIVITAMIN I-VITE TABLET. PO SCH ×2 (08:22→19:34)
[2018-05-11] MEDS: LACTOBACILLUS RHAMNOSUS GG 1 CAPSULE. PO SCH ×2 (08:23→19:34)
[2018-05-11] MEDS: busPIRone 10 MG TABLET. PO SCH ×2 (08:23→17:04)
[2018-05-11] MEDS: CALCIUM CARB/VIT D3 500/200 TABLET PO SCH (08:23)
[2018-05-11] MEDS: TAMSULOSIN 0.4 MG CAP.ER.24H. PO SCH (08:23)
[2018-05-11] MEDS: MEMANTINE 10 MG TABLET. PO SCH ×2 (08:24→19:35)
[2018-05-11] MEDS: FLUTICASONE 50MCG/NASAL SPRAY 16GM BOTTLE. NS SCH (08:24)
[2018-05-11] MEDS: FINASTERIDE 5 MG TABLET PO SCH (08:24)
[2018-05-11 08:26] VITALS: BP 106/53
[2018-05-11] MEDS: LISINOPRIL 20 MG TABLET PO SCH (09:00)
[2018-05-11 16:19] VITALS: BP 104/57
[2018-05-11] MEDS: DONEPEZIL HCL 10 MG TABLET PO SCH (19:34)
[2018-05-11] MEDS: ATORVASTATIN CALCIUM 10 MG TABLET. PO SCH (19:34)
[2018-05-11] MEDS: MIRTAZAPINE 7.5 MG TABLET. PO SCH (19:35)
[2018-05-11] MEDS: rOPINIRole 1 MG TABLET. PO SCH (19:35)
--- NOTE | 2018-05-11 20:53 | PDOC ---
Exam Note: Fredi Note: Please also refer to the separate dictated note~for this date of service dictated separately.~Patient seen individually. Discussed the patient with Nursing staff reviewed the chart.~Reviewed interim history and current functioning. Reviewed vital signs,~Labs/ Radiology~and current medications noted below. Continue current treatment with the changes noted in the dictated addendum note Assessment: Vital Signs: Vital Signs Date Time Temp Pulse Resp B/P (MAP) Pulse Ox O2 Delivery O2 Flow Rate FiO2 05/11/18 16:19 98.3 75 19 104/57 (73) 95 05/10/18 15:54 Room Air I&O Intake and Output 05/11/18 07:00 Intake Total 960 ml Balance 960 ml Intake Oral 960 ml # Voids 2 Current Medications: Meds: Current Medications Multi-Ingredient Ointment (Analgesic [place]) 1 lulu PRN QID PRN TP MUSCLE PAIN; Start 04/22/18 at 21:00 Al Hydroxide/Mg Hydroxide (Mylanta Plus Xs) 15 ml PRN AFTMEALHC PRN PO DYSPEPSIA; Start 04/22/18 at 21:00 Magnesium Hydroxide (Milk Of Magnesia) 2,400 mg PRN QHS PRN PO CONSTIPATION; Start 04/22/18 at 21:00 Mirtazapine (Remeron) 7.5 mg HS PO Last administered on 05/11/18at 19:35; Start 04/22/18 at 21:00 Buspirone HCl (Buspar) 15 mg DAILY PO Last administered on 04/27/18at 08:34; Start 04/23/18 at 09:00; Stop 04/27/18 at 18:13; Status DC Donepezil HCl (Aricept) 10 mg QHS PO Last administered on 05/11/18at 19:34; Start 04/22/18 at 21:00 Memantine (Namenda) 10 mg BID PO Last administered on 05/11/18at 19:35; Start at 21:00 Trazodone HCl (Desyrel) 50 mg PRN QHS PRN PO INSOMNIA Last administered on 04/24at 20:13; Start 04/22/18 at 21:15 Non-Formulary Medication (Pimavanserin Tartrate (Nuplazid)) 34 mg DAILY PO ; Start 04/23/18 at 09:00; Stop 04/23/18 at 09:00; Status DC Acetaminophen (Tylenol) 650 mg PRN Q4HRS PRN PO PAIN / TEMP; Start 04/22/18 at 21:15 Lisinopril (Prinivil) 20 mg DAILY PO Last administered on 05/10/18 07:46; Start 04/23/18 at 09:00 Tamsulosin HCl (Flomax) 0.4 mg DAILY PO Last administered on 05/11/18 08:23; Start 04/23/18 at 09:00 Aspirin (Aspirin Enteric Coated) 81 mg DAILYWBKFT PO Last administered on 08:22; Start 04/23/18 at 08:00 Atorvastatin Calcium (Lipitor) 10 mg QHS PO Last administered on 05/11/18 19: 34; Start 04/22/18 at 21:00 Calcium/Vitamin D (Oscal D 500mg/ 200uts) 1 tab DAILY PO Last administered on 08:23; Start 04/23/18 at 09:00 Finasteride (Proscar) 5 mg DAILY PO Last administered on 05/11/18 08:24; Start 04/23/18 at 09:00 Fluticasone Propionate (Flonase) 1 spray DAILY NS Last administered on 08:24; Start 04/23/18 at 09:00 Multivitamins/ Minerals (I-Liya) 1 tab QHS PO Last administered on 05/11/18 19 :34; Start 04/23/18 at 09:00 Multivitamins/ Minerals (I-Liya) 2 tab DAILY PO Last administered on 05/11/18 08:22; Start 04/23/18 at 09:00 Ropinirole HCl (Requip) 1 mg HS PO Last administered on 05/11/18 19:35; Start 04/22/18 at 21:00 Vitamin D (Vitamin D3) 50,000 unit WEEKLY PO Last administered on 05/07/18 08: 10; Start 04/23/18 at 16:00 Olanzapine (ZyPREXA ZYDIS) 2.5 mg PRN Q2HR PRN PO PSYCHOSIS Last administered on 05/11/18 14:41; Start 04/23/18 at 21:45 Fluvoxamine Maleate (Luvox) 25 mg HS PO Last administered on 04/26/18at 19:57; Start 04/24/18 at 21:00; Stop 04/26/18 at 23:58; Status DC Sodium Chloride 500 ml @ 0 mls/hr 1X ONCE IV ; Start 04/24/18 at 22:30; Stop at 02:57; Status DC Sodium Chloride 1,000 ml @ 75 mls/hr [id number] IV Last administered on at 23:04; Start 04/24/18 at 23:00; Stop 04/25/18 at 12:31; Status DC Sodium Chloride 1,000 ml @ 1,000 mls/hr 1X ONCE IV Last administered on at 03:04; Start 04/25/18 at 03:00; Stop 04/25/18 at 03:59; Status DC Fluvoxamine Maleate (Luvox) 50 mg QHS PO Last administered on 05/01/18at 19:54; Start 04/27/18 at 21:00; Stop 05/02/18 at 18:10; Status DC Buspirone HCl (Buspar) 10 mg DAILY@0900,1700 PO Last administered on 05/11/18at 17:04; Start 04/28/18 at 09:00 Trimethoprim/ Sulfamethoxazole (Bactrim Ds) 1 tab BID PO Last administered on at 08:28; Start 04/30/18 at 21:00; Stop 05/08/18 at 16:00; Status DC Lactobacillus Rhamnosus (Culturelle) 1 cap BID PO Last administered on at 19:34; Start 04/30/18 at 21:00 Fluvoxamine Maleate (Luvox) 75 mg DAILY PO ; Start 05/03/18 at 09:00; Stop at 09:00; Status DC Fluvoxamine Maleate (Luvox) 75 mg DAILY PO ; Start 05/02/18 at 20:30; Stop at 20:30; Status DC Fluvoxamine Maleate (Luvox) 75 mg QHS PO Last administered on 05/06/18at 21:10; Start 05/02/18 at 21:00; Stop 05/07/18 at 16:38; Status DC Fluvoxamine Maleate (Luvox) 100 mg QHS PO Last administered on 05/11/18at 19:34 ; Start 05/07/18 at 21:00 Active Scripts Active Reported Acetaminophen 325 Mg Tablet 650 Mg PO PRN Q4HRS PRN Aspirin Ec (Aspirin) 81 Mg Tablet.dr 81 Mg PO DAILY Atorvastatin Calcium 10 Mg Tablet 10 Mg PO QHS Buspirone Hcl 15 Mg Tablet 15 Mg PO DAILY Calcium + Vitamin D Tablet (Calcium Carbonate/Vitamin D3) 1 Each Tablet 1 Tab PO DAILY Donepezil Hcl 10 Mg Tablet 10 Mg PO HS Finasteride 5 Mg Tablet 5 Mg PO DAILY Flonase Allergy Relief (Fluticasone Propionate) 9.9 Ml [place].susp 1 Sprays NS DAILY Lisinopril 20 Mg Tablet 20 Mg PO DAILY Namenda Xr (Memantine Hcl) 28 Mg Cap.spr.24 28 Mg PO DAILY Mirtazapine 7.5 Mg Tablet 7.5 Mg PO HS Poivq-Smouiou-Fppdzphe Tablet (Multivit-Min/Iron Fum/Folic AC) 1 Each Tablet 1 Tab PO HS Nwkjs-Xzaxkix-Qkmreedk Tablet (Multivit-Min/Iron Fum/Folic AC) 1 Each Tablet 2 Tab PO DAILY Seroquel (Quetiapine Fumarate) 25 Mg Tablet 12.5 Mg PO PRN PRN Requip (Ropinirole Hcl) 1 Mg Tablet 1 Mg PO HS Tamsulosin Hcl 0.4 Mg Cap.er.24h 0.4 Mg PO DAILY Trazodone Hcl 50 Mg Tablet 50 Mg PO PRN QHS PRN I have reviewed the current psychotropics carefully including drug interactions. Risk benefit ratio favors no change other than as noted in my dictated progress note. Diagnosis: Problems: (1) Anxiety disorder (2) Dementia in Alzheimer's disease with delusions (3) Dementia in Alzheimer's disease with depression (4) Dementia, vascular, with delusions (5) Dementia, vascular, with depression (6) Impulse control disorder ROSALIE CONTI MD May 11, 2018 20:53
--- NOTE | 2018-05-11 21:18 | PN ---
DATE: 05/10/2018 This is a late entry, 05/10/2018, covers the elements not covered in my initial note. SUBJECTIVE: I met with the patient in the evening. The patient slept 7 hours previous night. He remains somewhat obsessive, repetitive about discharge plans, consequent to a short-term memory deficits and confusion. REVIEW OF SYSTEMS: Ambulation impaired, with walker. No CV, , pulmonary, eye, ENT system symptoms on review. MENTAL STATUS EXAM: Oriented to himself and situation. Speech coherent, abstraction fair, computation impaired, language function intact. Short term memory is impaired. No active psychotic symptoms, suicidal or homicidal ideation. LABORATORY DATA: Reviewed. IMPRESSION: Unchanged from initial note. He is overall less agitated, repetitive, and less anxious. PLAN: No change from initial note. MAN Beverly CONTI MD DR: ROSALEE/simba JOB#: [id number] / [id number]
[2018-05-11] MEDS ORDERED: BUSP10TA PO (22:41)
[2018-05-11] MEDS ORDERED: MEMA10TA PO (22:42)
[2018-05-11] MEDS ORDERED: CHOL500021 PO (22:44)
[2018-05-11] MEDS ORDERED: LACT1CAP21 PO (22:45)
[2018-05-11] MEDS ORDERED: MAG30ORA2 PO (22:46)
[2018-05-11] MEDS ORDERED: MAGN2400 PO (22:47)
[2018-05-11] MEDS ORDERED: METH29OI TP (22:47)
[2018-05-11] MEDS ORDERED: OLAN5TAB5 PO (22:48)
[2018-05-11] MEDS ORDERED: FLUV100T2 PO (22:50)
[2018-05-12 05:45] VITALS: BP 146/86
[2018-05-12] MEDS: MULTIVITAMIN I-VITE TABLET. PO SCH (09:25)
[2018-05-12] MEDS: CALCIUM CARB/VIT D3 500/200 TABLET PO SCH (09:25)
[2018-05-12 09:26] VITALS: BP 146/86
[2018-05-12] MEDS: LACTOBACILLUS RHAMNOSUS GG 1 CAPSULE. PO SCH (09:26)
[2018-05-12] MEDS: LISINOPRIL 20 MG TABLET PO SCH (09:26)
[2018-05-12] MEDS: busPIRone 10 MG TABLET. PO SCH (09:26)
[2018-05-12] MEDS: MEMANTINE 10 MG TABLET. PO SCH (09:26)
[2018-05-12] MEDS: TAMSULOSIN 0.4 MG CAP.ER.24H. PO SCH (09:26)
[2018-05-12] MEDS: FINASTERIDE 5 MG TABLET PO SCH (09:26)
[2018-05-12] MEDS: ASPIRIN ENTERIC COATED 81 MG TABLET.DR. PO SCH (09:26)
[2018-05-12] MEDS: FLUTICASONE 50MCG/NASAL SPRAY 16GM BOTTLE. NS SCH (09:27)
--- NOTE | 2018-05-12 20:54 | PDOC ---
Exam Note: Fredi Note: Please also refer to the separate dictated note~for this date of service dictated separately.~Patient seen individually. Discussed the patient with Nursing staff reviewed the chart.~Reviewed interim history and current functioning. Reviewed vital signs,~Labs/ Radiology~and current medications noted below. Continue current treatment with the changes noted in the dictated addendum note Assessment: Vital Signs: Vital Signs Date Time Temp Pulse Resp B/P (MAP) Pulse Ox O2 Delivery O2 Flow Rate FiO2 05/12/18 09:26 97 146/86 05/12/18 05:45 97.8 18 96 05/10/18 15:54 Room Air I&O Intake and Output 05/12/18 07:00 Intake Total 1620 ml Balance 1620 ml Intake Oral 1620 ml # Voids 1 Current Medications: Meds: Current Medications Multi-Ingredient Ointment (Analgesic [place]) 1 latrice PRN QID PRN TP MUSCLE PAIN; Start 04/22/18 at 21:00; Stop 05/12/18 at 12:06; Status DC Al Hydroxide/Mg Hydroxide (Mylanta Plus Xs) 15 ml PRN AFTMEALHC PRN PO DYSPEPSIA; Start 04/22/18 at 21:00; Stop 05/12/18 at 12:06; Status DC Magnesium Hydroxide (Milk Of Magnesia) 2,400 mg PRN QHS PRN PO CONSTIPATION; Start 04/22/18 at 21:00; Stop 05/12/18 at 12:06; Status DC Mirtazapine (Remeron) 7.5 mg HS PO Last administered on 05/11/18at 19:35; Start 04/22/18 at 21:00; Stop 05/12/18 at 12:06; Status DC Buspirone HCl (Buspar) 15 mg DAILY PO Last administered on 04/27/18at 08:34; Start 04/23/18 at 09:00; Stop 04/27/18 at 18:13; Status DC Donepezil HCl (Aricept) 10 mg QHS PO Last administered on 05/11/18at 19:34; Start 04/22/18 at 21:00; Stop 05/12/18 at 12:06; Status DC Memantine (Namenda) 10 mg BID PO Last administered on 05/12/18at 09:26; Start at 21:00; Stop 05/12/18 at 12:06; Status DC Trazodone HCl (Desyrel) 50 mg PRN QHS PRN PO INSOMNIA Last administered on 04/24at 20:13; Start 04/22/18 at 21:15; Stop 05/12/18 at 12:06; Status DC Non-Formulary Medication (Pimavanserin Tartrate (Nuplazid)) 34 mg DAILY PO ; Start 04/23/18 at 09:00; Stop 04/23/18 at 09:00; Status DC Acetaminophen (Tylenol) 650 mg PRN Q4HRS PRN PO PAIN / TEMP; Start 04/22/18 at 21:15; Stop 05/12/18 at 12:06; Status DC Lisinopril (Prinivil) 20 mg DAILY PO Last administered on 05/12/18at 09:26; Start 04/23/18 at 09:00; Stop 05/12/18 at 12:06; Status DC Tamsulosin HCl (Flomax) 0.4 mg DAILY PO Last administered on 05/12/18at 09:26; Start 04/23/18 at 09:00; Stop 05/12/18 at 12:06; Status DC Aspirin (Aspirin Enteric Coated) 81 mg DAILYWBKFT PO Last administered on at 09:26; Start 04/23/18 at 08:00; Stop 05/12/18 at 12:06; Status DC Atorvastatin Calcium (Lipitor) 10 mg QHS PO Last administered on 05/11/18at 19: 34; Start 04/22/18 at 21:00; Stop 05/12/18 at 12:06; Status DC Calcium/Vitamin D (Oscal D 500mg/ 200uts) 1 tab DAILY PO Last administered on at 09:25; Start 04/23/18 at 09:00; Stop 05/12/18 at 12:06; Status DC Finasteride (Proscar) 5 mg DAILY PO Last administered on 05/12/18at 09:26; Start 04/23/18 at 09:00; Stop 05/12/18 at 12:06; Status DC Fluticasone Propionate (Flonase) 1 spray DAILY NS Last administered on at 09:27; Start 04/23/18 at 09:00; Stop 05/12/18 at 12:06; Status DC Multivitamins/ Minerals (I-Liya) 1 tab QHS PO Last administered on 05/11/18at 19 :34; Start 04/23/18 at 09:00; Stop 05/12/18 at 12:06; Status DC Multivitamins/ Minerals (I-Liya) 2 tab DAILY PO Last administered on 05/12/18at 09:25; Start 04/23/18 at 09:00; Stop 05/12/18 at 12:06; Status DC Ropinirole HCl (Requip) 1 mg HS PO Last administered on 05/11/18at 19:35; Start 04/22/18 at 21:00; Stop 05/12/18 at 12:06; Status DC Vitamin D (Vitamin D3) 50,000 unit WEEKLY PO Last administered on 05/07/18at 08: 10; Start 04/23/18 at 16:00; Stop 05/12/18 at 12:06; Status DC Olanzapine (ZyPREXA ZYDIS) 2.5 mg PRN Q2HR PRN PO PSYCHOSIS Last administered on 05/11/18at 14:41; Start 04/23/18 at 21:45; Stop 05/12/18 at 12:06; Status DC Fluvoxamine Maleate (Luvox) 25 mg HS PO Last administered on 04/26/18at 19:57; Start 04/24/18 at 21:00; Stop 04/26/18 at 23:58; Status DC Sodium Chloride 500 ml @ 0 mls/hr 1X ONCE IV ; Start 04/24/18 at 22:30; Stop at 02:57; Status DC Sodium Chloride 1,000 ml @ 75 mls/hr [id number] IV Last administered on at 23:04; Start 04/24/18 at 23:00; Stop 04/25/18 at 12:31; Status DC Sodium Chloride 1,000 ml @ 1,000 mls/hr 1X ONCE IV Last administered on at 03:04; Start 04/25/18 at 03:00; Stop 04/25/18 at 03:59; Status DC Fluvoxamine Maleate (Luvox) 50 mg QHS PO Last administered on 05/01/18at 19:54; Start 04/27/18 at 21:00; Stop 05/02/18 at 18:10; Status DC Buspirone HCl (Buspar) 10 mg DAILY@0900,1700 PO Last administered on 05/12/18at 09:26; Start 04/28/18 at 09:00; Stop 05/12/18 at 12:06; Status DC Trimethoprim/ Sulfamethoxazole (Bactrim Ds) 1 tab BID PO Last administered on at 08:28; Start 04/30/18 at 21:00; Stop 05/08/18 at 16:00; Status DC Lactobacillus Rhamnosus (Culturelle) 1 cap BID PO Last administered on at 09:26; Start 04/30/18 at 21:00; Stop 05/12/18 at 12:06; Status DC Fluvoxamine Maleate (Luvox) 75 mg DAILY PO ; Start 05/03/18 at 09:00; Stop at 09:00; Status DC Fluvoxamine Maleate (Luvox) 75 mg DAILY PO ; Start 05/02/18 at 20:30; Stop at 20:30; Status DC Fluvoxamine Maleate (Luvox) 75 mg QHS PO Last administered on 05/06/18at 21:10; Start 05/02/18 at 21:00; Stop 05/07/18 at 16:38; Status DC Fluvoxamine Maleate (Luvox) 100 mg QHS PO Last administered on 05/11/18at 19:34 ; Start 05/07/18 at 21:00; Stop 05/12/18 at 12:06; Status DC Active Scripts Active Reported Fluvoxamine Maleate 100 Mg Tablet 100 Mg PO QHS Zyprexa Zydis (Olanzapine) 5 Mg Tab.rapdis 2.5 Mg PO PRN Q2HR PRN Analgesic [place] (Methyl Salicylate/Menthol) 28 Gm Oint...g. 1 Latrice TP PRN QID PRN Milk Of Magnesia (Magnesium Hydroxide) 2,400 Mg/10 Ml [place].susp 2,400 Mg PO PRN QHS PRN Mag-Al Plus Xs Suspension (Mag Hydrox/Al Hydrox/Simeth) 30 Ml Oral.susp 15 Ml PO PRN AFTMEALHC PRN Culturelle (Lactobacillus Rhamnosus Gg) 1 Each Capsule 1 Each PO BID D3-50 (Cholecalciferol (Vitamin D3)) 50,000 Unit Capsule 50,000 Unit PO WEEKLY Namenda (Memantine Hcl) 10 Mg Tablet 10 Mg PO BID Buspirone Hcl 10 Mg Tablet 10 Mg PO BID@0900,1700 Acetaminophen 325 Mg Tablet 650 Mg PO PRN Q4HRS PRN Aspirin Ec (Aspirin) 81 Mg Tablet.dr 81 Mg PO DAILY Atorvastatin Calcium 10 Mg Tablet 10 Mg PO QHS Calcium + Vitamin D Tablet (Calcium Carbonate/Vitamin D3) 1 Each Tablet 1 Tab PO DAILY Donepezil Hcl 10 Mg Tablet 10 Mg PO HS Finasteride 5 Mg Tablet 5 Mg PO DAILY Flonase Allergy Relief (Fluticasone Propionate) 9.9 Ml [place].susp 1 Sprays NS DAILY Lisinopril 20 Mg Tablet 20 Mg PO DAILY Mirtazapine 7.5 Mg Tablet 7.5 Mg PO HS Rkrbh-Erettqf-Gyawniji Tablet (Multivit-Min/Iron Fum/Folic AC) 1 Each Tablet 1 Tab PO HS Yjuoh-Ulxnxgb-Vhurgxlp Tablet (Multivit-Min/Iron Fum/Folic AC) 1 Each Tablet 2 Tab PO DAILY Requip (Ropinirole Hcl) 1 Mg Tablet 1 Mg PO HS Tamsulosin Hcl 0.4 Mg Cap.er.24h 0.4 Mg PO DAILY Trazodone Hcl 50 Mg Tablet 50 Mg PO PRN QHS PRN I have reviewed the current psychotropics carefully including drug interactions. Risk benefit ratio favors no change other than as noted in my dictated progress note. Diagnosis: Problems: (1) Anxiety disorder (2) Dementia in Alzheimer's disease with delusions (3) Dementia in Alzheimer's disease with depression (4) Dementia, vascular, with delusions (5) Dementia, vascular, with depression (6) Impulse control disorder ROSALIE CONTI MD May 12, 2018 20:54
--- NOTE | 2018-05-12 22:02 | PN ---
DATE: 05/11/2018 PSYCHIATRIC PROGRESS NOTE This late entry, 05/11/2018, covers elements not covered in my initial note. SUBJECTIVE: I met with the patient in the evening at length repeatedly as he would come back asking the same questions. He slept 4 hours previous evening, gets a little intrusive with other patients received Zyprexa at 1400 hours. He often forgets to take his walker. REVIEW OF SYSTEMS: Ambulation impaired with walker. No CV, , pulmonary, eye, ENT system symptoms on review, slightly hard of hearing. MENTAL STATUS EXAM: Oriented to himself. Insight, judgment, recent and remote memory, attention, concentration, fund of knowledge poor, consistent with his diagnosis mentioned in my initial note. PLAN: No change from initial note. MAN Beverly CONTI MD DR: ROSALEE/simba JOB#: [id number] / [id number]
--- NOTE | 2018-05-13 21:37 | DS ---
DATE OF DISCHARGE: 05/12/2018 This late entry, 05/12/2018, covers elements not covered in my initial note. I met with the patient individually. REASON FOR ADMISSION: Please refer to the admission history for details. Briefly, the patient is an 82-year-old male, referred from the Emergency Room at [facility] where he presented from home on account of increased agitation and aggression since starting Seroquel, reportedly 5 days previously for increased delusions within the context of his dementia. He was thinking he was going to be evicted, was quite psychotic, thought his for either trying to kill him or leave him. He was also having visual hallucinations and amongst other things, feeling moving. He has suspicious paranoid, had failed outpatient psychiatric interventions, resulting in this referral by his primary care physician. SIGNIFICANT FINDINGS AND CLINICAL COURSE: Following admission, the patient was seen daily individually by myself from a psychiatric standpoint, medical followup per Dr. Petersen/Dr. Damon. The patient remained extremely confused, very anxious, obsessive, repetitive, asking the same questions over and over, following me around the unit back at the nursing station, standing outside for long periods of time, repeating the same questions due to his significant short term memory deficits. Adjustments were made in his psychotropics and he seemed to respond to a combination of BuSpar 10 mg at 0900 and 1700; Aricept 10 mg at bedtime, Remeron 7.5 at bedtime, Namenda 10 b.i.d.; trazodone 50 at bedtime p.r.n., may repeat x 2 for insomnia; Zyprexa p.r.n., Luvox 100 mg at bedtime for his marked obsessive, repetitive behaviors and he was also on Requip 1 mg at bedtime. Gradually, his mood appeared to improve. He was less anxious, obsessive, repetitive. REVIEW OF SYSTEMS: Ambulation impaired with walker. No CV, , pulmonary, eye, ENT system symptoms on review. Reliability poor. MENTAL STATUS EXAM: Oriented to himself. Insight, judgment, recent and remote memory, attention, concentration, fund of knowledge poor, consistent with his diagnosis mentioned in my initial note. CONDITION AT DISCHARGE: Improved. FINAL DIAGNOSES: Major neurocognitive disorder, Alzheimer, vascular with delusion, depression, behavioral disturbance; anxiety disorder, unspecified; impulse control disorder, unspecified. Rest unchanged from admission. DISCHARGE MEDICATIONS: Please refer to the [facility]. DISCHARGE INSTRUCTIONS: Outpatient psychiatric and medical followup at the senior living. Time for discharge day management greater than 30 minutes. ROSALIE CONTI MD DR: [email or web address]/simba JOB#: [id number] / [id number]
== END 2018-05-12 11:45 | DRG 57 ==
LOC: GEROPSY 20:38
PROVIDERS: ADMIT Psychiatry & Neurology Psychiatry; ATTEND Psychiatry & Neurology Psychiatry
DX: G30.9 Alzheimer's disease, unspecified (principal); N39.0 Urinary tract infection, site not specified; F01.50 Vascular dementia, unspecified severity, without behavioral disturbance, psychotic disturbance, mood disturbance, and anxiety; E78.5 Hyperlipidemia, unspecified; F02.80 Dementia in other diseases classified elsewhere, unspecified severity, without behavioral disturbance, psychotic disturbance, mood disturbance, and anxiety; F32.9 Major depressive disorder, single episode, unspecified; F41.9 Anxiety disorder, unspecified; F63.9 Impulse disorder, unspecified; G25.81 Restless legs syndrome; G47.00 Insomnia, unspecified; I10 Essential (primary) hypertension; M48.061 Spinal stenosis, lumbar region without neurogenic claudication; M48.02 Spinal stenosis, cervical region; M81.0 Age-related osteoporosis without current pathological fracture; N40.0 Benign prostatic hyperplasia without lower urinary tract symptoms; Z79.899 Other long term (current) drug therapy; Z86.73 Personal history of transient ischemic attack (TIA), and cerebral infarction without residual deficits; Z87.891 Personal history of nicotine dependence; Z90.49 Acquired absence of other specified parts of digestive tract
CPT/HCPCS: 36415; 80053; 80061; 81001; 82306; 82553; 82607; 82803; 82947; 83036; 83540; 83550; 83605; 83735; 84436; 84443; 84480; 84484; 85025; 85027; 86592; 87086; 87186; 93005; 97110; 97116; 97530; 97535; J7030